=== PATIENT | male | born 1960 | race Caucasian/White ===

== ENCOUNTER 2024-10-15 12:48 | Emergency (ER) | payer MEDICARE, SELFPAY ==
--- NOTE | 2024-10-15 12:51 | ED_ITS ---
HPI - URI/Sore Throat General Chief Complaint: Upper Respiratory Infection Stated Complaint: Sore Throat/Congestion Time Seen by Provider: 10/15/24 13:18 Source: patient and RN notes reviewed Mode of arrival: ambulatory Limitations: no limitations History of Present Illness HPI Narrative: 64-year-old male presents with concern for stuffy nose, drainage, cough that started yesterday. He reports he has taken Tylenol. He denies known sick contacts. MD elicited complaint: cough and nasal congestion Related Data Home Medications ?Medication ?Instructions ?Recorded ?Confirmed ?Last Taken ?Type aspirin 81 mg chewable tablet 10/15/24 Unknown History carisoprodol 350 mg tablet mg 10/15/24 Unknown History carvedilol 12.5 mg tablet mg 10/15/24 Unknown History clonidine HCl 0.1 mg tablet mg 10/15/24 Unknown History fenofibrate micronized 200 mg mg 10/15/24 Unknown History capsule furosemide 40 mg tablet mg 10/15/24 Unknown History gabapentin 300 mg capsule mg 10/15/24 Unknown History hydralazine 100 mg tablet mg 10/15/24 Unknown History hydrocodone 5 mg-acetaminophen 325 tablet 10/15/24 Unknown History mg tablet lisinopril 40 mg tablet mg 10/15/24 Unknown History metformin 500 mg tablet mg 10/15/24 Unknown History omeprazole 20 mg capsule,delayed mg 10/15/24 Unknown History release oxycodone 10 mg tablet mg 10/15/24 Unknown History spironolactone 25 mg tablet mg 10/15/24 Unknown History Allergies Allergy/AdvReac Type Severity Reaction Status Date / Time No Known Allergies Allergy Verified 10/15/24 13:13 Review of Systems Review of Systems: CONSTITUTIONAL: Denies malaise, chills, sweats, or fever. EYES: Denies visual changes, redness, or discharge. ENT: Reports rhinorrhea, congestion. Denies sinus pain, otalgia and sore throa t. CARDIOVASCULAR: Denies chest pain, palpitations, or edema. RESPIRATORY: Reports cough. Denies dyspnea. GASTROINTESTINAL: Denies abdominal pain, nausea, vomiting, diarrhea SKIN: Denies rash or itching. MUSCULOSKELETAL: Denies myalgia. NEUROLOGIC: Denies headache. All systems reviewed & are unremarkable except as noted in HPI and below PMFSH Comments At time of signature, agree with nursing past medical, surgical, social and family history. There is no relevant family history pertinent to the presenting complaint Exam Narrative: GENERAL: Well-appearing, well-nourished, and in no acute distress. HEAD: Normocephalic EYES: PERRLA, conjunctivae clear ENT: Nares clear. Mucous membranes moist. TM pearly ramsay with sharp light reflex bilaterally; no tragal tenderness. Oropharynx not erythematous without lesions. Tonsils not enlarged and without exudate, no drooling, no hoarseness, no trismus, uvula midline. NECK: Supple. No lymphadenopathy CHEST: Clear to auscultation, breath sounds equal. No wheezing, rhonchi, rales, or stridor. No respiratory distress, speaks in full sentences. HEART: Regular rate and rhythm. No murmur heard. SKIN: Warm, dry, no rash. NEURO: Alert and oriented x3. PSYCH: Normal mood and affect Course Course Emergency Course: Patient is aware of diagnosis, understands and agrees to treatment plan. Anticipatory guidance given. Patient agrees to follow-up as directed and is aware of reasons to seek care at the emergency department. Portions of this record may have been created with voice recognition software Level of Care: Express Care Visit Vital Signs Vital signs: Vital Signs Temperature 97.4 F L 10/15/24 12:55 Pulse Rate 76 10/15/24 12:55 Respiratory Rate 16 10/15/24 12:55 Blood Pressure 190/80 H 10/15/24 12:55 Pulse Oximetry 100 10/15/24 12:55 Oxygen Delivery Room Air 10/15/24 12:55 Temperature 97.4 F L 10/15/24 12:55 Pulse Rate 76 10/15/24 12:55 Respiratory Rate 16 10/15/24 12:55 Blood Pressure 190/80 H 10/15/24 12:55 Pulse Oximetry 100 10/15/24 12:55 Oxygen Delivery Room Air 10/15/24 12:55 Reviewed. MDM - URI/Sore Throat MDM Narrative Medical decision making narrative: Differential diagnosis considered: Dumont virus, strep pharyngitis, allergic rhinitis, upper respiratory tract infection, sinusitis, rhinosinusitis, nasopharyngitis. viral pharyngitis, otitis media, otitis externa, pneumonia, bronchitis, viral cough syndrome, viral syndrome, and influenza. Exam findings show no acute concerns or changes; patient is non-toxic appearing and is in no distress. Patient is appropriate for outpatient treatment and follow-up. Lab Data Attestation: I reviewed the patient's lab results. Critical Care Time Critical Care Time Critical Care Time: No Discharge Plan Discharge Clinical Impression: Upper respiratory infection Patient Disposition: Home, Self-Care Condition: Stable Instructions: Upper Respiratory Infection (ED) Additional Instructions: Your rapid COVID and flu tests are negative Your rapid strep swab was negative today at [facility]. A throat culture will be sent to the laboratory for further testing. If the test is positive, you will receive a phone call within 48 hours and an appropriate antibiotic will be initiated at that time. Your symptoms are likely due to a viral illness, which is not treated with antibiotics. Viral symptoms can be present for up to a few weeks. -Alternate Tylenol and Motrin per package directions for fever or pain. -Antihistamine medication such as Benadryl at night and Zyrtec during the day can help improve symptoms. -Eat and drink things that are easy to swallow, like tea or soup, or popsicles to suck on. -Oral rinses such as: Salt water gargles and/or may use topical anesthetic (eg. Chloraseptic spray) or lozenges to relieve dryness or throat pain). -Frequent hand washing or hand tire technician is one of the best ways to prevent spread of infection. -Follow up with primary care provider in 2-3 days if condition is not improving; or seek ER visit if you have trouble breathing, cannot drink enough fluids, have muffled voice, difficulty opening your mouth, or severe swelling. Patient Language: Welsh Prescriptions: New dextromethorphan-guaifenesin [Mucinex DM] 60-1,200 mg tablet extended release 12 hr 1 tablet PO Q12H Qty: 12 0RF ipratropium bromide 21 mcg (0.03 %) spray,non-aerosol 2 spray NASAL TID PRN (Reason: nasal drainage) Qty: 30 0RF Rx Instructions: administer into each nostril No Action carisoprodol 350 mg tablet furosemide 40 mg tablet metformin 500 mg tablet clonidine HCl 0.1 mg tablet carvedilol 12.5 mg tablet hydrocodone-acetaminophen 5-325 mg tablet fenofibrate micronized 200 mg capsule spironolactone 25 mg tablet hydralazine 100 mg tablet gabapentin 300 mg capsule omeprazole 20 mg capsule,delayed release(DR/EC) aspirin 81 mg tablet,chewable lisinopril 40 mg tablet oxycodone 10 mg tablet Follow-up/Referrals: UNKNOWN,DOCTOR [Non-Staff] - Time of Disposition: 13:27
[2024-10-15 12:55] VITALS: BP 190/80; PULSE 76; RESP 16; TEMP 36.3; O2SAT 100
[2024-10-15 13:29] LABS: EDCOVIDSCREEN Negative (Negative); EDINFLUASCREEN Negative (Negative); EDINFLUBSCREEN Negative (Negative); EDSTREPNEGPOS1 Negative (Negative)
--- OUTSIDE RECORDS SUMMARY | 2024-10-15 13:34 | XMS_ITS | Clinical Summary ---
Author Organization [facility] [address] [facility] Address [address] [place] [address] Care Team Providers Care Supervisor [employer] Name Role Phone Unknown, Notinfile Primary Care Provider Unavail able Allergies No known active allergies Medications aspirin 81 mg chewable tablet Take 81 mg by mouth daily 07/08/2016 Active carisoprodoL (SOMA) 350 mg tablet TAKE 1 (ONE) TABLET BY MOUTH NIGHTLY NEEDED 09/30/2022 Active carvediloL (COREG) 12.5 mg tablet 08/12/2022 Active cloNIDine (CATAPRES) 0.1 mg tablet 08/12/2022 Active fenofibrate micronized (LOFIBRA) 200 mg capsule 08/12/2022 Active furosemide (LASIX) 40 mg tablet Take 1 tablet by mouth daily 11/05/2021 Active hydrALAZINE (APRESOLINE) 100 mg tablet 08/15/2022 Activ e lisinopriL (PRINIVIL,ZESTR IL) 40 mg tablet 08/12/2022 Active metFORMIN (GLUCOPHAGE) 500 mg tablet 08/12/2022 Activ e oxyCODONE-aceta minophen (PERCOCET) 10-325 mg per tablet Take 1 tablet by mouth every 4 (four) hours as needed for pain 09/29/2022 Active simvastatin (ZOCOR) 80 mg tablet 08/12/2022 Active spironolactone (ALDACTONE) 25 mg tablet 08/12/2022 Active Active Problems No known active problems Surgical History Surgery Date Site/Laterality Comments CARDIAC STENT PLACEMENT 2001 approx OTHER SURGICAL HISTORY 1984, multiple fractures from fall 2.5 stories at [employer] job, multiple surgeries due to accident Medical History Medical History Date Comments High blood pressure Borderline diabetic Social History Tobacco Use Types Packs/Day Years Used Date Smoking Tobacco: Former Cigarettes Q uit: 2001 Smokeless Tobacco: Never Tobacco Cessation:Counseling Given: Not Answered Personal Safety Answer Date Recorded Getting School Help Needed Not on file 09/10 Sex and Gender Information Value Date Recorded Sex Assigned at Not on file Legal Sex Male 7:27 AM [employer] Gender Identity Not on file Sexual Orientation Not on file Obstetrics History Last Filed Vital Signs Vital Sign Reading Time Taken Comments Blood Pressure 194/84 10/14/2022 4:10 PM [employer] patient states he has not taken his BP meds regularly since became ill 2 days ago Pulse 76 10/14/2022 4:10 PM [employer]INE [employer] Temperature 36.7 C (98 F) 10/14/2022 4:10 PM [employer]INE SUR[employer]OR Respiratory Rate 16 10/14/2022 4:10 PM [employer]INE SUR[employer] Oxygen Saturation 97% 10/14/2022 4:1 0 PM [employer]INE [employer]OR Inhaled Oxygen Concentration - - Weight 98.9 kg (218 lb) 10/14/2022 4:10 PM [employer]INE SUR[employer]YOR Height 182.9 cm (6') 10/14/2022 4:10 PM [employer]INE SUR[employer] Body Mass Index 29.57 10/14/2022 4:10 PM MARINE SUR[employer]YOR Plan of Treatment Health Maintenance Due Date Last Done Comments Colon Cancer Screening-Colonoscopy 1959 Depression Screening 1959 Fall Risk Assessment 1959 Hepatitis C Screening 1959 Prostate Cancer Screening-PSA 1959 Hepatitis B Screening 1977 Abdominal Aortic Aneurysm (A AA) Screen 2024 Well Visit 65+ 2024 Covid-19 Vaccine (6 2023-2 5 season) 2024 03/13/2022, 03/02/2022, 06/28/2021, Additional history exists Influenza Vaccine (#1) 2024 , 06/30/2022, 06/13/2021, Additional history exists DTaP/Tdap/Td Vaccine (2 - Td or Tdap) 05/27/2029 05/27/2019 Zoster Vaccine Completed 03/13/2019, 12/24/2018 Pneumococcal vaccine 65+ Completed 03/28/2022, 09/04 Insurance [employer] [address] [facility] CHOICE PLUS [facility] H[facility]/PPO Address: [address] [address] [place] [address] [address] [employer] [address] [facility] CHOICE PLUS Member Subscriber Plan / Payer (Ef fective 2022-Present) Name:Tyrell Islas Relation to Subscriber:Spouse Name:SIOMARA ISLAS Date of :1962 (Home) Address: [address] Payer ID:[id number] (NAIC) Type:[facility] HMO/PPO Address: [address] [address] [place] [address] Care Teams Supervisor Game [employer] Relationship Specialty Start Date End Date Unknown, Notinfile PCP - General 10/14/22
--- OUTSIDE RECORDS SUMMARY | 2024-10-15 13:34 | XMS_ITS | Clinical Summary ---
Author Organization [facility] Address [address] [place] [address] Care Team Providers Care Skidway Worker Name Role Phone Hazel Boyer MD Primary Care Provider [phone] Gordy Yancey MD Unavailable Source Comments [facility],non-owned Affiliates and Associated Physician Practices is amultiple site organization consisting of ambulatory clinics and hospital sitesin [place], [place] and [place]. This disclosure is being madepursuant to the Care Everywhere program and may not contain all information available regarding this patient. Last updated 18.[facility] Allergies No known active allergies Medications * Be aware that medications may not be up to date on this document. Alwaysverify current medications with the patient. Medication Sig Dispensed Refills Start Date End Date Status FREESTYLE LITE STRIPS test strip Use 1 strip as directed 100 strip 11 09/13/2019 Active Additional Information Patient taking differently:1 strip Does not applyDAILY, Reported on 08/23/2022 simvastatin (Zocor) 80 MG tablet TAKE 1 TABLET DAILY 90 tablet 3 08/09/2023 Active Additional Information Patient taking differently:80 mg OralAT BEDTIME, Reason: Other, Reported on 07/23/2024 furosemide (Lasix) 40 MG tablet TAKE 1 TABLET DAILY 90 tablet 3 01/23/2024 Active hydrALAZINE (Apresoline) 100 MG tablet TAKE 1 TABLET THREE TIMES A DAY 270 tablet 5 03/28/2024 Active gabapentin (Neurontin) 300 MG capsule Take 1 (one) capsule by mouth 3 times daily 270 capsule 07/15/2024 Active Multiple Vitamin (MULTIVITAMIN PO) Active spironolactone (Aldactone) 25 MG tablet TAKE 1 TABLET BY MOUTH DAILY 90 tablet 3 08/26/2024 Active cloNIDine (Catapres) 0.1 MG tablet TAKE 1 TABLET BY MOUTH AT BEDTIME 90 tablet 3 08/26/2024 Active fenofibrate micronized (Lofibra) 200 MG capsule TAKE 1 CAPSULE BY MOUTH DAILY 90 capsule 3 08/26/2024 Active lisinopril (Prinivil; Zestril) 40 MG tablet TAKE 1 TABLET BY MOUTH DAILY 90 tablet 3 08/26/2024 Active carvedilol (Coreg) 12.5 MG tablet TAKE 1 TABLET BY MOUTH TWICE DAILY WITH MORNING AND EVENING MEAL 180 tablet 3 08/26/2024 Active metFORMIN (Glucophage) 500 MG tablet TAKE 1 TABLET BY MOUTH 3 TIMES DAILY WITH MEALS FOR TYPE 2 DIABETES MELLITUS WITHOUT COMPLICATION, WITHOUT HALF-WAY CURRENT USE OF INSULIN 270 tablet 3 08/26/2024 Active acetaminophen (Tylenol) 500 MG tablet Take 2 (two) tablets by mouth 3 times daily Maximum allowable Acetaminophen amount = 4 Grams (4000 mg) / 24 hours. Take every three times a day for the first 10 days when home. After 10 days, take as needed. 09/13/2024 Active aspirin (Aspirin) 81 MG chew tablet Chew and swallow 1 (one) tablet by mouth 2 times daily for 42 days Take twice daily until 10/25 for blood clot prevention. After 10/25, okay to resume once daily. 84 tablet 09/14/2024 5 Active omeprazole (PriLOSEC) 20 MG capsule Take 1 (one) capsule by mouth once daily for 42 days 42 capsule 09/14/2024 5 Active oxyCODONE, immediate release, (Roxicodone) 10 MG tabletIndicatio ns:Postoperativ e pain Take 0.5 (one-half) tablet to 1 (one) tablet by mouth every 4 hours as needed for Pain (PAIN) 42 tablet 09/30/2024 Active oxyCODONE, immediate release, (Roxicodone) 10 MG tabletIndicatio ns:Postoperativ e pain Take 0.5 (one-half) tablet to 1 (one) tablet by mouth every 4 hours as needed for Pain (PAIN) 42 tablet 09/14/2024 5 Discontinue d(Reorder) Active Problems Problem Noted Date Diagnosed Date Hip arthritis 09/13/2024 Pain management contract agreement 04/28/2023 Overview (04/28/2023): Updated April, Opioid use 03/28/2022 Basal cell carcinoma (BCC) of skin of face 03/30 Overview (03/30/2021): Sees dermatology- Dr Mckay and Anahy. 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 He has had multiple surgeries on hands, shoulders. And had surgery on left hip. He has chronic hand, hip, back and shoulder pain. No hx of opioid abuse and uses pain meds rarely and sporadically with pain flare up. Update 03/28/2022. 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 Hospitalized 2 weeks. Had rehab. In traction. Reconstruction both hands. Bilateral elbow fractures. Broke all his teeth and had broken ribs. Had hand surgery by Dr Yu in - 1985. Had left shoulder damage. He has not been able to work since then. He's been on disability since then. He saw a Dr Reeder (ortho). He used to see Dr Donnelly as primary MD at that time. He has had shoulder surgery again around [address] Brittany Martinez (ortho)- He sees chiropractor for his hips. He had hip pain related to the fall as well. 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 Hospitalized 2 weeks. Had rehab. In traction. He had head injury. Reconstruction both hands. Bilateral elbow fractures. Broke all his teeth and had broken ribs. Had hand surgery by Dr Yu in - 1985. Had left shoulder damage. He has not been able to work since then. He's been on disability since then. He saw a Dr Reeder (ortho). He used to see Dr Donnelly as primary MD at that time. He has had shoulder surgery again around [address] Brittany Martinez (ortho)- He sees chiropractor for his hips. He had hip pain related to the fall as well. Sprain of medial collateral ligament of right knee 10/19/2018 03/14/2019 Effusion of right knee 10/19/201803/14 Primary osteoarthritis of right knee 10/19/2018 03/14/2019 Abnormal weight loss 08/06/2018 021 Loss of appetite 08/06/2018 03/17/2020 S/P arthroscopy of shoulder - W/SHAVING OF LABRUM, OPEN BICEPS TENODESIS & OPEN EXCISION OF DISTAL CLAVICLE & ACROMIOPLASTY 05/16/201705/31 Degenerative tear of glenoid labrum of right shoulder 04/11/2017 05/31/2018 Rupture long head biceps tendon 04/10/2017 05/31/2018 DJD of right AC (acromioclavicular) joint 03/14/2017 05/31/2018 Impingement syndrome, shoulder 03/14/2017 05/31/2018 History of shoulder surgery - right - approx in 69 03/14/2017 05/31/2018 Biliary dyskinesia 08/17/2016 8 Epigastric pain 07/07/2016 05/31/2018 Acute idiopathic gout 07/14/20152014 Proximal LAD BMS in 200104/22/201301/2014 100% mid RCA occlusion 04/22/201305/15 Proximal LAD stent in 2001, RCA occlusion 03/15/2012 05/15/2015 Ischemic cardiomyopathy, mild 03/15/2012 05/15/2014 HTN, severe 03/15/2012 07/14/2015 Diabetes mellitus, type 2 03/15/2012 Mixed hyperlipidemia 03/15/2012 015 Coronary atherosclerosis of ute coronary artery 03/13/2012 04/22/2013 HTN 03/13/2012 05/15/2015 Pure hypercholesterolemia 03/13/2012 Pure hyperglyceridemia 03/13/201204/22 Nephrolithiasis 03/13/2012 05/31/2018 Gout 03/13/2012 07/14/2015 Encounters Date Type Department Care Team Description 10/03/2024 9:35 AM GEOTHERMAL TECHNICIAN Ancillary Procedure [facility] - Radiology [address] [place] [phone] Anamaria Frausto PA S/P total left hip arthroplasty, dos 09/13/24; S/P total left hip arthroplasty 10/03/2024 9:30 AM GEOTHERMAL TECHNICIAN Office Visit [facility] [address] [place] [address], [facility] [address] [place] [address] Anamaria Frausto PA S/P total left hip arthroplasty, dos 09/13/24 (Primary Dx) 09/30/2024 Refill [facility] [address] [place] [address], [address] [phone] Abdiaziz Flores IV, MD MEDICATION REFILL 09/16/2024 Transitional Care [facility] - Care Coordination [address] [place] [address] Perlita Mims MSW Transitional Care 09/14/2024 Refill [facility] [address] [place] [phone] Abdiaziz Flores IV, MD MEDICATION REFILL 09/13/2024 10:47 AM GEOTHERMAL TECHNICIAN Anesthesia Event [facility] - Perioperative Surgery [address] [place] [address] Marycruz Valentin DO Shaw, Thomas J, DO 09/13/2024 8:45 AM GEOTHERMAL TECHNICIAN - 09/13/2024 11:19 AM GEOTHERMAL TECHNICIAN Surgery [facility] - Perioperative Surgery [address] [phone] Abdiaziz Flores IV, MD ARTHROPLASTY LEFT TOTAL HIP (ANTERIOR) 09/13/2024 6:41 AM GEOTHERMAL TECHNICIAN - 09/15/2024 12:49 PM GEOTHERMAL TECHNICIAN Hospital Encounter [address] [address] [place] [address] Abdiaziz Flores IV, MD Surgery Orthopedics Discharge Disposition: Home Health Care Sv 09/13/2024 Refill [facility] [address] [facility], [address] [place] [phone] Abdiaziz Flores IV, MD Refill Request 09/13/2024 Travel 09/10/2024 Telephone [facility] [address] [facility], [address] [place] [phone] Abdiaziz Flores IV, MD Surgery Scheduling 08/27/2024 Refill [facility] [address] [facility] [address] [place] [phone] Hazel Boyer MD Refill Request 08/25/2024 Refill [facility] [address] [facility] [address] [place] [address] Hazel Boyer MD Refill Request 08/25/2024 Refill [facility] [address] [facility] [address] [place] [address] Amalia Mckee Jr., MD Refill Request 08/20/2024 9:30 AM GEOTHERMAL TECHNICIAN Office Visit [facility] [address] [facility], [address] [place] [phone] Lazaro Gaona MD CAD in ute artery (Primary Dx); Preoperative cardiovascular examination; Stented coronary artery 08/20/2024 Travel 07/25/2024 Refill [facility] [address] [facility] [address] [place] [address] Hazel Boyer MD MEDICATION REFILL 07/23/2024 11:08 AM GEOTHERMAL TECHNICIAN - 07/23/2024 11:59 PM GEOTHERMAL TECHNICIAN [facility] [id number] [place] [address] [address] [place] [phone] Abdiaziz Flores IV, MD Discharge Disposition: Home or Self Care 07/23/2024 10:00 AM GEOTHERMAL TECHNICIAN Office Visit [address] [address] Hazel Boyer MD Type 2 diabetes mellitus without complication, without long-term current use of insulin (HCC) (Primary Dx); Essential hypertension; Coronary artery disease involving ute heart without angina pectoris, unspecified vessel or lesion type; Mixed hyperlipidemia; Anemia, unspecified type; Idiopathic gout, unspecified chronicity, unspecified site; Spinal stenosis, unspecified spinal region; Basal cell carcinoma (BCC) of skin of face, unspecified part of face 07/23/2024 Travel 07/16/[address] [address] Hazel Boyer MD MEDICATION REFILL from Last 3 Months Immunizations Name Administration Dates Next Due INFLUENZA VACCINE, TRIV. (AF LURIA, FLUZONE TRIVALENT; 6MO+) (IIV3) 07/07/2014 Covid Moderna primary monova lent 12+ yr 0.5mL 06/28/2021,11/03/2020,10/01/2020 INFLUENZA VACCINE 05/29/2018, 7,07/07/2014,2012 INFLUENZA VACCINE, ADJUVANTE D, TRIV. (FLUAD TRIVALENT; 65Y+) (AIIV3) 06/18/2024 INFLUENZA VACCINE, CELL CULT URE, QUADR. (FLUCELVAX QUADRIVALENT; 6MO+) (CCIIV4) 06/30/2022,06/15/2017 INFLUENZA VACCINE, QUADR. (F LUZONE; FLULAVAL; FLUARIX; AFLURIA QUADRIVALENT; 6MO+), 0.5 ML (IIV4) 06/13/2021,06/11/2020,05/27/2019,2017,07/08/2016,07/14/2015 Influenza Pf Intradermal (ADULT) 09/27/2012 MODERNA SARS-COV-2 COVID-19 VACCINE 0.25ML 03/13/2022 PNEUMOCOCCAL PCV20 CONJ VAC IM 03/28/2022 PNEUMOCOCCAL PPSV23 09/15/2020 TDAP (7yrs+) 05/27/2019 Zoster Hzv Vacc Recombinant Inj Im 03/13/2019, Family History Medical History Relation Name Comments Arthritis - Rheumatoid Father CAD (Coronary Artery Disease) Father Heart Failure Father Hypertension Father Alzheimer's Disease Mother Arthritis - Osteo Mother CAD (Coronary Artery Disease) Mother Diabetes Mother Hypertension Mother Diabetes Sister 2 Hypertension Sister 3 Relation Name Status Comments Father Mother Sister 1 Alive Sister 2 Sister 3 Social History Tobacco Use Types Packs/Day Years Used Date Smoking Tobacco: Former Cigarettes 1 25 0 04/17/1977 - 04/17/2002 Smokeless Tobacco: Never Tobacco Cessation:Counseling Given: Not Answered Alcohol Use Standard Drinks/Week Comments Yes 1 (1 standard drink = 0.6 oz pur e alcohol) beer occasional AUDIT-C Answer Date Recorded Q1: How often do you have a drink containing alcohol? Monthly or less 09/13/2024 Q2: How many drinks containi ng alcohol do you have on a typical day when you are drinking? Patient does not drink Q3: How often do you have si x or more drinks on one occasion? Never 09/13/2024 Overall Financial Resource Strain (CARDIA) Answe r Date Recorded How hard is it for you to pa y for the very basics like food, housing, medical care, and heating? Not hard at all 09/13/2024 PHQ-2 Answer Date Recorded Patient Health Questionnaire-2 Score 0 09/26/2024 [facility] - Occupational Stress Questionnaire Answer Date Recorded Do you feel stress - tense, restless, nervous, or anxious, or unable to sleep at night because your mind is troubled all the time - these days? Not at all 09/13/2024 Hunger Vital Sign Answer Date Recorded Within the past 12 months, y ou worried that your food would run out before you got the money to buy more. Never true 09/13/19 25 Within the past 12 months, t he food you bought just didn't last and you didn't have money to get more. Never true 09/13/2024 PRAPARE - Transportation Answer Date Re corded In the past 12 months, has l ack of transportation kept you from medical appointments or from getting medications? No 09/04 In the past 12 months, has l ack of transportation kept you from meetings, work, or from getting things needed for daily living? No 09/13/2024 Housing Stability Vital Sign Answer Massimo e Recorded In the last 12 months, was t here a time when you were not able to pay the mortgage or rent on time? No 09/13/2024 In the past 12 months, how m any times have you moved where you were living? 1 09/13/2024 At any time in the past 12 m [facility], were you homeless or living in a half-way (including now)? No 09/13/2024 Sex and Gender Information Value Date Recorded Sex Assigned at Male 10/06/2023 9:29 AM GEOTHERMAL TECHNICIAN Gender Identity Not on file Sexual Orientation Not on file Last Filed Vital Signs Vital Sign Reading Time Taken Comments Blood Pressure 177/62 09/15/2024 9:42 AM GEOTHERMAL TECHNICIAN sit ting EOB Pulse 81 09/15/2024 9:42 AM GEOTHERMAL TECHNICIAN Temperature 36.7 C (98 F) 09/15/2024 7:39 AM GEOTHERMAL TECHNICIAN Respiratory Rate 18 09/15/2024 7:39 AM GEOTHERMAL TECHNICIAN Oxygen Saturation 94% 09/15/2024 9:42 AM GEOTHERMAL TECHNICIAN Inhaled Oxygen Concentration - - Weight 98 kg (216 lb) 09/13/2024 7:14 AM GEOTHERMAL TECHNICIAN Height 177.8 cm (5' 10 ) 09/13/2024 7:14 AM GEOTHERMAL TECHNICIAN Body Mass Index 30.99 09/13/2024 7:14 AM GEOTHERMAL TECHNICIAN Plan of Treatment Upcoming Encounters Date Type Department Care Team (Late st Contact Info) Description 10/21/2024 11:50 AM GEOTHERMAL TECHNICIAN Office Visit [facility] [address] [place] [address], [address] [phone] [place] [address] [address] [address] 12/02/2024 11:40 AM CDT Office Visit [facility] [address] [place] [address], [address] [phone] [place] [address] [address] [address] 01/22/2025 10:00 AM CDT Office Visit [facility] Medicine [address] [facility] [address] [place], [place] [phone] [place] [address] [facility] [address] [place] [address] 02/20/2025 10:20 AM CDT Office Visit [facility] [address] [facility], [address] [place], [place] [phone] [place] [address] [facility] [address] [place], [place] [phone] Health Maintenance Due Date Last Done Comments COLOGUARD (AGES 45-75) - COLON CA SCREENING 1959 CT COLONOGRAPHY - COLON CA SCREENING 1959 FIT - COLON CA SCREENING 1959 FLEX SIG - COLON CA SCREENING 1959 AAA SCREENING 2024 PROSTATE CA SCREENING 05/02/2024 05/02/2023 , 04/07/2022, 04/01/2021, Additional history exists DIABETES - URINE PROTEIN SCREENING 09/04/2024 01/02/2024, 11/27/2017, 01/06/2014, Additional history exists MEDICARE AWV CALENDAR YEAR 2024 07/23/2024 DIABETES-HGB A1C 11/10/2024 05/13/2024, , 10/12/2023, Additional history exists DIABETES-FOOT EXAM WITH MONOFILAMENT 01/01/2025 01/02/2024, 01/02/2024, 03/28/2022, Additional history exists Respiratory Syncytial Virus (RSV) Vaccine Pt: or over 60 yrs (1 - Risk 60-74 years 1-dose series) 01/01/2025 Postponed fro m 2019 (Patient Directed) COVID-19 VACCINE ( season) 2025 03/13/2022, 06/28/2021, 11/03/2020, Additional history exists Postponed from 05/05/2024 (Patient Refused) DIABETES-SERUM CREATININE 09/15/20252024, 09/14/2024, 09/13/2024, Additional history exists DIABETES RETINOPATHY SCREENING 01/01/2026 01/02/2024, 10/08/2021, 03/30/2021, Additional history exists COLON MONITORING 08/14/2028 08/14/2018, 07/2018, 07/11/2016 COLONOSCOPY - COLON CA SCREENING 08/14/2028 08/14/2018, 08/14/2018, 07/11/2016 Colorectal Cancer Screening 08/14/2028 DTAP/TDAP/TD VACCINES (2 - Td or Tdap) 05/27/2029 05/27/2019 HEPATITIS C SCREENING Completed 05/31/2018 ZOSTER VACCINE Completed 03/13/2019, 12/24/2018 PNEUMOCOCCAL VACCINE 50+ Completed 03/28/2022, 09/04 INFLUENZA VACCINE Completed 06/18/2024, , 06/13/2021, Additional history exists DEPRESSION SCREENING Completed 10/03/2024, 01/02/2024, 09/29/2022, Additional history exists HEPATITIS B VACCINE Aged Out No longe r eligible based on patient's age to complete this topic HIB VACCINE Aged Out No longer eligi ble based on patient's age to complete this topic HIV SCREENING Discontinued HPV VACCINE Aged Out No longer eligi ble based on patient's age to complete this topic MENINGOCOCCAL (Group B) VACCINE Aged Out No longer eligible based on patient's age to complete this topic MENINGOCOCCAL VACCINE Aged Out No anup rickey eligible based on patient's age to complete this topic Medical Devices Implanted Type Area On Site Services Specialist Device Identifier Shelf Expiration Date Model / Serial / Lot Tsaile Sut Swivelock Tenodesis 7mm Bcmps Implanted:Qty: 1 on 05/03/2017 by Codey Ireland MD at [facility] Right: Shoulder [employer] 09/03/2018 [id number] / / [id number] Shell Actb 54mm Hip 4 Hl Clr Cd [place] Implanted:Qty: 1 on 09/13/2024 by Abdiaziz Flores IV, MD at [facility] Left: Hip [employer] 06/03/2034 [id number] / / [id number] Acetabular System Longevity Highly Crosslinked Polyethylene Liner +5mm Offset Implanted:Qty: 1 on 09/13/2024 by Abdiaziz Flores IV, MD at [facility] Left: Hip [employer] 10/18/2028 [id number] / / [id number] Head Fem +4mm 08/17 Tpr 36mm Hip Oxnm Implanted:Qty: 1 on 09/13/2024 by Abdiaziz Flores IV, MD at [facility] Left: Hip [employer] 05/25/2034 [id number] / / [id number] Stem Fem 143mm Hip 126d 4 08/17 Lat Ofst Implanted:Qty: 1 on 09/13/2024 by Abdiaziz Flores IV, MD at [facility] Left: Hip [employer] 02/18/2031 [id number] / / [id number] Explanted Type Area On Site Services Specialist Device Identifier Shelf Expiration Date Model / Serial / Lot Pin Hlf 255mm 5mm Jtx Lng Orth Ss 45mm Explanted:Qty: 1 on 09/13/2024 at [facility] Left: Hip [employer] [id number] / / Procedures Procedure Name Priority Date/Time Associated Diagnosis Comments XR HIP LEFT 2VW OR MORE Routine 10/03/2024 9:35 AM GEOTHERMAL TECHNICIAN S/P total left hip arthroplasty GLUCOSE - POINT OF CARE Routine 09/15/2024 11:20 AM GEOTHERMAL TECHNICIAN GLUCOSE - POINT OF CARE Routine 09/15/2024 7:36 AM GEOTHERMAL TECHNICIAN BASIC METABOLIC PANEL (CALCIUM TOTAL) AM Draw 09/15/2024 5:36 AM GEOTHERMAL TECHNICIAN GLUCOSE - POINT OF CARE Routine 09/14/2024 8:35 PM GEOTHERMAL TECHNICIAN GLUCOSE - POINT OF CARE Routine 09/14/2024 6:00 PM GEOTHERMAL TECHNICIAN GLUCOSE - POINT OF CARE Routine 09/14/2024 11:28 AM GEOTHERMAL TECHNICIAN GLUCOSE - POINT OF CARE Routine 09/14/2024 8:10 AM GEOTHERMAL TECHNICIAN BASIC METABOLIC PANEL (CALCIUM TOTAL) AM Draw 09/14/2024 6:08 AM GEOTHERMAL TECHNICIAN Stage 3 chronic kidney disease, unspecified whether stage 3a or 3b CKD (HCC) GLUCOSE - POINT OF CARE Routine 09/13/2024 3:22 PM GEOTHERMAL TECHNICIAN GLUCOSE - POINT OF CARE Routine 09/13/2024 1:23 PM GEOTHERMAL TECHNICIAN FL GINA SURGERY Routine 09/13/2024 12:30 PM GEOTHERMAL TECHNICIAN Hip arthritis NEURAXIAL BLOCK Routine 09/13/2024 11:16 AM GEOTHERMAL TECHNICIAN NV TOTAL HIP REPLACEMENT 09/13/2024 10:32 AM GEOTHERMAL TECHNICIAN Special Needs S&N (ALEJANDRA) NOTIFIED-NB BASIC METABOLIC PANEL (CALCIUM TOTAL) STAT 09/13/2024 7:39 AM GEOTHERMAL TECHNICIAN Preop testing FRUCTOSAMINE STAT 07/23/2024 12:10 PM GEOTHERMAL TECHNICIAN Preop testing COMPREHENSIVE METABOLIC PANEL STAT 07/23/2024 12:10 PM GEOTHERMAL TECHNICIAN Preop testing EKG 12-LEAD STAT 07/23/2024 12:06 PM GEOTHERMAL TECHNICIAN Preop testing HEMOGLOBIN A1C W EAG Routine 05/13/2024 2:38 PM CDT Type 2 diabetes mellitus without complication, without long-term current use of insulin (HCC) PROC OPH DIAB BILAT RET SCRN WCOMP INTERP Routine 01/02/2024 10:50 AM CDT Type 2 diabetes mellitus without complication, without long-term current use of insulin (HCC) MICROALBUMIN URINE - POINT OF CARE (AMB) Routine 01/02/2024 10:29 AM CDT Type 2 diabetes mellitus without complication, without long-term current use of insulin (HCC) PROSTATE SPECIFIC ANTIGEN SCREEN Routine 05/02/2023 9:56 AM CDT Screening PSA (prostate specific antigen) ENDOSCOPY, COLON, SCREENING Routine 08/14/2018 2:12 PM GEOTHERMAL TECHNICIAN Screening for colorectal cancer HEPATITIS C ANTIBODY Routine 05/31/2018 9:34 AM CDT Encounter for hepatitis C screening test for low risk patient from Last 3 Months or Most Recently Relevant to Health Maintenance Results * XR Hip Left 2Vw or More (10/03/2024 9:35 AM GEOTHERMAL TECHNICIAN) Narrative [facility] [address] - 10/03/2024 9:35 AM GEOTHERMAL TECHNICIAN Please see progress note in Epic for results. Anamaria [facility] O RDERABLES [facility] [address] * (ABNORMAL) GLUCOSE - POINT OF CARE (09/15/2024 11:20 AM GEOTHERMAL TECHNICIAN) Only the most recent of8 resultswithin the time period is included. Glucose WB/POC 160(H) 70 - 99 mg/dL 09/15/2024 11:22 AM GEOTHERMAL TECHNICIAN [facility] Specimen Type Cap Fingerstick 2024 11:22 AM GEOTHERMAL TECHNICIAN [facility] Blood BLOOD SPECIMEN / Unknown 09/15/2024 11:20 AM GEOTHERMAL TECHNICIAN 09/15/2024 11:22 AM GEOTHERMAL TECHNICIAN Abdiaziz Flores IV, MD LAB - POINT OF CARE ORDERABLES [facility] [address] [place] [address] * (ABNORMAL) BASIC METABOLIC PANEL (CALCIUM TOTAL) (09/15/2024 5:36 AM GEOTHERMAL TECHNICIAN) Only the most recent of3 resultswithin the time period is included. Glucose 129(H) 70 - 99 mg/dL 09/15/2024 6:18 AM GEOTHERMAL TECHNICIAN [facility] Sodium 133(L) 136 - 145 mmol/L 09/15/2024 6:18 AM [facility] Potassium 4.1 3.5 - 5.1 mmol/L 09/15/2024 6:18 AM [facility] Chloride 100 98 - 107 mmol/L 09/15/2024 6:18 AM [facility] CO2 24 22 - 29 mmol/L 09/15/2024 6:18 AM [facility] Calcium 8.6 8.4 - 10.4 mg/dL 09/15/2024 6:18 AM [facility] Anion Gap 9 6 - 16 mmol/L 09/15/2024 6:18 AM [facility] BUN 23 7 - 26 mg/dL 09/15/2024 6:18 AM [facility] Creatinine 1.40(H) 0.72 - 1.25 mg/dL 09/15/2024 6:18 AM [facility] eGFR by CKD-EPI 56(L) >=90 mL/min/1.7 3 m2 09/15/2024 6:18 AM [facility] Blood BLOOD SPECIMEN / Unknown Venipuncture / Unknown 09/15/2024 5:36 AM GEOTHERMAL TECHNICIAN 09/15/2024 5:46 AM GEOTHERMAL TECHNICIAN Eve Courtney MD LAB - CHEMISTRY ORDE GREGORY Performing Organization Address [facility] de Phone Number [facility] [address] [place] [address] * [place] Gina Surgery (09/13/2024 12:30 PM GEOTHERMAL TECHNICIAN) Narrative [facility] - 09/13/2024 5:22 PM GEOTHERMAL TECHNICIAN For details of this study, please see the providers note. Abdiaziz Flores IV, MD FLUOROSCOPY ORDERABL ES Performing Organization Address [facility] Co de Phone Number [facility] [address] [place] [address] * Neuraxial Block (09/13/2024 11:16 AM GEOTHERMAL TECHNICIAN) Narrative Porfirio Deutsch, VICKY-RESEARCH CLERK - 09/13/2024 11:16 AM GEOTHERMAL TECHNICIAN Porfirio Deutsch, VICKY-RESEARCH CLERK 09/13/2024 11:17 AM Neuraxial Block Note Pre-Procedure: Procedure Name: Neuraxial Block Patient Location: OR Indications: surgical anesthesia Pre-Anesthetic Checklist: Patient identified, IV Checked, Risks and benefits discussed, Surgical consent verified, Monitors and equipment, Site examined, Pre-op evaluation done, Informed consent obtained, Questions answered/anesthesia questions answered and Allergies reviewed Anticoagulation/ Anti-thrombosis status confirmed? Yes Supplemental O2: room air Monitors: continuous pluse ox and BP Patient Condition: sedated, meaningful contact maintained throughout procedure Patient Sedated? Nursing sedation administration Sedation Type: mild Sedation Agents (manual): versed fentanyl mL Procedure: Block Type: Spinal Prep: Betadine Sterile Field: mask, cap/hat, sterile established and sterile gloves Approach: right paramedian Skin was localized? Nursing documentation on MAR Skin localized with: Lidocaine 1% and 2 mL Spinal Block: Needle Type: spinal needle Needle Gauge: 22 Needle Length: 90 mm Placement Site: L3-4 Number of Attempts: 2 CSF: free flow, aspiration before injection Degree of difficulty: moderate Procedure Tolerance: tolerated well performed while the patient was sedated Sensory Level: lower level Motor Blockade: Yes Position post procedure: supine Vital Signs: Vital signs monitored and stable throughout. See anesthesia record for details. Start Time: 09/13/2024 10:46 AM End Time: 09/13/2024 10:57 AM Total Time: 11 Staff: Anesthesia Provider: Porfirio Deutsch APRN-RESEARCH CLERK - performed the procedure Marycruz Valentin DO GENERAL ANESTHESIA O RDERABLES * FRUCTOSAMINE (07/23/2024 12:10 PM GEOTHERMAL TECHNICIAN) Fructosamine 280 205 - 285 umol/L 07/24/2024 9:00 PM GEOTHERMAL TECHNICIAN [employer] ([facility]) Comment: INTERPRETIVE INFORMATION: Fructosamine Variations in levels of serum proteins (albumin and immunoglobulins) may affect fructosamine results. Performed By: [facility] [address] [place] [address] Passenger T[employer] Inspector: Mandeep Rose MD, PhD CLIA Number: [id number] Blood BLOOD SPECIMEN / Unknown Venipuncture / Unknown 07/23/2024 12:10 PM GEOTHERMAL TECHNICIAN 07/23/2024 12:18 PM GEOTHERMAL TECHNICIAN Karla Magana MOLDER MACHINE TENDER-TUBING TESTER LAB - CHEMISTRY O RDERABLES FORMERLY [facility] ([facility]) [address] [place] [address], [facility] * (ABNORMAL) COMPREHENSIVE METABOLIC PANEL (07/23/2024 12:10 PM GEOTHERMAL TECHNICIAN) Glucose 107(H) 70 - 99 mg/dL 07/23/2024 12:35 PM GEOTHERMAL TECHNICIAN [facility] Sodium 140 136 - 145 mmol/L 07/23/2024 12:35 PM [facility] Potassium 4.2 3.5 - 5.1 mmol/L 07/23/2024 12:35 PM [facility] Chloride 103 98 - 107 mmol/L 07/23/2024 12:35 PM [facility] CO2 29 22 - 29 mmol/L 07/23/2024 12:35 PM [facility] Calcium 9.5 8.4 - 10.4 mg/dL 07/23/2024 12:35 PM [facility] Anion Gap 8 6 - 16 mmol/L 07/23/2024 12:35 PM [facility] BUN 25 7 - 26 mg/dL 07/23/2024 12:35 PM [facility] Creatinine 1.35(H) 0.72 - 1.25 mg/dL 07/23/2024 12:35 PM [facility] Alkaline Phosphatase 41 40 - 150 U/L 07/23/2024 12:35 PM [facility] ALT 14 0 - 55 U/L 07/23/2024 12:35 PM [facility] AST 18 5 - 34 U/L 07/23/2024 12:35 PM [facility] Protein Total 7.0 6.4 - 8.3 gm/dL 07/23/2024 12:35 PM [facility] Albumin 3.8 3.4 - 5.0 gm/dL 07/23/2024 12:35 PM [facility] Bilirubin Total 0.5 0.2 - 1.2 mg/dL 07/23/2024 12:35 PM [facility] eGFR by CKD-EPI 58(L) >=90 mL/min/1.7 3 m2 07/23/2024 12:35 PM [facility] Blood BLOOD SPECIMEN / Unknown Venipuncture / Unknown 07/23/2024 12:10 PM GEOTHERMAL TECHNICIAN 07/23/2024 12:18 PM GEOTHERMAL TECHNICIAN Karla PRESSLEYTUBING TESTER LAB - CHEMISTRY O RDERABLES [facility] [address] [place] [address] * EKG 12-LEAD (07/23/2024 12:06 PM GEOTHERMAL TECHNICIAN) Ventricular Rate 59 BPM [facility] Atrial Rate 59 BPM [facility] P-R Interval 154 ms [facility] QRS Duration ms 88 ms [facility] Q-T Interval ms 432 ms [facility] QTC Calculation (Bezet) 427 ms [facility] Calculated P [place] 38 degrees [facility] Calculated R [place] 27 degrees [facility] Calculated T [place] -179 degrees [facility] Interpretation EKG Sinus bradycardia ST & T wave abnormality, consider inferolateral ischemia Abnormal ECG When compared with ECG of 12-OCT-2023 09:26, No significant change was found Confirmed by BELLA PÉREZ MD ([id number]) on 07/23/2024 7:18:04 PM [facility] 07/23/2024 12:0 6 PM GEOTHERMAL TECHNICIAN 07/23/2024 7:18 PM GEOTHERMAL TECHNICIAN Marycruz Valentin DO ECG ORDERABLES Performing Organization Address City/[facility]/ZIP Co de Phone Number [facility] * (ABNORMAL) HEMOGLOBIN A1C W EAG (05/13/2024 2:38 PM CDT) Hemoglobin A1c 6.7(H) 4.8 - 5.6 % [facility] ACCOUNT BILL Comment: . Prediabetes: 5.7 - 6.4 Diabetes: >6.4 Glycemic control for adults with diabetes: <7.0 Estimated Average Glucose 146 mg/dL [facility] ACCOUNT BILL Blood BLOOD SPECIMEN / Unknown 05/13/2024 2:38 PM CDT 05/13/2024 Narrative Resulting Agency Comment Lab Testing performed at: [facility] [address] [facility] [id number] Natalie ROSALES LAB - CHEMISTRY O RDERABLES Performing Organization Address City/[facility]/ZIP Co de Phone Number [facility] ACCOUNT BILL [address] [place] [address] * PROC OPH DIAB BILAT RET SCRN WCOMP INTERP (01/02/2024 10:50 AM CDT) IDX DR SCREEN No Diabetic Retinopathy Detected: ETDRS level 20 or lower and no Diabetic Macular Edema [facility] Comment: Next Steps: Retest in 12 months IDx Submission ID: [id number] Results were produced by a system that provides an artificial intelligence (AI) interpretation A positive result indicates a high risk of diabetic retinopathy with a severity of ETDRS level 35 or higher and/or macular edema. IDx-DR diabetic retinopathy exam does not replace a comprehensive eye exam. 01/02/2024 10:5 0 AM CDT Natalie ROSALES PROCEDURE/MINOR S URGICAL ORDERABLES Performing Organization Address [facility] Co de Phone Number [facility] DR [facility] * MICROALBUMIN URINE - POINT OF CARE (AMB) (01/02/2024 10:29 AM CDT) Pathologist [facility] QC Verified Yes Yes [facility] Microalbumin 150 [facility] Creatinine POCT 100 [facility] Microalbumin/Crea tinine Ratio >300 [facility] Urine URINE / Unknown 01/02/2024 1 0:29 AM CDT Natalie Valiente APRN-TUBING TESTER LAB - POINT OF CA RE ORDERABLES Performing Organization Address City/[facility] Co de Phone Number [facility] [place] [address] [phone] * PROSTATE SPECIFIC ANTIGEN SCREEN (05/02/2023 9:56 AM CDT) Pathologist [facility] PSA 1.7 0.0 - 4.0 ng/mL [facility] ACCOUNT BILL Comment: Sarah ECLIA methodology. . According to the [employer], Serum PSA should decrease and remain at undetectable levels after radical prostatectomy. The AUA defines biochemical recurrence as an initial PSA value 0.2 ng/mL or greater followed by a subsequent confirmatory PSA value 0.2 ng/mL or greater. Values obtained with different assay methods or kits cannot be used interchangeably. Results cannot be interpreted as absolute evidence of the presence or absence of malignant disease. FASTING Blood BLOOD SPECIMEN / Unknown 05/02/2023 9:56 AM CDT 05/02/2023 Narrative Resulting Agency Comment [facility] performed at: [facility] [address] [facility] [id number] Hazel Boyer MD LAB - CHEMISTRY JIM JENKINS [facility] Organization Address City/State/ZIP Co de Phone Number [facility] ACCOUNT BILL [address] [place] [address] * ENDOSCOPY, COLON, SCREENING (08/14/2018 2:12 PM GEOTHERMAL TECHNICIAN) Report Endoscopy POC _ Patient Name: Tyrell Ritter Procedure Date: 08/14/2018 2:12 PM Date of : 1960 Admit Type: Outpatient Age: 58 Gender: Male Attending MD: Negrito Holguin MD _ Procedure: Colonoscopy Indications: Screening for colorectal malignant neoplasm, This is the patient's first colonoscopy Providers: Negrito Holguin MD (Doctor) Referring MD: Hazel Boyer MD (Referring MD) Medicines: Monitored Anesthesia Care Complications: No immediate complications. Estimated blood loss: None. _ Procedure: Pre-Anesthesia Assessment: - Prior to the procedure, a History and Physical was performed, and patient medications and allergies were reviewed. The patient is competent. The risks and benefits of the procedure and the sedation options and risks were discussed with the patient. All questions were answered and informed consent was obtained. Patient identification and proposed procedure were verified by the physician, the nurse and the lime sludge kiln operator in the procedure room. Mental Status Examination: alert and oriented. Airway Examination: normal oropharyngeal airway and neck mobility. Respiratory Examination: clear to auscultation. CV Examination: normal. Prophylactic Antibiotics: The patient does not require prophylactic antibiotics. Prior Anticoagulants: The patient has taken aspirin, last dose was 5 days prior to procedure. ASA Grade Assessment: III - A patient with severe systemic disease. After reviewing the risks and benefits, the patient was deemed in satisfactory condition to undergo the procedure. The anesthesia plan was to use monitored anesthesia care (MAC). Immediately prior to administration of medications, the patient was re-assessed for adequacy to receive sedatives. The heart rate, respiratory rate, oxygen saturations, blood pressure, adequacy of pulmonary ventilation, and response to care were monitored throughout the procedure. The physical status of the patient was re-assessed after the procedure. After I obtained informed consent, the scope was passed under direct vision. Throughout the procedure, the patient's blood pressure, pulse, and oxygen saturations were monitored continuously. The Colonoscope was introduced through the anus and advanced to the cecum, identified by appendiceal orifice and ileocecal valve. The colonoscopy was performed without difficulty. The patient tolerated the procedure well. The quality of the bowel preparation was good. Findings: The digital rectal exam was normal. Pertinent negatives include no palpable rectal lesions. Eight sessile polyps were found in the rectum and sigmoid colon. The polyps were 3 to 5 mm in size. These polyps were removed with a cold biopsy forceps. Resection and retrieval were complete. The descending colon, transverse colon, ascending colon, cecum, appendiceal orifice and ileocecal valve appeared normal. _ Impression: - Eight 3 to 5 mm polyps in the rectum and in the sigmoid colon, removed with a cold biopsy forceps. Resected and retrieved. - The descending colon, transverse colon, ascending colon, cecum, appendiceal orifice and ileocecal valve are normal. Recommendation: - Await pathology results. - Repeat colonoscopy in 3 years for surveillance if polyps are adenomas. - Return to primary care physician as previously scheduled. - Return to my office in 4 weeks. Procedure Code(s): --- Professional --- 24118, Colonoscopy, flexible; with biopsy, single or multiple --- Technical --- 81418, Colonoscopy, flexible; with biopsy, single or multiple Diagnosis Code(s): --- Professional --- Z12.11, Encounter for screening for malignant neoplasm of colon K62.1, Rectal polyp D12.5, Benign neoplasm of sigmoid colon --- Technical --- Z12.11, Encounter for screening for malignant neoplasm of colon K62.1, Rectal polyp D12.5, Benign neoplasm of sigmoid colon CPT copyright 2017 [employer]. All rights reserved. The codes documented in this report are preliminary and upon sheet catcher review may be revised to meet current compliance requirements. Dr. Negrito Holguin MD Negrito Holguin MD 08/14/2018 3:33:28 PM This report has been signed electronically. Number of Addenda: 0 Note Initiated On: 08/14/2018 2:12 PM [facility] 08/14/2018 2:12 PM GEOTHERMAL TECHNICIAN Negrito Holguin MD GI PROCEDURE ORDERA [facility] [place] [address] * HEPATITIS C ANTIBODY (05/31/2018 9:34 AM CDT) Hepatitis C Antibody Non Reactive Non Reactive [facility] ACCOUNT BILL Comment: Non Reactive - Antibodies to Hepatitis C virus (HCV) were no t detected, result does not exclude early acute HCV infection. FASTING Blood BLOOD SPECIMEN / Unknown 05/31/2018 9:34 AM CDT 05/31/2018 Narrative Resulting Agency Comment [facility] [address] [facility] [phone] Hazel Boyer MD LAB - CHEMISTRY JIM JENKINS [facility] ACCOUNT BILL [address] [place] [address] from Last 3 Months or Most Recently Relevant to Health Maintenance Advance Directives * Full Code (Latest Code Status on File) Date Activated Date Inactivated Comments 09/13/2024 1:34 PM 09/15/2024 1:49 PM * Full Code Date Activated Date Inactivated Comments 11/02/2023 4:56 PM 11/03/2023 2:33 PM * Full Code Date Activated Date Inactivated Comments 05/03/2017 9:01 PM 05/05/2017 5:28 PM * Full Code Date Activated Date Inactivated Comments 07/07/2016 4:30 PM 07/09/2016 1:40 PM Care Teams Skidway Worker Relationship Specialty [place] [address] [facility] [address] [place] [address] PCP - General 03/30/12 [place] [address] [facility] [address] [place] [address] Anesthesiology-Pain Management 06/09/14
--- OUTSIDE RECORDS SUMMARY | 2024-10-15 13:34 | XMS_ITS | Patient Health Summary ---
Author Organization [facility] Address [address] [place] [address] Care Team Providers Care Child Protection Specialist Name Role Phone Hazel Boyer MD Primary Care Provider [phone] Gordy Yancey MD Unavailable [phone] Note from [facility],non-owned Affiliates and Associated Physician Practices is amultiple site organization consisting of ambulatory clinics and hospital sitesin [place], [place], [place] and [place]. This disclosure is being madepursuant to the Care Everywhere program and may not contain all information available regarding this patient. Last updated 18.[facility] Allergies No known active allergies* Ezetimibe(Unknown) -Low Criticality,Inactive Medications * Be aware that medications may not be up to date on this document. Alwaysverify current medications with the patient. * FREESTYLE LITE STRIPS test strip(Started 09/13/2019) Use 1 strip as directed 11 refills by 09/12/2020 * simvastatin (Zocor) 80 MG tablet(Started 08/09/2023) TAKE 1 TABLET DAILY 3 refills by 08/08/2024 * furosemide (Lasix) 40 MG tablet(Started 01/23/2024) TAKE 1 TABLET DAILY 3 refills by 01/22/2025 * hydrALAZINE (Apresoline) 100 MG tablet(Started 03/28/2024) TAKE 1 TABLET THREE TIMES A DAY 5 refills by 03/28/2025 * gabapentin (Neurontin) 300 MG capsule(Started 07/15/2024) Take 1 (one) capsule by mouth 3 times daily * Multiple Vitamin (MULTIVITAMIN PO) * spironolactone (Aldactone) 25 MG tablet(Started 08/26/2024) TAKE 1 TABLET BY MOUTH DAILY 3 refills by 08/26/2025 * cloNIDine (Catapres) 0.1 MG tablet(Started 08/26/2024) TAKE 1 TABLET BY MOUTH AT BEDTIME 3 refills by 08/26/2025 * fenofibrate micronized (Lofibra) 200 MG capsule(Started 08/26/2024) TAKE 1 CAPSULE BY MOUTH DAILY 3 refills by 08/26/2025 * lisinopril (Prinivil; Zestril) 40 MG tablet(Started 08/26/2024) TAKE 1 TABLET BY MOUTH DAILY 3 refills by 08/26/2025 * carvedilol (Coreg) 12.5 MG tablet(Started 08/26/2024) TAKE 1 TABLET BY MOUTH TWICE DAILY WITH MORNING AND EVENING MEAL 3 refills by 08/26/2025 * metFORMIN (Glucophage) 500 MG tablet(Started 08/26/2024) TAKE 1 TABLET BY MOUTH 3 TIMES DAILY WITH MEALS FOR TYPE 2 DIABETES MELLITUS WITHOUT COMPLICATION, WITHOUT CHIEF UNIT FORESTER CURRENT USE OF INSULIN 3 refills by 08/26/2025 * acetaminophen (Tylenol) 500 MG tablet(Started 09/13/2024) Take 2 (two) tablets by mouth 3 times daily Maximum allowable Acetaminophen amount = 4 Grams (4000 mg) / 24 hours. Take every three times a day for the first 10 days when home. After 10 days, take as needed. * aspirin (Aspirin) 81 MG chew tablet(Started 09/14/2024) Chew and swallow 1 (one) tablet by mouth 2 times daily for 42 days Take twice daily until 10/25 for blood clot prevention. After 10/25, okay to resume once daily. * omeprazole (PriLOSEC) 20 MG capsule(Started 09/14/2024) Take 1 (one) capsule by mouth once daily for 42 days * oxyCODONE, immediate release, (Roxicodone) 10 MG tablet(Started 09/30/2024) Take 0.5 (one-half) tablet to 1 (one) tablet by mouth every 4 hours as needed for Pain (PAIN) Ended Medications* oxyCODONE, immediate release, (Roxicodone) 10 MG tablet (Started 09/14/2024)(Discontinued) Take 0.5 (one-half) tablet to 1 (one) tablet by mouth every 4 hours as needed for Pain (PAIN) Active Problems Problem Noted Date Diagnosed Date Hip arthritis 09/13/2024 Pain management contract agreement 04/28/2023 Opioid use 03/28/2022 Basal cell carcinoma (BCC) of skin of face 03/30 BMS to proximal LAD in 2001, occluded RCA 2019 Screening PSA (prostate specific antigen) 2017 Essential hypertension 07/14/2015 Idiopathic gout 07/14/2015 Coronary artery disease 05/15/2015 Diabetes mellitus type 2, uncomplicated 05/15/20 15 Spinal stenosis 05/20/2014 Ischemic cardiomyopathy, mild 04/22/2013 Mixed hyperlipidemia 04/22/2013 Erectile dysfunction 07/31/2012 History of fall 07/31/2012 Back pain 06/09/2011 Resolved Problems Problem Noted Date Diagnosed Date Resolved Date Spinal stenosis of lumbar re gion with neurogenic claudication 11/02/2023 07/23/2024 Accident May 1984 03/28/202209/05 Sprain of medial collateral ligament of right [...] RCA occlusion 04/22/201305/15 Proximal LAD stent in 2002, RCA occlusion 03/15/2012 05/15/2015 Ischemic cardiomyopathy, mild 03/15/2012 05/15/2014 HTN, severe 03/15/2012 07/14/2015 Diabetes mellitus, type 2 03/15/2012 Mixed hyperlipidemia 03/15/2012 015 Coronary atherosclerosis of [place] coronary artery 03/13/2012 04/22/2013 HTN 03/13/2012 05/15/2015 Pure hypercholesterolemia 03/13/2012 Pure hyperglyceridemia 03/13/201204/22 Nephrolithiasis 03/13/2012 05/31/2018 Gout 03/13/2012 07/14/2015 Immunizations * INFLUENZA VACCINE, TRIV. (AFLURIA, FLUZONE TRIVALENT; 6MO+) (IIV3)(Given 07/07/2014) * Covid Moderna primary monovalent 12+ yr 0.5mL(Given 06/28/2021, 11/03/2020, 10/01/2020) * INFLUENZA VACCINE(Given 05/29/2018, 06/16/2017, 07/07/2014, 07/02/2013) * INFLUENZA VACCINE, ADJUVANTED, TRIV. (FLUAD TRIVALENT; 65Y+) (AIIV3)(Given 06/18/2024) * INFLUENZA VACCINE, CELL CULTURE, QUADR. (FLUCELVAX QUADRIVALENT; 6MO+) (CCIIV4)(Given 06/30/2022, 06/15/2017) * INFLUENZA VACCINE, QUADR. (FLUZONE; FLULAVAL; FLUARIX; AFLURIA QUADRIVALENT; 6MO+), 0.5 ML (IIV4)(Given 06/13/2021, 06/11/2020, 05/27/2019, 04/17/2018, 07/08/2016, 07/14/2015) * Influenza Pf Intradermal (ADULT)(Given 09/27/2012) * MODERNA SARS-COV-2 COVID-19 VACCINE 0.25ML(Given 03/13/2022) * PNEUMOCOCCAL PCV20 CONJ VAC IM(Given 03/28/2022) * PNEUMOCOCCAL PPSV23(Given 09/15/2020) * TDAP (7yrs+)(Given 05/27/2019) * Zoster Hzv Vacc Recombinant Inj Im(Given 03/13/2019, 12/24/2018) Social History Tobacco Use Types Packs/Day Years [...] Recorded Patient Health Questionnaire-2 Score 0 09/26/2024 [facility] [place] [facility] - Occupational Stress [...] any time in the past 12 m [facility], were you homeless or living in a care home (including now)? 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 Gender Identity Not on file Sexual Orientation Not on file Last Filed Vital Signs Vital Sign Reading Time Taken Comments Blood Pressure 177/62 09/15/2024 9:42 AM FINISHING ROOM OPERATOR sit ting EOB Pulse 81 09/15/2024 9:42 AM FINISHING ROOM OPERATOR Temperature 36.7 C (98 F) 09/15/2024 7:39 AM FINISHING ROOM OPERATOR Respiratory Rate 18 09/15/2024 7:39 AM FINISHING ROOM OPERATOR Oxygen Saturation 94% 09/15/2024 9:42 AM FINISHING ROOM OPERATOR Inhaled Oxygen Concentration - - Weight 98 kg (216 lb) 09/13/2024 7:14 AM FINISHING ROOM OPERATOR Height 177.8 cm (5' 10 ) 09/13/2024 7:14 AM FINISHING ROOM OPERATOR Body Mass Index 30.99 09/13/2024 7:14 AM FINISHING ROOM OPERATOR Medical Devices Implanted Type Area [employer] Device Identifier Shelf Expiration Date Model / Serial / Lot Ogden Sut Swivelock Tenodesis 7mm Bcmps Implanted:Qty: 1 on 05/03/2017 by Codey Ireland MD at [facility] Right: Shoulder [employer] 09/03/2018 [id number] / / [id number] Shell Actb 54mm Hip 4 Hl Clr Cd [place] Implanted:Qty: 1 on 09/13/2024 by Abdiaziz Flores IV, MD at [facility] Left: Hip [employer] 06/03/2034 [id number] / / [id number] Acetabular System Longevity Highly Crosslinked Polyethylene Liner +5mm Offset Implanted:Qty: 1 on 09/13/2024 by Abdiaziz Flores IV, MD at [facility] Left: Hip [employer] 10/18/2028 [id number] / / [id number] Head Fem +4mm / Tpr 36mm Hip Oxnm Implanted:Qty: 1 on 09/13/2024 by Abdiaziz Flores IV, MD at [facility] Left: Hip [employer] 05/25/2034 [id number] / / [id number] Stem Fem 143mm Hip 126d 4 08/17 Lat Ofst Implanted:Qty: 1 on 09/13/2024 by Abdiaziz Flores IV, MD at [facility] Left: Hip [employer] 02/18/2031 [id number] / / [id number] Explanted Type Area Multi Mission Helicopter Aircrewman Device Identifier Shelf Expiration Date Model / Serial / Lot Pin Hlf 255mm 5mm Jtx Lng Orth Ss 45mm Explanted:Qty: 1 on 09/13/2024 at [facility] Left: Hip [employer] [id number] / / Procedures * XR HIP LEFT 2VW OR MORE(Performed 10/03/2024) Performed for S/P total left hip arthroplasty * GLUCOSE - POINT OF CARE(Performed 09/15/2024) * GLUCOSE - POINT OF CARE(Performed 09/15/2024) * BASIC METABOLIC PANEL (CALCIUM TOTAL)(Performed 09/15/2024) * GLUCOSE - POINT OF CARE(Performed 09/14/2024) * GLUCOSE - POINT OF CARE(Performed 09/14/2024) * GLUCOSE - POINT OF CARE(Performed 09/14/2024) * GLUCOSE - POINT OF CARE(Performed 09/14/2024) * BASIC METABOLIC PANEL (CALCIUM TOTAL)(Performed 09/14/2024) Performed for Stage 3 chronic kidney disease, unspecified whether stage 3a or 3b CKD (HCC) * GLUCOSE - POINT OF CARE(Performed 09/13/2024) * GLUCOSE - POINT OF CARE(Performed 09/13/2024) * FL LOREN SURGERY(Performed 09/13/2024) Performed for Hip arthritis * NEURAXIAL BLOCK(Performed 09/13/2024) * VT TOTAL HIP REPLACEMENT(Performed 09/13/2024) * BASIC METABOLIC PANEL (CALCIUM TOTAL)(Performed 09/13/2024) Performed for Preop testing * FRUCTOSAMINE(Performed 07/23/2024) Performed for Preop testing * COMPREHENSIVE METABOLIC PANEL(Performed 07/23/2024) Performed for Preop testing * EKG 12-LEAD(Performed 07/23/2024) Performed for Preop testing * US RETROPERITONEAL COMPLETE(Performed 05/22/2024) Performed for Abnormal kidney function * COMPREHENSIVE METABOLIC PANEL(Performed 05/21/2024) Performed for Abnormal kidney function * CBC W AUTO DIFFERENTIAL(Performed 05/21/2024) Performed for Abnormal CBC * PT PTT PANEL(Performed 05/13/2024) Performed for Bruising * IRON + TIBC PANEL(Performed 05/13/2024) Performed for Bruising * HEMOGLOBIN A1C W EAG(Performed 05/13/2024) Performed for Type 2 diabetes mellitus without complication, without long-term current use of insulin (HCC) * COMPREHENSIVE METABOLIC PANEL(Performed 05/13/2024) Performed for Bruising * CBC W AUTO DIFFERENTIAL(Performed 05/13/2024) Performed for Bruising, Abnormal CBC * MRI LUMBAR SPINE WWO CONTRAST(Performed 02/16/2024) Performed for Lumbar radiculitis, Lumbar foraminal stenosis, HNP (herniated nucleus pulposus), lumbar * PAIN MANAGEMENT PROCEDURE TIME(Performed 02/05/2024) Performed for Left hip pain * XR HIP LEFT 2VW OR MORE(Performed 01/25/2024) Performed for Primary osteoarthritis of left hip * CBC W AUTO DIFFERENTIAL(Performed 01/09/2024) Performed for Anemia, unspecified type * IRON + TIBC PANEL(Performed 01/09/2024) Performed for Anemia, unspecified type * LIPID PROFILE W TCHOL/HDL(Performed 01/09/2024) Performed for Mixed hyperlipidemia * URIC ACID BLOOD(Performed 01/09/2024) Performed for Idiopathic gout, unspecified chronicity, unspecified site * COMPREHENSIVE METABOLIC PANEL(Performed 01/09/2024) Performed for Essential hypertension, Mixed hyperlipidemia * PROC OPH DIAB BILAT RET SCRN WCOMP INTERP(Performed 01/02/2024) Performed for Type 2 diabetes mellitus without complication, without long-term current use of insulin (HCC) * HEMOGLOBIN A1C - POINT OF CARE (AMB)(Performed 01/02/2024) Performed for Type 2 diabetes mellitus without complication, without long-term current use of insulin (HCC) * MICROALBUMIN URINE - POINT OF CARE (AMB)(Performed 01/02/2024) Performed for Type 2 diabetes mellitus without complication, without long-term current use of insulin (HCC) * CARDIAC RHYTHM STRIP ORDER(Performed 11/07/2023) * APHERESIS/TRANSFUSION ORDER(Performed 11/07/2023) * GLUCOSE - POINT OF CARE(Performed 11/03/2023) * OT EVAL AND TREAT(Performed 11/03/2023) * GLUCOSE - POINT OF CARE(Performed 11/03/2023) * GLUCOSE - POINT OF CARE(Performed 11/03/2023) * GLUCOSE - POINT OF CARE(Performed 11/02/2023) * GLUCOSE - POINT OF CARE(Performed 11/02/2023) * GLUCOSE - POINT OF CARE(Performed 11/02/2023) * PT EVAL AND TREAT(Performed 11/02/2023) * GLUCOSE - POINT OF CARE(Performed 11/02/2023) * XR LUMBAR SPINE IN OR 1VW(Performed 11/02/2023) Performed for Low back pain, unspecified back pain laterality, unspecified chronicity, unspecified whether sciatica present * ENDOTRACHEAL TUBE NOTE(Performed 11/02/2023) * VT LAMINEC/FACETECT/FORAMIN,LUMBAR(Performed 11/02/2023) * BLOOD TYPE VERIFICATION(Performed 11/02/2023) * TYPE + SCREEN PANEL(Performed 11/02/2023) Performed for Pre-op evaluation * BASIC METABOLIC PANEL (CALCIUM TOTAL)(Performed 11/02/2023) Performed for Pre-op evaluation * ECHO COMPLETE(Performed 10/20/2023) Performed for Ischemic cardiomyopathy, mild, BMS to proximal LAD in 2001, occluded RCA * EKG 12-LEAD(Performed 10/12/2023) Performed for Pre-op evaluation * HEMOGLOBIN A1C(Performed 10/12/2023) Performed for Pre-op evaluation * CBC W AUTO DIFFERENTIAL(Performed 10/12/2023) Performed for Pre-op evaluation * COMPREHENSIVE METABOLIC PANEL(Performed 10/12/2023) Performed for Pre-op evaluation * PAIN MANAGEMENT PROCEDURE TIME(Performed 08/03/2023) Performed for Lumbar radiculopathy * MRI LUMBAR SPINE WO CONTRAST(Performed 07/21/2023) Performed for Spinal stenosis of lumbar region, unspecified whether neurogenic claudication present, HNP (herniated nucleus pulposus), lumbar, Lumbar foraminal stenosis, Lumbosacral radiculitis * PAIN MANAGEMENT PROCEDURE TIME(Performed 05/11/2023) Performed for Lumbar radiculopathy * PROSTATE SPECIFIC ANTIGEN SCREEN(Performed 05/02/2023) Performed for Screening PSA (prostate specific antigen) * CBC W AUTO DIFFERENTIAL(Performed 05/02/2023) Performed for Type 2 diabetes mellitus without complication, without long-term current use of insulin ([facility]), Ischemic cardiomyopathy, mild * LIPID PROFILE W TCHOL/HDL(Performed 05/02/2023) Performed for Mixed hyperlipidemia * COMPREHENSIVE METABOLIC PANEL(Performed 05/02/2023) Performed for Type 2 diabetes mellitus without complication, without long-term current use of insulin (HCC), Mixed hyperlipidemia, Coronary artery disease involving [place] heart without angina pectoris, unspecified vessel or lesion type, Ischemic cardiomyopathy, mild, Essential hypertension, Chronic low back pain with sciatica, sciatica laterality unspecified, unspecified back pain laterality * HEMOGLOBIN A1C - POINT OF CARE (AMB)(Performed 04/28/2023) Performed for Type 2 diabetes mellitus without complication, without long-term current use of insulin ([facility]) * SCAN ONLY HIS OPIOID MED AGREEMENT(Performed 04/28/2023) * PAIN MANAGEMENT PROCEDURE TIME(Performed 12/27/2022) Performed for Lumbar radiculopathy * IRON + TRANSFERRIN PANEL(Performed 10/27/2022) Performed for Anemia, unspecified type * CBC W AUTO DIFFERENTIAL(Performed 10/27/2022) Performed for Anemia, unspecified type * LIPID PROFILE W TCHOL/HDL(Performed 10/27/2022) Performed for Type 2 diabetes mellitus without complication, without long-term current use of insulin ([facility]), Mixed hyperlipidemia * HEMOGLOBIN A1C(Performed 10/27/2022) Performed for Type 2 diabetes mellitus without complication, without long-term current use of insulin ([facility]), Mixed hyperlipidemia * COMPREHENSIVE METABOLIC PANEL(Performed 10/27/2022) Performed for Type 2 diabetes mellitus without complication, without long-term current use of insulin (HCC), Mixed hyperlipidemia * LIPID PROFILE W TCHOL/HDL(Performed 04/07/2022) Performed for Mixed hyperlipidemia * CBC W AUTO DIFFERENTIAL(Performed 04/07/2022) Performed for Type 2 diabetes mellitus without complication, without long-term current use of insulin ([facility]) * COMPREHENSIVE METABOLIC PANEL(Performed 04/07/2022) Performed for Mixed hyperlipidemia, Ischemic cardiomyopathy, mild, Type 2 diabetes mellitus withoutcomplication, without long-term current use of insulin ([facility]) * PROSTATE SPECIFIC ANTIGEN SCREEN(Performed 04/07/2022) Performed for Prostate cancer screening * HEMOGLOBIN A1C(Performed 04/07/2022) Performed for Type 2 diabetes mellitus without complication, without long-term current use of insulin ([facility]), Chronic low back pain with sciatica, sciatica laterality unspecified, unspecified back pain laterality * SCAN ONLY HIS OPIOID MED AGREEMENT(Performed 03/28/2022) * PAIN MANAGEMENT PROCEDURE TIME(Performed 01/27/2022) Performed for Lumbar radiculopathy * XR LUMBAR SPINE 4VW OR MORE(Performed 01/25/2022) Performed for Lumbar foraminal stenosis, Spinal stenosis of lumbar region, unspecified whether neurogenic claudication present, Lumbar radiculitis * EYE EXAM(Performed 10/08/2021) * MRI BRAIN WO CONTRAST(Performed 07/16/2021) Performed for Type 2 diabetes mellitus without complication, without long-term current use of insulin ([facility]), Dizziness, Slurred speech, Facial droop * US CAROTID COMPLETE DOPPLER(Performed 07/16/2021) Performed for Type 2 diabetes mellitus without complication, without long-term current use of insulin ([facility]), Dizziness, Slurred speech, Facial droop * HEMOGLOBIN A1C - POINT OF CARE (AMB)(Performed 07/15/2021) Performed for Type 2 diabetes mellitus without complication, without long-term current use of insulin ([facility]) * EKG 12-LEAD(Performed 07/15/2021) Performed for Type 2 diabetes mellitus without complication, without long-term current use of insulin ([facility]), Dizziness, Slurred speech, Facial droop * VITAMIN D 25-HYDROXY(Performed 04/01/2021) Performed for Vitamin D deficiency * LIPID PROFILE W TCHOL/HDL(Performed 04/01/2021) Performed for Mixed hyperlipidemia, Type 2 diabetes mellitus without complication, without long-term current use of insulin ([facility]), Coronary artery disease involving [place] heart without angina pectoris, unspecified vessel or lesion type * URIC ACID BLOOD(Performed 04/01/2021) Performed for Idiopathic gout, unspecified chronicity, unspecified site * CBC W AUTO DIFFERENTIAL(Performed 04/01/2021) Performed for Type 2 diabetes mellitus without complication, without long-term current use of insulin ([facility]), Coronary artery disease involving [place] heart without angina pectoris, unspecified vesselor lesion type * COMPREHENSIVE METABOLIC PANEL(Performed 04/01/2021) Performed for Mixed hyperlipidemia, Type 2 diabetes mellitus without complication, without long-term current use of insulin ([facility]), Coronary artery disease involving [place] heart without angina pectoris, unspecified vessel or lesion type, Essential hypertension * PROSTATE SPECIFIC ANTIGEN SCREEN(Performed 04/01/2021) Performed for Prostate cancer screening * HEMOGLOBIN A1C(Performed 04/01/2021) Performed for Type 2 diabetes mellitus without complication, without long-term current use of insulin ([facility]) * PATHOLOGY/CYTOLOGY REPORT ORDER(Performed 02/09/2021) * VITAMIN D 25-HYDROXY(Performed 09/30/2020) Performed for Myalgia * URIC ACID BLOOD(Performed 09/30/2020) Performed for Idiopathic gout, unspecified chronicity, unspecified site * LIPID PROFILE W TCHOL/HDL(Performed 09/30/2020) Performed for Mixed hyperlipidemia * HEMOGLOBIN A1C(Performed 09/30/2020) Performed for Type 2 diabetes mellitus without complication, without long-term current use of insulin ([facility]) * CBC W AUTO DIFFERENTIAL(Performed 09/30/2020) Performed for Type 2 diabetes mellitus without complication, without long-term current use of insulin ([facility]), Coronary artery disease involving [place] heart without angina pectoris, unspecified vesselor lesion type * COMPREHENSIVE METABOLIC PANEL(Performed 09/30/2020) Performed for Essential hypertension, Type 2 diabetes mellitus without complication, without long-term current use of insulin ([facility]), Idiopathic gout, unspecified chronicity, unspecified site, Coronary artery disease involving [place] heart without angina pectoris, unspecified vessel or lesion type, I schemic cardiomyopathy, mild * LIPID PROFILE W TCHOL/HDL(Performed 03/26/2020) Performed for Coronary artery disease involving [place] heart without angina pectoris, unspecified vessel or lesion type * HEMOGLOBIN A1C(Performed 03/26/2020) Performed for Type 2 diabetes mellitus without complication, without long-term current use of insulin ([facility]) * CBC W AUTO DIFFERENTIAL(Performed 03/26/2020) Performed for Ischemic cardiomyopathy, mild * COMPREHENSIVE METABOLIC PANEL(Performed 03/26/2020) Performed for Type 2 diabetes mellitus without complication, without long-term current use of insulin ([facility]), Mixed hyperlipidemia, Essential hypertension * PROSTATE SPECIFIC ANTIGEN SCREEN(Performed 03/26/2020) Performed for Screening PSA (prostate specific antigen) * URIC ACID BLOOD(Performed 09/24/2019) Performed for Idiopathic gout, unspecified chronicity, unspecified site * HEMOGLOBIN A1C(Performed 09/24/2019) Performed for Type 2 diabetes mellitus without complication, without long-term current use of insulin ([facility]) * LIPID PROFILE W TCHOL/HDL(Performed 09/24/2019) Performed for Type 2 diabetes mellitus without complication, without long-term current use of insulin ([facility]) * CBC W AUTO DIFFERENTIAL(Performed 09/24/2019) Performed for Type 2 diabetes mellitus without complication, without long-term current use of insulin ([facility]) * COMPREHENSIVE METABOLIC PANEL(Performed 09/24/2019) Performed for Type 2 diabetes mellitus without complication, without long-term current use of insulin ([facility]), Essential hypertension, Spinal stenosis, unspecified spinal region * URIC ACID BLOOD(Performed 03/21/2019) Performed for Idiopathic gout, unspecified chronicity, unspecified site * HEMOGLOBIN A1C(Performed 03/21/2019) Performed for Type 2 diabetes mellitus without complication, without long-term current use of insulin ([facility]) * TSH(Performed 03/21/2019) Performed for Abnormal weight loss * LIPID PROFILE W TCHOL/HDL(Performed 03/21/2019) Performed for Abnormal weight loss, Mixed hyperlipidemia, Type 2 diabetes mellitus without complication, without long-term current use of insulin ([facility]) * CBC W AUTO DIFFERENTIAL(Performed 03/21/2019) Performed for Abnormal weight loss * COMPREHENSIVE METABOLIC PANEL(Performed 03/21/2019) Performed for Abnormal weight loss, Idiopathic gout, unspecified chronicity, unspecified site, Type2 diabetes mellitus without complication, without long- term current use of insulin ([facility]) * PAIN MANAGEMENT PROCEDURE TIME(Performed 01/16/2019) Performed for Facet arthritis of lumbar region * MRI LUMBAR SPINE WO CONTRAST(Performed 01/14/2019) Performed for HNP (herniated nucleus pulposus), lumbar, Spinal stenosis of lumbar region, unspecified whether neurogenic claudication present, Lumbosacral radiculitis * XR LUMBAR SPINE 4VW OR MORE(Performed 01/07/2019) Performed for HNP (herniated nucleus pulposus), lumbar, Spinal stenosis of lumbar region, unspecified whether neurogenic claudication present, Lumbosacral radiculitis * T4 FREE(Performed 11/29/2018) Performed for Abnormal weight loss * TSH(Performed 11/29/2018) Performed for Abnormal weight loss * CT CHEST ABDOMEN WO CONTRAST(Performed 11/01/2018) Performed for Abnormal weight loss, Loss of appetite * XR KNEE RIGHT 3VW(Performed 10/19/2018) Performed for Acute pain of right knee * PROSTATE SPECIFIC ANTIGEN SCREEN(Performed 10/18/2018) Performed for Screening PSA (prostate specific antigen) * NM GASTRIC EMPTYING(Performed 09/20/2018) Performed for Abnormal weight loss, Anorexia * HEMOGLOBIN A1C - POINT OF CARE (AMB)(Performed 08/16/2018) Performed for Type 2 diabetes mellitus without complication, without long-term current use of insulin (HCC) * HELICOBACTER PYLORI UREASE (STL)(Performed 08/14/2018) Performed for Diagnosis unknown * PATHOLOGY TISSUE EXAM (STL)(Performed 08/14/2018) Performed for Diagnosis unknown * EGD(Performed 08/14/2018) * COLONOSCOPY SCREEN(Performed 08/14/2018) * ESOPHAGOGASTRODUODENOSCOPY (EGD) DIAGNOSTIC(Performed 08/14/2018) * ENDOSCOPY, COLON, SCREENING(Performed 08/14/2018) Performed for Screening for colorectal cancer * HEPATITIS C ANTIBODY(Performed 05/31/2018) Performed for Encounter for hepatitis C screening test for low risk patient * LIPID PROFILE W TCHOL/HDL(Performed 05/31/2018) Performed for Mixed hyperlipidemia * HEMOGLOBIN A1C(Performed 05/31/2018) Performed for Type 2 diabetes mellitus without complication, without long-term current use of insulin (HCC) * COMPREHENSIVE METABOLIC PANEL(Performed 05/31/2018) Performed for Type 2 diabetes mellitus without complication, without long-term current use of insulin (HCC), Mixed hyperlipidemia * MICROALB/CREAT RATIO URINE RANDOM PANEL(Performed 11/27/2017) Performed for Type 2 diabetes mellitus without complication, without long-term current use of insulin (HCC) * HEMOGLOBIN A1C(Performed 11/27/2017) Performed for Type 2 diabetes mellitus without complication, without long-term current use of insulin (HCC) * URIC ACID BLOOD(Performed 11/27/2017) Performed for Idiopathic gout, unspecified chronicity, unspecified site * COMPREHENSIVE METABOLIC PANEL(Performed 11/27/2017) Performed for Type 2 diabetes mellitus without complication, without long-term current use of insulin (HCC), Essential hypertension * URIC ACID BLOOD(Performed 07/19/2017) Performed for Idiopathic gout, unspecified chronicity, unspecified site * IRON + TIBC PANEL(Performed 07/19/2017) Performed for Pale skin * PROSTATE SPECIFIC ANTIGEN SCREEN(Performed 07/19/2017) Performed for Screening PSA (prostate specific antigen) * CBC W AUTO DIFFERENTIAL(Performed 07/19/2017) Performed for Pale skin * HEMOGLOBIN A1C - POINT OF CARE (AMB)(Performed 07/18/2017) Performed for Type 2 diabetes mellitus without complication, without long-term current use of insulin (HCC) * XR SHOULDER RIGHT 2VW OR MORE(Performed 06/13/2017) Performed for History of arthroscopy of right shoulder * XR CLAVICLE RIGHT 2VW(Performed 05/16/2017) Performed for S/P arthroscopy of shoulder - W/SHAVING OF LABRUM, OPEN BICEPS TENODESIS & OPEN EXCISION OF DISTAL CLAVICLE & ACROMIOPLASTY * IMAGING/RADIOLOGY/XRAY RESULTS ORDER(Performed 05/10/2017) * CARDIAC RHYTHM STRIP ORDER(Performed 05/09/2017) * GLUCOSE - POINT OF CARE(Performed 05/05/2017) * GLUCOSE - POINT OF CARE(Performed 05/05/2017) * GLUCOSE - POINT OF CARE(Performed 05/04/2017) * GLUCOSE - POINT OF CARE(Performed 05/04/2017) * ECHOCARDIOGRAM 2D WITH DOPPLER(Performed 05/04/2017) Performed for Hypoxia * GLUCOSE - POINT OF CARE(Performed 05/04/2017) * CT ANGIO CHEST PULM EMBOLISM(Performed 05/03/2017) Performed for Hypoxia * GLUCOSE - POINT OF CARE(Performed 05/03/2017) * XR CHEST 1VW PORTABLE(Performed 05/03/2017) Performed for Hypoxia * D-DIMER(Performed 05/03/2017) * COMPREHENSIVE METABOLIC PANEL(Performed 05/03/2017) * CBC W AUTO DIFFERENTIAL(Performed 05/03/2017) * GLUCOSE - POINT OF CARE(Performed 05/03/2017) * ENDOTRACHEAL TUBE NOTE(Performed 05/03/2017) * PERIPHERAL BLOCK(Performed 05/03/2017) * ARTHROSCOPY SHOULDER(Performed 05/03/2017) * GLUCOSE - POINT OF CARE(Performed 05/03/2017) * URIC ACID BLOOD(Performed 04/24/2017) Performed for Essential hypertension, Idiopathic gout, unspecified chronicity, unspecified site * VITAMIN D 25-HYDROXY(Performed 04/24/2017) Performed for Mixed hyperlipidemia, Myalgia * LIPID PROFILE W TCHOL/HDL(Performed 04/24/2017) Performed for Mixed hyperlipidemia * CBC W AUTO DIFFERENTIAL(Performed 04/24/2017) Performed for Essential hypertension, Mixed hyperlipidemia * COMPREHENSIVE METABOLIC PANEL(Performed 04/24/2017) Performed for Essential hypertension, Mixed hyperlipidemia * NM MYOCARD PERF REST STRESS(Performed 04/20/2017) Performed for Ischemic cardiomyopathy * STRESS TEST LEXISCAN (NUCLEAR)(Performed 04/20/2017) Performed for Ischemic cardiomyopathy, mild * HEMOGLOBIN A1C - POINT OF CARE (AMB)(Performed 04/17/2017) Performed for Controlled type 2 diabetes mellitus without complication, unspecified senior care insulin use status * MRI SHOULDER RIGHT WO CONTRAST(Performed 04/06/2017) Performed for Pain of right shoulder joint on movement, Right shoulder pain, unspecified chronicity, Injury of right shoulder, initial encounter, History of shoulder surgery, Limited joint range of motion (ROM) * XR SHOULDER RIGHT 2VW OR MORE(Performed 03/14/2017) Performed for Right shoulder pain, unspecified chronicity * CARDIAC RHYTHM STRIP ORDER(Performed 08/18/2016) * IP CONSULT TO CARDIOLOGY(Performed 08/17/2016) * GLUCOSE - POINT OF CARE(Performed 08/17/2016) * GLUCOSE - POINT OF CARE(Performed 08/17/2016) * GLUCOSE - POINT OF CARE(Performed 08/17/2016) * TROPONIN I(Performed 08/16/2016) * TSH(Performed 08/16/2016) * PHOSPHORUS BLOOD(Performed 08/16/2016) * MAGNESIUM BLOOD(Performed 08/16/2016) * CBC W AUTO DIFFERENTIAL(Performed 08/16/2016) * BASIC METABOLIC PANEL (CALCIUM TOTAL)(Performed 08/16/2016) * GLUCOSE - POINT OF CARE(Performed 08/16/2016) * XR CHEST 1VW PORTABLE(Performed 08/16/2016) Performed for Cough * PATHOLOGY TISSUE EXAM (STL)(Performed 08/16/2016) Performed for Diagnosis unknown * LAPAROSCOPIC CHOLECYSTECTOMY(Performed 08/16/2016) * GLUCOSE - POINT OF CARE(Performed 08/16/2016) * NM HEPATOBILIARY W EF(Performed 07/19/2016) Performed for Abdominal pain, generalized * CARDIAC RHYTHM STRIP ORDER(Performed 07/13/2016) * PATHOLOGY TISSUE EXAM (STL)(Performed 07/11/2016) Performed for Diagnosis unknown * HELICOBACTER PYLORI UREASE (STL)(Performed 07/11/2016) Performed for Diagnosis unknown * ESOPHAGOGASTRODUODENOSCOPY (EGD) DIAGNOSTIC(Performed 07/11/2016) * EGD(Performed 07/11/2016) * ENDOSCOPY, COLON, SCREENING(Performed 07/11/2016) * GLUCOSE - POINT OF CARE(Performed 07/09/2016) * CBC W AUTO DIFFERENTIAL(Performed 07/09/2016) * CARDIAC EKG ORDER(Performed 07/08/2016) * GLUCOSE - POINT OF CARE(Performed 07/08/2016) * CBC W AUTO DIFFERENTIAL(Performed 07/08/2016) * GLUCOSE - POINT OF CARE(Performed 07/08/2016) * US ABDOMEN LIMITED(Performed 07/08/2016) Performed for Abdominal pain, epigastric, Troponin I above reference range, Atypical chest pain, Hypertensive urgency, Epigastric pain, Nephrolithiasis, Ischemic cardiomyopathy, mild, Mixed hyperlipidemia, BMS to proximal LAD in 2001, occluded RCA * URINE MICROSCOPIC ONLY REFLEX TO CULTURE(Performed 07/08/2016) * URINALYSIS REFLEX MICROSCOPIC REFLEX CULTURE(Performed 07/08/2016) * GLUCOSE - POINT OF CARE(Performed 07/08/2016) * ECHOCARDIOGRAM 2D WITH DOPPLER(Performed 07/08/2016) Performed for Troponin I above reference range * GLUCOSE - POINT OF CARE(Performed 07/08/2016) * HEMOGLOBIN A1C(Performed 07/08/2016) * GLUCOSE - POINT OF CARE(Performed 07/07/2016) * ED CRITICAL CARE(Performed 07/07/2016) Performed for Troponin I above reference range, Hypertensive urgency * TROPONIN I(Performed 07/07/2016) * GLUCOSE - POINT OF CARE(Performed 07/07/2016) * TROPONIN I(Performed 07/07/2016) * CT ANGIO AORTA FOR DISSECTION(Performed 07/07/2016) Performed for Troponin I above reference range * XR CHEST 1VW PORTABLE(Performed 07/07/2016) Performed for Abdominal pain, epigastric * CT RENAL STONE(Performed 07/07/2016) * TROPONIN I(Performed 07/07/2016) * LIPASE BLOOD(Performed 07/07/2016) * COMPREHENSIVE METABOLIC PANEL(Performed 07/07/2016) * CBC W AUTO DIFFERENTIAL(Performed 07/07/2016) * EKG 12-LEAD(Performed 07/07/2016) Performed for Abdominal pain, epigastric * PAIN MANAGEMENT PROCEDURE TIME(Performed 01/29/2015) Performed for Spinal stenosis, lumbar region, without neurogenic claudication * PAIN MANAGEMENT PROCEDURE TIME(Performed 01/14/2015) Performed for Spinal stenosis, lumbar region, without neurogenic claudication * HEMOGLOBIN A1C - POINT OF CARE (AMB)(Performed 07/07/2014) Performed for Diabetes mellitus, type 2 (HCC) * PAIN MANAGEMENT PROCEDURE TIME(Performed 07/07/2014) Performed for Thoracic or lumbosacral neuritis or radiculitis, unspecified * URINALYSIS REFLEX TO MICROSCOPIC NO CULTURE(Performed 06/17/2014) Performed for HTN, severe * LIPID PROFILE W LDL/HDL RATIO(Performed 06/17/2014) * COMPREHENSIVE METABOLIC PANEL(Performed 06/17/2014) Performed for HTN, severe * CBC W AUTO DIFFERENTIAL(Performed 06/17/2014) Performed for HTN, severe * PAIN MANAGEMENT PROCEDURE TIME(Performed 06/16/2014) Performed for Thoracic or lumbosacral neuritis or radiculitis, unspecified * AMB REFERRAL TO NEUROSURGERY(Performed 06/07/2014) * MRI LUMBAR SPINE WO CONTRAST(Performed 05/13/2014) Performed for Low back pain * HEMOGLOBIN A1C(Performed 05/12/2014) Performed for Diabetes mellitus, type 2 (HCC) * URINALYSIS REFLEX TO MICROSCOPIC NO CULTURE(Performed 05/02/2014) Performed for Acute low back pain, HTN, severe * COMPREHENSIVE METABOLIC PANEL(Performed 05/02/2014) Performed for Diabetes mellitus, type 2 (HCC) * XR LUMBAR SPINE 2 OR 3VW(Performed 05/02/2014) Performed for Acute low back pain * CARDIAC STRESS TEST ORDER(Performed 01/17/2014) * NM MYOCARD PERF REST STRESS(Performed 01/08/2014) Performed for Ischemic cardiomyopathy, mild, Proximal LAD stent in 2001, RCA occlusion * LIPID PROFILE(Performed 01/06/2014) Performed for Mixed hyperlipidemia * VITAMIN D 25-HYDROXY(Performed 01/06/2014) Performed for Heart palpitations, Insomnia * URINALYSIS REFLEX TO MICROSCOPIC NO CULTURE(Performed 01/06/2014) Performed for Back pain * MICROALB/CREAT RATIO URINE RANDOM PANEL(Performed 01/06/2014) Performed for Diabetes mellitus, type 2 (HCC) * TSH(Performed 01/06/2014) Performed for Heart palpitations * COMPREHENSIVE METABOLIC PANEL(Performed 01/06/2014) Performed for Heart palpitations, HTN, Edema * CBC W AUTO DIFFERENTIAL(Performed 01/06/2014) Performed for Heart palpitations, Diabetes mellitus, type 2 (HCC) * HEMOGLOBIN A1C - POINT OF CARE (AMB)(Performed 01/06/2014) Performed for Diabetes mellitus, type 2 (HCC) * EKG 12-LEAD(Performed 01/06/2014) Performed for Heart palpitations * HEMOGLOBIN A1C - POINT OF CARE (AMB)(Performed 06/06/2013) Performed for Diabetes mellitus type II * HEMOGLOBIN A1C - POINT OF CARE (AMB)(Performed 01/01/2013) Performed for Diabetes mellitus type II * HEMOGLOBIN A1C(Performed 11/01/2012) * CBC W AUTO DIFFERENTIAL(Performed 11/01/2012) * COMPREHENSIVE METABOLIC PANEL(Performed 11/01/2012) * MICROALB/CREAT RATIO URINE RANDOM PANEL(Performed 11/01/2012) * LIPID PROFILE(Performed 11/01/2012) * XR PELVIS W BILAT HIP 2VW(Performed 07/31/2012) Performed for Left hip pain * XR LUMBAR SPINE 2 OR 3VW(Performed 07/31/2012) Performed for Back pain * MICROALBUMIN URINE RANDOM(Performed 07/31/2012) Performed for NIDDM * HEMOGLOBIN A1C(Performed 07/31/2012) Performed for NIDDM * LIPID PROFILE(Performed 07/31/2012) Performed for Mixed hyperlipidemia * CBC W AUTO DIFFERENTIAL(Performed 07/31/2012) Performed for NIDDM * COMPREHENSIVE METABOLIC PANEL(Performed 07/31/2012) Performed for NIDDM , HTN, severe, Ischemic cardiomyopathy, mild, Proximal LAD stent in 2001, RCA occlusion * CARDIAC EKG ORDER(Performed 04/19/2012) * NM MYOCARD PERF REST STRESS(Performed 04/17/2012) Performed for Coronary atherosclerosis of unspecified type of vessel, [place] or graft * EKG 12-LEAD(Performed 04/17/2012) Performed for Unspecified essential hypertension * COMPREHENSIVE METABOLIC PANEL(Performed 04/17/2012) * CBC W AUTO DIFFERENTIAL(Performed 04/17/2012) * STRESS TEST LEXISCAN (NUCLEAR)(Performed 04/17/2012) Performed for Proximal LAD stent in 2001, RCA occlusion, NIDDM , Mixed hyperlipidemia, Ischemic cardiomyopathy, mild * URINALYSIS REFLEX TO MICROSCOPIC NO CULTURE(Performed 03/30/2012) * HEMOGLOBIN A1C(Performed 03/30/2012) * CBC W AUTO DIFFERENTIAL(Performed 03/30/2012) * COMPREHENSIVE METABOLIC PANEL(Performed 03/30/2012) * LIPID PROFILE(Performed 03/30/2012) * EKG 12-LEAD(Performed 03/30/2012) Performed for HTN, severe * PAIN MANAGEMENT PROCEDURE TIME(Performed 06/09/2011) Performed for Connective tissue and disc stenosis of intervertebral foramina of lumbar region, Impingement of vertebral body syndrome * XR HAND LEFT 3VW OR MORE(Performed 01/13/2010) Performed for Pain in Soft Tissues of Limb * LAB RESULTS ORDER(Performed 02/03/2009) * CARDIAC STRESS TEST ORDER(Performed 05/29/2002) * GROSS + MICRO EXAM(Performed 05/24/2000) Results * XR Hip Left 2Vw or More (10/03/2024 9:35 AM FINISHING ROOM OPERATOR) Only the most recent of2 resultswithin the time period is included. Narrative [facility] [address] - 10/03/2024 9:35 AM FINISHING ROOM OPERATOR Please see progress note in Epic for results. Anamaria MARQUEZ DIAGNOSTIC IMAGING O RDERABLES [facility] [address] * (ABNORMAL) GLUCOSE - POINT OF CARE (09/15/2024 11:20 AM FINISHING ROOM OPERATOR) Only the most recent of35 resultswithin the time period is included. Glucose WB/POC 160(H) 70 - 99 mg/dL 09/15/2024 11:22 AM FINISHING ROOM OPERATOR [facility] Specimen Type Cap Fingerstick 2024 11:22 AM FINISHING ROOM OPERATOR [facility] Blood BLOOD SPECIMEN / Unknown 09/15/2024 11:20 AM FINISHING ROOM OPERATOR 09/15/2024 11:22 AM FINISHING ROOM OPERATOR Abdiaziz Flores IV, MD LAB - POINT OF CARE ORDERABLES [facility] [address] [place] [address] * (ABNORMAL) BASIC METABOLIC PANEL (CALCIUM TOTAL) (09/15/2024 5:36 AM FINISHING ROOM OPERATOR) Only the most recent of5 resultswithin the time period is included. Glucose 129(H) 70 - 99 mg/dL 09/15/2024 6:18 AM FINISHING ROOM OPERATOR [facility] Sodium 133(L) 136 - 145 mmol/L 09/15/2024 6:18 AM FINISHING ROOM OPERATOR [facility] Potassium 4.1 3.5 - 5.1 mmol/L 09/15/2024 6:18 AM FINISHING ROOM OPERATOR [facility] Chloride 100 98 - 107 mmol/L 09/15/2024 6:18 AM [facility] CO2 24 22 - 29 mmol/L 09/15/2024 6:18 AM [facility] Calcium 8.6 8.4 - 10.4 mg/dL 09/15/2024 6:18 AM [facility] Anion Gap 9 6 - 16 mmol/L 09/15/2024 6:18 AM [facility] BUN 23 7 - 26 mg/dL 09/15/2024 6:18 AM [facility] Creatinine 1.40(H) 0.72 - 1.25 mg/dL 09/15/2024 6:18 AM [facility] eGFR by CKD-EPI 56(L) >=90 mL/min/1.7 3 m2 09/15/2024 6:18 AM [facility] Blood BLOOD SPECIMEN / Unknown Venipuncture / Unknown 09/15/2024 5:36 AM FINISHING ROOM OPERATOR 09/15/2024 5:46 AM FINISHING ROOM OPERATOR Eve Courtney MD LAB - CHEMISTRY JIM JENKINS Performing Organization Address [facility] de Phone Number [facility] [address] [place] [address] * FL Loren Surgery (09/13/2024 12:30 PM FINISHING ROOM OPERATOR) Narrative [facility] - 09/13/2024 5:22 PM FINISHING ROOM OPERATOR For details of this study, please see the providers note. Abdiaziz Flores IV, MD FLUOROSCOPY ORDERABL ES Performing Organization Address [facility] de Phone Number [facility] [address] [place] [address] * Neuraxial Block (09/13/2024 11:16 AM FINISHING ROOM OPERATOR) Narrative Porfirio Deutsch, VICKY-PLAN REP - 09/13/2024 11:16 AM FINISHING ROOM OPERATOR Porfirio Deutsch APRN-PLAN REP 09/13/2024 11:17 AM Neuraxial Block Note Pre-Procedure: [...] Time: 11 Staff: Anesthesia Provider: Porfirio Deutsch APRN-CRNA - performed the procedure Marycruz Valentin DO GENERAL ANESTHESIA O RDERABLES * FRUCTOSAMINE (07/23/2024 12:10 PM FINISHING ROOM OPERATOR) Fructosamine 280 205 - 285 umol/L 07/24/2024 9:00 PM FINISHING ROOM OPERATOR [employer] ([facility]) Comment: INTERPRETIVE INFORMATION: Fructosamine Variations in levels of serum proteins (albumin and immunoglobulins) may affect fructosamine results. Performed By: [employer] [address] [place] [address] [employer] Lab Manager: Mandeep Rose MD, PhD CLIA Number: [id number] Blood BLOOD SPECIMEN / Unknown Venipuncture / Unknown 07/23/2024 12:10 PM FINISHING ROOM OPERATOR 07/23/2024 12:18 PM FINISHING ROOM OPERATOR Karla ROSALES LAB - CHEMISTRY O RDERABLES [employer] ([facility]) [address] [place] [address], [facility] * (ABNORMAL) COMPREHENSIVE METABOLIC PANEL (07/23/2024 12:10 PM [facility]) Only the most recent of25 resultswithin the time period is included. Glucose 107(H) 70 - 99 mg/dL 07/23/2024 12:35 PM [facility] Sodium 140 136 - 145 mmol/L 07/23/2024 12:35 PM [facility] Potassium 4.2 3.5 - 5.1 mmol/L 07/23/2024 12:35 PM [facility] Chloride 103 98 - 107 mmol/L 07/23/2024 12:35 PM [facility] CO2 29 22 - 29 mmol/L 07/23/2024 12:35 PM [facility] Calcium 9.5 8.4 - 10.4 mg/dL 07/23/2024 12:35 PM [facility] Anion Gap 8 6 - 16 mmol/L 07/23/2024 12:35 PM [facility] BUN 25 7 - 26 mg/dL 07/23/2024 12:35 PM [facility] Creatinine 1.35(H) 0.72 - 1.25 mg/dL 07/23/2024 12:35 PM [facility] Alkaline Phosphatase 41 40 - 150 U/L 07/23/2024 12:35 PM [facility] ALT 14 0 - 55 U/L 07/23/2024 12:35 PM [facility] AST 18 5 - 34 U/L 07/23/2024 12:35 PM [facility] Protein Total 7.0 6.4 - 8.3 gm/dL 07/23/2024 12:35 PM [facility] Albumin 3.8 3.4 - 5.0 gm/dL 07/23/2024 12:35 PM [facility] Bilirubin Total 0.5 0.2 - 1.2 mg/dL 07/23/2024 12:35 PM [facility] eGFR by CKD-EPI 58(L) >=90 mL/min/1.7 3 m2 07/23/2024 12:35 PM [facility] Blood BLOOD SPECIMEN / Unknown Venipuncture / Unknown 07/23/2024 12:10 PM FINISHING ROOM OPERATOR 07/23/2024 12:18 PM FINISHING ROOM OPERATOR Karla Magana LADDER OPERATOR-MANAGER ER LAB - CHEMISTRY O RDERABLES [facility] [address] [place] [address] * EKG 12-LEAD (07/23/2024 12:06 PM FINISHING ROOM OPERATOR) Only the most recent of7 resultswithin the time period is included. Ventricular Rate 59 BPM [facility] Atrial Rate 59 BPM [facility] P-R Interval 154 ms [facility] QRS Duration ms 88 ms [facility] Q-T Interval ms 432 ms [facility] QTC Calculation (Bezet) 427 ms [facility] Calculated P [place] 38 degrees [facility] Calculated R [place] 27 degrees [facility] Calculated T [place] -179 degrees [facility] Interpretation EKG Sinus bradycardia ST & T wave abnormality, consider inferolateral ischemia Abnormal ECG When compared with ECG of 12-OCT-2023 09:26, No significant change was found Confirmed by BETO GIL, BELLA ([id number]) on 07/23/2024 7:18:04 PM [facility] 07/23/2024 12:0 6 PM FINISHING ROOM OPERATOR 07/23/2024 7:18 PM FINISHING ROOM OPERATOR Marycruz Valentin DO ECG ORDERABLES Performing Organization Address City/[facility]/ZIP Co de Phone Number [facility] * US Retroperitoneal Complete (05/22/2024 11:20 AM CDT) Anatomical Region Laterality Modality Abdomen Ultrasound 05/22/2024 11:5 1 AM CDT Impressions 05/22/2024 11:55 AM CDT Impression: Normal examination. > Interpreting Provider: Sandy Uriostegui MD on 05/22/2024 11:55 AM Narrative 05/22/2024 11:55 AM CDT PROCEDURE: US RETROPERITONEAL COMPLETE, DATE/TIME OF EXAM: 05/22/2024 11:20 AM, LOCATION [facility] INDICATION: N28.9: Disorder of kidney and ureter, unspecified ADDITIONAL CLINICAL INFORMATION: Ordering Provider Reason For Exam: Technologist Note: Additional: COMPARISON: None. Indication: Elevated renal function studies. Findings: Ultrasound examination of both kidneys is negative. There is no evidence of a mass, hydronephrosis, or abnormal fluid collections. The right kidney measures 11.76 x 5.48 x 5.77 cm and the left kidney measures 12.4 x 5.88 x 4.68 cm. The urinary bladder is normal in contour. Ureteral jets are seen bilaterally. Bladder volume was measured at approximately 285 mL. Procedure Note Sandy Uriostegui MD - 05/22/2024 PROCEDURE: US RETROPERITONEAL COMPLETE, DATE/TIME OF EXAM: 05/22/2024 11:20 AM, LOCATION [facility] INDICATION: N28.9: Disorder of kidney and ureter, unspecified ADDITIONAL CLINICAL INFORMATION: Ordering Provider Reason For Exam: Technologist Note: Additional: COMPARISON: None. Indication: Elevated renal function studies. Findings: Ultrasound examination of both kidneys is negative. There isno evidence of a mass, hydronephrosis, or abnormal fluid collections. The right kidney measures 11.76 x 5.48 x 5.77 cm and the left kidneymeasures 12.4 x 5.88 x 4.68 cm. The urinary bladder is normal in contour. Ureteral jets are seen bilaterally. Bladder volume was measured at approximately 285 mL. Impression: Normal examination. > Interpreting Provider: Sandy Uriostegui MD on 05/22/2024 11:55 AM Natalie Lunauster LADDER OPERATOR-MANAGER ER US ORDERABLES * (ABNORMAL) CBC WITH DIFFERENTIAL (05/21/2024 10:41 AM CDT) Only the most recent of25 resultswithin the time period is included. WBC 7.4 3.4 - 10.8 x10E3/uL [facility] ACCOUNT BILL RBC 4.19 4.14 - 5.80 x10E6/uL [facility] ACCOUNT BILL Hemoglobin 12.5(L) 13.0 - 17.7 g/dL [facility] ACCOUNT BILL Hematocrit 38.5 37.5 - 51.0 % [facility] ACCOUNT BILL MCV 92 79 - 97 fL [facility] ACCOUNT BILL MCH 29.8 26.6 - 33.0 pg [facility] ACCOUNT BILL MCHC 32.5 31.5 - 35.7 g/dL [facility] ACCOUNT BILL RDW 12.2 11.6 - 15.4 % [facility] ACCOUNT BILL Platelet Count 173 150 - 450 x10E3/uL [facility] ACCOUNT BILL Granulocytes % 63 Not Estab. % [facility] ACCOUNT BILL Lymphocytes % 25 Not Estab. % [facility] ACCOUNT BILL Monocytes % 9 Not Estab. % [facility] ACCOUNT BILL Eosinophils % 2 Not Estab. % [facility] ACCOUNT BILL Basophils % 1 Not Estab. % [facility] ACCOUNT BILL Granulocytes Absolute 4.7 1.4 - 7.0 x10E3/uL [facility] ACCOUNT BILL Lymphocytes Absolute 1.9 0.7 - 3.1 x10E3/uL [facility] ACCOUNT BILL Monocytes Absolute 0.7 0.1 - 0.9 x10E3/uL [facility] ACCOUNT BILL Eosinophils Absolute 0.1 0.0 - 0.4 x10E3/uL [facility] ACCOUNT BILL Basophils Absolute 0.0 0.0 - 0.2 x10E3/uL [facility] ACCOUNT BILL Immature Granulocytes 0 Not Estab. % [facility] ACCOUNT BILL Immature Granulocytes Absolute 0.0 0.0 - 0.1 x10E3/uL [facility] ACCOUNT BILL Blood BLOOD SPECIMEN / Unknown 05/21/2024 10:41 AM CDT 05/21/2024 Narrative [facility] ACCOUNT BILL - 05/21/2024 11:07 PM CDT Performed at: [address] [id number] Car Dryer: Leroy Puri PhD, Phone: [phone] Natalie Valietne LADDER OPERATOR-MANAGER ER LAB - HEMATOLOGY ORDERABLES Performing Organization Address City/State/[facility] Co de Phone Number [facility] ACCOUNT BILL [address] [place] [address] * (ABNORMAL) HEMOGLOBIN A1C W EAG (05/13/2024 2:38 PM CDT) Pathologist [facility] Hemoglobin A1c 6.7(H) 4.8 - 5.6 % [facility] ACCOUNT BILL Comment: . Prediabetes: 5.7 - 6.4 Diabetes: >6.4 Glycemic control for adults with diabetes: <7.0 Estimated Average Glucose 146 mg/dL [facility] ACCOUNT BILL Blood BLOOD SPECIMEN / Unknown 05/13/2024 2:38 PM CDT 05/13/2024 Narrative Resulting Agency Comment [facility] [address] [facility] [phone] [facility] - CHEMISTRY O RDERABLES Performing Organization Address [facility] Co de Phone Number [facility] ACCOUNT BILL [address] [place] [address] * PT PTT PANEL (05/13/2024 2:38 PM CDT) INR 1.1 0.9 - 1.2 [facility] ACCOUNT BILL Comment: Reference interval is for non-anticoagulated patients. . Suggested INR therapeutic range for Vitamin K antagonist therapy: Standard Dose (moderate intensity therapeutic range): 2.0 - 3.0 Higher intensity therapeutic range 2.5 - 3.5 PT 11.9 9.1 - 12.0 sec [facility] ACCOUNT BILL PTT 31 24 - 33 sec [facility] ACCOUNT BILL Comment: This test has not been validated for monitoring unfractionated heparin therapy. aPTT-based therapeutic ranges for unfractionated heparin therapy have not been established. For general guidelines on Heparin monitoring, refer to the [facility] Directory of Services. Blood BLOOD SPECIMEN / Unknown 05/13/2024 2:38 PM CDT 05/13/2024 Narrative Resulting Agency Comment Lab Testing performed at: [facility] [address] [place] [address] [phone] Natalie ROSALES LAB - COAGULATION ORDERABLES Performing Organization Address [facility] Co de Phone Number [facility] ACCOUNT BILL [address] [place] [address] * IRON + TIBC PANEL (05/13/2024 2:38 PM CDT) Only the most recent of3 resultswithin the time period is included. TIBC 365 250 - 450 ug/dL [facility] ACCOUNT BILL UIBC 310 111 - 343 ug/dL [facility] ACCOUNT BILL Iron 55 38 - 169 ug/dL [facility] ACCOUNT BILL Iron Saturation 15 15 - 55 % [facility] ACCOUNT BILL Blood BLOOD SPECIMEN / Unknown 05/13/2024 2:38 PM CDT 05/13/2024 Narrative Resulting Agency Comment Lab Testing performed at: [facility] [address] [facility] [phone] Natalie Valiente LADDER OPERATOR-MANAGER ER LAB - CHEMISTRY O RDERABLES [facility] ACCOUNT BILL [address] [place] [address] * MRI LUMBAR SPINE WWO CONTRAST (02/16/2024 11:02 AM CDT) Anatomical Region Laterality Modality Spine Magnetic Resonan ce 02/16/2024 11:3 1 AM CDT Impressions 02/16/2024 11:47 AM CDT IMPRESSION: Postop changes at L3-4. There is noted to be a fluid collection posterior to the canal with surrounding enhancement. This may represent a seroma with perineural fibrosis. One cannot completely exclude abscess. Correlation with clinical findings such as fevers and sedimentation rate it would be amenable to aspiration. No epidural mass or enhancement is identified. Spondylitic and discogenic changes with the various degrees of stenosis as described above. > Interpreting Provider: Herson Washington MD on 02/16/2024 11:47 AM Narrative 02/16/2024 11:47 AM CDT Procedure: MRI LUMBAR SPINE WWO CONTRAST Exam Date: 02/16/2024 11:04 AM Location: [facility] Indication: M54.16: Radiculopathy, lumbar region M48.061: Spinal stenosis, lumbar region without neurogenic claudication M51.26: Other intervertebral disc displacement, lumbar region Additional History: Status post surgery in October 2023. COMPARISON: MRI from July 2023 TECHNIQUE: Lumbar spine MRI was performed without and with IV contrast. CONTRAST: GADOTERATE MEGLUMINE 0.5 MMOL/ML IV SSM SO:20 mL Findings: The vertebral bodies are normally aligned. There is no evidence of fracture or subluxation. The vertebral bodies are of normal height. There is disc space narrowing at L2-3, L3-4 and L5/S1. There is a rudimentary disc at S1/S2. There is desiccation of the L2-3, L3-4 and L5/S1 discs. Stable hemangiomas are noted at T12 and L1. L1-2: There are mild degenerative changes of facet joints. There is no evidence for disc bulge or protrusion. There is no significant central or neural foraminal stenosis. L2-3: There are degenerative changes of the facet joints. There is ligamentum flavum hypertrophy. There is a tiny central disc protrusion. There is no significant central stenosis. There is mild right neural foraminal stenosis. L3-4: Since the prior exam, patient is undergone decompressive laminectomy. There are degenerative changes of the facet joints. There is a small central disc protrusion with slight caudal extrusion. Posterior to the spinal canal, there is noted to be a fluid collection measuring 18 mm in AP diameter. It does produce some mass effect along the posterior aspect of the thecal sac. There is surrounding enhancement. 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 One cannot completely exclude abscess. Correlation with clinical symptoms such as fevers and sedimentation rate. This would be amenable to percutaneous aspiration. There is overall moderate central stenosis at this level. L4-5: There are degenerative changes the facet joints. There is ligamentum flavum hypertrophy. There is diffuse disc bulging. There is moderate to severe central stenosis. There is bilateral lateral recess stenosis. There is moderate bilateral neural foraminal stenosis. L5/S1: There are degenerative changes of the facet joints. Is ligamentum flavum hypertrophy. There is diffuse disc bulging. There is [id number] central stenosis with bilateral lateral recess stenosis. There is moderate bilateral neural foraminal stenosis. No epidural mass is identified. No epidural enhancement is appreciated. Procedure Note Herson Washington MD - 02/16/2024 Procedure: MRI LUMBAR SPINE WWO CONTRAST Exam Date: 02/16/2024 11:04 AM Location: [facility] Indication: M54.16: Radiculopathy, lumbar region M48.061: Spinal stenosis, lumbar region without neurogenic claudication M51.26: Other intervertebral disc displacement, lumbar region Additional History: Status post surgery in October 2023. COMPARISON: MRI from July 2023 TECHNIQUE: Lumbar spine MRI was performed without and with IV contrast. CONTRAST: GADOTERATE MEGLUMINE 0.5 MMOL/ML IV SSM SO:20 mL Findings: The vertebral bodies are normally aligned. There is noevidence of fracture or subluxation. The vertebral bodies are of normal height. There is disc space narrowing at L2-3, L3-4 and L5/S1. There is a rudimentary disc at S1/S2. There is desiccation of the L2-3, L3-4 andL5/S1 discs. Stable hemangiomas are noted at T12 and L1. L1-2: There are mild degenerative changes of facet joints. There is no evidence for disc bulge or protrusion. There is no significant centralor neural foraminal stenosis. L2-3: There are degenerative changes of the facet joints. There is ligamentum flavum hypertrophy. There is a tiny central disc protrusion. There is no significant central stenosis. There is mild right neural foraminal stenosis. L3-4: Since the prior exam, patient is undergone decompressivelaminectomy. There are degenerative changes of the facet joints. There is a small central disc protrusion with slight caudal extrusion. Posterior to the spinal canal, there is noted to be a fluid collection measuring 18 mm inAP diameter. It does produce some mass effect along the posterior aspect of the thecal sac. There is surrounding enhancement. 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 One cannot completelyexclude abscess. Correlation with clinical symptoms such as fevers and sedimentation rate. This would be amenable to percutaneous aspiration. There is overall moderate central stenosis at this level. L4-5: There are degenerative changes the facet joints. There isligamentum flavum hypertrophy. There is diffuse disc bulging. There is moderate to severe central stenosis. There is bilateral lateral recess stenosis.There is moderate bilateral neural foraminal stenosis. L5/S1: There are degenerative changes of the facet joints. Is ligamentum flavum hypertrophy. There is diffuse disc bulging. There is [id number] central stenosis with bilateral lateral recessstenosis. There is moderate bilateral neural foraminal stenosis. No epidural mass is identified. No epidural enhancement is appreciated. IMPRESSION: Postop changes at L3-4. There is noted to be a fluid collectionposterior to the canal with surrounding enhancement. This may represent a seromawith perineural fibrosis. One cannot completely exclude abscess. Correlation with clinical findings such as fevers and sedimentation rate it would be amenable to aspiration. No epidural mass or enhancement is identified. Spondylitic and discogenic changes with the various degrees of stenosisas described above. > Interpreting Provider: Herson Washington MD on 02/16/2024 11:47 AM Gordy Yancey MD MR ORDERABLES * PAIN MANAGEMENT PROCEDURE TIME (02/05/2024 7:39 AM CDT) Only the most recent of11 resultswithin the time period is included. Anatomical Region Laterality Modality X-Ray Angiograph y Narrative 02/05/2024 7:46 AM CDT Gordy Yancey MD 02/05/2024 7:47 AM Left Hip Joint Injection Under Fluoroscopy Dina Ritter [id number] 02/05/2024 No Known Allergies Procedure: Left Intra Articular Hip Joint Injection Under Fluoroscopy Indication for Procedure:Hip pain/OA Hip M16.12 . Informed Consent: After the patient, Dina Ritter, was informed of the risks and benefits of the procedure and all questions were answered, the consent was signed. Prep:Patient identified, proper procedure and site verified, marked by Dr. Redman. In the supine position, left hip joint was identified under fluoroscopy and marked on the patient's skin. The skin was prepped in a routine sterile fashion using chloroprep. Responsible driver operator not needed as the patient is not having sedation. The left hip joint was approached using a 22 gauge, 6 inch spinal needle after the skin and muscle overlying the hip joint was anesthetized using 1% lidocaine MPF muscle overlying the area. Once the needle was in proper position, 0.5ml of Isovue-M 200 was slowly injected to outline the left hip joint. The syringe was then changed and 2.0 ml of Kenalog 40 mg per ml and 3.0 ml of 1 % lidocaine was injected in a slow, incremental fashion The needle was removed, the skin was cleaned, and ensured no bleeding was noted. Total Lidocaine : 5ml Total Kenalog : 80mg Total Isovue-M 200 : 0.5ml, 9.5 ml wasted The patient tolerated the procedure well without complications. Vital signs stable. Injection site clean, dry, and intact. Post procedure instructions were given to the patient and follow up appointment was confirmed. The patient was discharged with information on how to reach the clinic at any time for questions or concerns. Patient ambulatory, denies complaints, DC to home. Procedure codes:17201 Pre VAS 1010 Post VAS 0-10 Gordy Yancey MD Gordy Yancey MD DIAGNOSTIC IMAGING O RDERABLES * (ABNORMAL) LIPID PROFILE W TCHOL/HDL (01/09/2024 9:20 AM CDT) Only the most recent of11 resultswithin the time period is included. Cholesterol 149 100 - 199 mg/dL [facility] ACCOUNT BILL Triglycerides 145 0 - 149 mg/dL [facility] ACCOUNT BILL HDL Cholesterol 34(L) >39 mg/dL [facility] ACCOUNT BILL VLDL Calculated 26 5 - 40 mg/dL [facility] ACCOUNT BILL LDL Calculated 89 0 - 99 mg/dL [facility] ACCOUNT BILL Comment NOT AVAILABLE [facility] ACCOUNT BILL Comment:Result cannot be obt ained for this observation. Cholesterol/HDL Ratio 4.4 0.0 - 5.0 ratio [facility] ACCOUNT BILL Comment: T. Chol/HDL Ratio Men Women 1/2 Avg.Risk 3.4 3.3 Avg.Risk 5.0 4.4 2X Avg.Risk 9.6 7.1 3X Avg.Risk 23.4 11.0 FASTING Blood BLOOD SPECIMEN / Unknown 01/09/2024 9:20 AM CDT 01/09/2024 Narrative Resulting Agency Comment [facility]: [facility] [address] [facility] [phone] Natalie Valiente APRN-PARRISH LAB - CHEMISTRY O RDERABLES [facility] ACCOUNT BILL [address] [place] [address] * URIC ACID BLOOD (01/09/2024 9:20 AM CDT) Only the most recent of8 resultswithin the time period is included. Uric Acid 7.3 3.8 - 8.4 mg/dL [facility] ACCOUNT BILL Comment: Therapeutic target for gout patients: <6.0 FASTING Blood BLOOD SPECIMEN / Unknown 01/09/2024 9:20 AM CDT 01/09/2024 Narrative Resulting Agency Comment Lab Testing performed at: [facility] [address] [facility] [phone] Natalie ROSALES LAB - CHEMISTRY O RDERABLES [facility] [place] [address] * PROC OPH DIAB BILAT RET SCRN [...] PROCEDURE/MINOR S URGICAL ORDERABLES Performing Organization Address [facility] Co de Phone Number [facility] * HEMOGLOBIN A1C - POINT OF CARE (AMB) (01/02/2024 10:31 AM CDT) Only the most recent of10 resultswithin the time period is included. Hemoglobin A1c POCT 6.2 % [facility] Expiration Date 09/13/25 [facility] Lot # [id number] [facility] QC Verified Yes Yes [facility] Blood BLOOD SPECIMEN / Unknown 01/02/2024 10:31 AM CDT Natalie Valiente APRN-MANAGER ER LAB - POINT OF CA RE ORDERABLES Performing Organization Address City/[facility]/ZIP Co de Phone Number [facility] [address] [phone] * MICROALBUMIN URINE - POINT OF CARE (AMB) (01/02/2024 10:29 AM CDT) QC Verified Yes Yes [facility] Microalbumin 150 [facility] Creatinine POCT 100 [facility] Microalbumin/Crea tinine Ratio >300 [facility] Urine URINE / Unknown 01/02/2024 1 0:29 AM CDT Natalie Valiente LADDER OPERATOR-MANAGER ER LAB - POINT OF CA RE ORDERABLES [facility] [address] [phone] * CARDIAC RHYTHM STRIP ORDER (11/07/2023 9:32 AM FINISHING ROOM OPERATOR) Only the most recent of4 resultswithin the time period is included. Narrative 11/07/2023 9:32 AM FINISHING ROOM OPERATOR Ordered by an unspecified provider. Scanned Document CARDIAC SERVICES ORD ERABLES * APHERESIS/TRANSFUSION ORDER (11/07/2023 9:32 AM FINISHING ROOM OPERATOR) Narrative 11/07/2023 9:32 AM FINISHING ROOM OPERATOR Ordered by an unspecified provider. Scanned Document NURSING - VITAL SIGN S AND ASSESSMENT * XR LUMBAR SPINE IN OR 1VW (11/02/2023 2:58 PM FINISHING ROOM OPERATOR) Anatomical Region Laterality Modality Spine Radiographic Monica ging 11/02/2023 4:01 PM FINISHING ROOM OPERATOR Narrative 11/02/2023 4:02 PM FINISHING ROOM OPERATOR PROCEDURE: XR LUMBAR SPINE IN OR 1VW DATE/TIME OF EXAM: 11/02/2023 2:58 PM CLINICAL INFORMATION: None relevant/not provided if blank. Indication: M54.50: Low back pain, unspecified Additional History: COMPARISON: None. Findings: Comparison January 25, 2022. 5 nonrib-bearing lumbar type vertebral segments. Surgical clamp assess at the L4 level/L4 spinous process. Atherosclerotic aorta. > Interpreting Provider: Eldon Cortez MD on 11/02/2023 4:02 PM Procedure Note Eldon Cortez MD - 11/02/2023 PROCEDURE: XR LUMBAR SPINE IN OR 1VW DATE/TIME OF EXAM: 11/02/2023 2:58 PM CLINICAL INFORMATION: None relevant/not provided if blank. Indication: M54.50: Low back pain, unspecified Additional History: COMPARISON: None. Findings: Comparison January 25, 2022. 5 nonrib-bearing lumbar type vertebralsegments. Surgical clamp assess at the L4 level/L4 spinous process.Atherosclerotic aorta. > Interpreting Provider: Eldon Cortez MD on 11/02/2023 4:02 PM Porfirio Robb MD DIAGNOSTIC IMAGING O RDERABLES * ETT LINE PERFORMABLE (11/02/2023 2:26 PM FINISHING ROOM OPERATOR) Narrative Mackenzie Salcedo APRN-CRNA - 11/02/2023 2:26 PM FINISHING ROOM OPERATOR Mackenzie Salcedo APRN-CRNA 11/02/2023 2:27 PM Endotracheal Tube Placement: Patient Location: OR. Intubation Event Date/Time: 11/02/2023 1:56 PM Procedure: intubation (22501). Procedure Section: Sedation: under general anesthesia. Indications for Airway Management: anesthesia Induction: standard IV Patient Position: sniffing and supine Mask Ventilation: easy with oral airway. Blade Type: Preciado Blade Size: 3 Laryngoscopy View: grade 1 (full cords) Intubation Adjuncts: stylet Tube: endotracheal tube Placement: oral Tube type: cuff - inflated Tube Size (MM): 8 Depth of Insertion (CM): 24 Measured From: teeth Cuff volume (mL): 10 Cuff Inflated With: air Number of Attempts: 1. Placement Verified By: bilateral breath sounds, chest auscultation, CO2 monitor and direct visualization Tube secured with: adhesive tape. Dentition unchanged? Yes Difficult Airway? No. Procedure Start Time: 11/02/2023 1:56 PM. Staff Section Anesthesia Provider: Faisal Goncalves, Performed the procedure Provider #1: Mackenzie Salcedo APRN-CRNA. Diandra Smith MD GENERAL ANESTHESI A ORDERABLES * BLOOD TYPE VERIFICATION (11/02/2023 11:52 AM FINISHING ROOM OPERATOR) ABO Rh A NEG 11/02/2023 12:28 PM FINISHING ROOM OPERATOR [facility]OD [facility] Blood Bank BLOOD SPECIMEN / Unknown Venipuncture / Unknown 11/02/2023 11:52 AM FINISHING ROOM OPERATOR 11/02/2023 11:55 AM FINISHING ROOM OPERATOR Porfirio Robb MD LAB - BLOOD BANK ORD ERABLES Performing Organization Address City/[facility]/ZIP Co de Phone Number [facility] [address] [phone] * TYPE + SCREEN PANEL (11/02/2023 11:40 AM FINISHING ROOM OPERATOR) ABO Rh A NEG 11/02/2023 12:28 PM FINISHING ROOM OPERATOR [facility] Comment:No history; collect retype. Antibody Screen NEG 12:28 PM FINISHING ROOM OPERATOR [facility] Blood Bank BLOOD SPECIMEN / Unknown Venipuncture / Unknown 11/02/2023 11:40 AM FINISHING ROOM OPERATOR 11/02/2023 11:45 AM FINISHING ROOM OPERATOR Marycruz Valentin DO LAB - BLOOD BANK ORD ERABLES Performing Organization Address City/[facility]/ZIP Co de Phone Number [facility] [address] [phone] * ECHO COMPLETE (10/20/2023 1:39 PM FINISHING ROOM OPERATOR) BSA [id number] m2 SSM CV FUJ I PACS LVOT stroke vol 74.48 mL [facility] CV FUJI PACS LVOT stroke vol index 34.58 mL/m2 [facility] PACS LV stroke vol 2D teich 48.931 ml SSM CV FUJI PACS LV Stroke Index 2D Teich 22.72 mL/m2 [facility] FUJI PACS AV envelope time 293 ms SSM CV FUJI PACS LVOT envelope time 343 ms SSM CV FUJI PACS LVIDd 4.59 4.2 - 5.8 cm SSM CV FUJI PACS LVIDs 3.41 2.5 - 4.0 cm SSM CV FUJI PACS IVSd 2D 1.725 0.6 - 1 cm SSM CV FUJI PACS LVPWd 1.55 0.6 - 1 cm SSM CV FUJI PACS Fractional Shortening 2D 26 28 - 44 % SSM CV FUJI PACS LV ESV 2D 47.7 21 - 61 mL SSM CV FUJI PACS LV ESV index 2D 22.15 11 - 31 mL/m2 SSM CV FUJI PACS LV EDV 2D 96.631 62 - 150 mL SSM CV FUJI PACS LV EDV index 2D 44.87 34 - 74 mL/m2 SSM [facility] FUJI PACS LVOT diam 2.0 cm SSM CV FUJ I PACS LVOT area 3.23 cm2 SSM CV FUJ I PACS LV RWT 0.674 SSM CV FUJ I PACS IVS/LVPW 1.117 SSM CV FUJ I PACS LV mass 2D 323.743 96 - 200 g SSM CV FUJI PACS LV mass index 2D 150.32 50 - 102 g/m2 SSM CV FUJI PACS MV E pk lizz 62.646 cm/s SSM CV F UJI PACS MV avg E/e' ratio 18.01 SS M CV FUJI PACS MV A pk lizz 79.368 cm/s SSM CV F UJI PACS MV E A ratio 0.79 SSM CV FUJI PACS MV E' lateral lizz 3.082 cm/s SS M CV FUJI PACS MV DT 270 ms SSM CV FUJ I PACS MV E' septal lizz 3.993 cm/s SSM CV FUJI PACS MV E/e' septal 15.689 SSM C V FUJI PACS MV E/e' lateral 20.326 SSM CV FUJI PACS LA vol BP 71.631 mL SSM CV FUJ I PACS LVOT pk lizz 1.03 m/s SSM CV F UJI PACS LVOT mn lizz 0.67 m/s SSM CV F UJI PACS LVOT mn grad 2.2 mmHg SSM CV FUJI PACS LVOT Cardiac Output 4.455 l/min SSM CV FUJI PACS LVOT Cardiac Index 2.07 l/min/m2 SSM CV FUJI PACS LA vol index 33.3 16 - 34 mL/m2 SSM CV FUJI PACS LA vol BP A-L 75.858 mL SSM CV FUJI PACS TV S' lizz 16.217 cm/s SSM CV FUJ I PACS TAPSE 2.306 1.7 cm SSM CV FUJ I PACS AV mn grad 5 mmHg SSM CV FU JI PACS AV pk grad 8 mmHg SSM CV FU JI PACS AV mn lizz 1.12 m/s SSM CV FUJ I PACS AV pk lizz 1.39 m/s SSM CV FUJ I PACS AV VTI 32.715 cm SSM CV FUJ I PACS LVOT pk grad 4.258 mmHg SSM CV FUJI PACS LVOT VTI 23.08 cm SSM CV FUJ I PACS AV area cont VTI 2.3 cm2 SSM CV FUJI PACS AV area pk lizz 2.4 cm2 SSM C V FUJI PACS AV Doppler lizz index pk lizz 0.744 SSM CV FUJI PACS Dimensionless Index 0.705 SSM CV FUJI PACS MV decel slope 231.704 cm/s2 SSM C V FUJI PACS PV pk lizz 102.279 cm/s SSM CV FUJ I PACS PV pk grad 4 mmHg SSM CV FU JI PACS Ascending aorta 3.55 cm SSM CV FUJI PACS LA ESV A4C MOD Index 33 ml/m2 SSM CV FUJI PACS LA ESV A2C MOD Index 28 ml/m2 SSM CV FUJI PACS Prox Asc Ao Diameter Index 1.65 cm SSM CV FUJI PACS LA Size 4.455 cm SSM CV FUJ I PACS LVIDs index 1.58 1.3 - 2.1 cm/m2 SSM CV FUJI PACS LV LVIDd index 2.13 2.2 - 3.0 cm/m2 SSM CV FUJI PACS Anatomical Region Laterality Modality Ultrasound Narrative 10/20/2023 2:04 PM FINISHING ROOM OPERATOR Left Ventricle: Left ventricle size is normal. Moderately increased wall thickness. Normal systolic function with a visually estimated EF of 55 - 60%. Normal wall motion. Grade I diastolic dysfunction with normal left atrial pressure. Aortic Valve: Mildly thickened leaflets. Mildly calcified leaflets. Aortic sclerosis. Left Atrium: Left atrium is mildly dilated. Left atrium volume index is 33.3 mL/m2. Pericardium: Trivial pericardial effusion present. Left Ventricle Left ventricle size is normal. Moderately increased wall thickness. Normal systolic function with a visually estimated EF of 55 - 60%. Normal wall motion. Grade I diastolic dysfunction with normal left atrial pressure. Right Ventricle Right ventricle size is normal. Normal systolic function. Left Atrium Left atrium is mildly dilated. Left atrium volume index is 33.3 mL/m2. Right Atrium Right atrium size is normal. IVC/SVC IVC diameter is less than or equal to 21 mm and decreases greater than 50% during inspiration; therefore the estimated right atrial pressure is normal (~3 mmHg). Mitral Valve Valve structure is normal. No restricted motion. Trace regurgitation. No stenosis. Tricuspid Valve Valve structure is normal. No restricted motion. Trace regurgitation. No stenosis. Aortic Valve Mildly thickened leaflets. Mildly calcified leaflets. No restricted motion. No regurgitation. Aortic sclerosis. Pulmonic Valve Valve structure is normal. No restricted motion. No regurgitation. No stenosis. Ascending Aorta Normal sized sinus of Valsalva (aortic root) and ascending aorta. Pericardium Trivial pericardial effusion present. Study Details Study quality was fair. A complete 2D, color Doppler, spectral Doppler and M- mode echocardiogram was performed. The apical, parasternal, subcostal and suprasternal views were obtained. Procedure Note Gonzalo Park MD - 10/20/2023 Left Ventricle: Left ventricle size is normal. Moderately increasedwall thickness. Normal systolic function with a visually estimated EF of55 - 60%. Normal wall motion. Grade I diastolic dysfunction with normalleft atrial pressure. Aortic Valve: Mildly thickened leaflets. Mildly calcified leaflets.Aortic sclerosis. Left Atrium: Left atrium is mildly dilated. Left atrium volume index is33.3 mL/m2. Pericardium: Trivial pericardial effusion present. Eliane Fatima MD ECHO CUPID * (ABNORMAL) HEMOGLOBIN A1C (10/12/2023 9:21 AM FINISHING ROOM OPERATOR) Only the most recent of15 resultswithin the time period is included. Hemoglobin A1c 6.4(H) <5.7 % 10/12/2023 9:48 AM FINISHING ROOM OPERATOR [facility] Estimated Average Glucose 137 mg/dL 10/12/2023 9:48 AM FINISHING ROOM OPERATOR [facility] Blood BLOOD SPECIMEN / Unknown Venipuncture / Unknown 10/12/2023 9:21 AM FINISHING ROOM OPERATOR 10/12/2023 9:34 AM FINISHING ROOM OPERATOR Narrative [facility] - 10/12/2023 9:48 AM FINISHING ROOM OPERATOR HbA1c Interpretation: Normal: < 5.7% Pre-diabetes: 5.7-6.4% Diabetes: Equal to or greater than 6.5% Test results diagnostic of diabetes should be repeated for confirmation. Treatment target values recommended by ADA and other clinical organizations should be used to evaluate metabolic control in patients. This test should not replace glucose testing for patients with Type 1 diabetes, pediatric patients, or women. Falsely low HbA1c results may be observed in patients with clinical conditions that shorten erythrocyte life span or decrease mean erythrocyte age such as the presence of unstable hemoglobin variants, elevated hemoglobin F level or other causes of hemolytic anemia. HbA1c may not accurately reflect glycemic control when clinical conditions that affect erythrocyte survival are present. Severe Iron deficiency anemia may yield falsely high results. Hemoglobin A1c assay should not be used to diagnose or monitor diabetes in patients with malignancy, recent blood transfusion, chronic kidney or liver disease. This method may yield falsely low results when hemoglobin (HbF) exceeds 5% in the specimen. [facility] [place] [employer] assay for the measurement of HbA1c is a National Glycohemoglobin Standardization Program (NGSP) certified method. Karla Magana APRN-[facility] - CHEMISTRY O RDERABLES [facility] [address] [place] [address] * MRI LUMBAR SPINE WO CONTRAST (07/21/2023 3:46 PM FINISHING ROOM OPERATOR) Only the most recent of3 resultswithin the time period is included. Anatomical Region Laterality Modality Spine Magnetic Resonan ce 07/21/2023 3:53 PM FINISHING ROOM OPERATOR Impressions 07/21/2023 11:08 PM FINISHING ROOM OPERATOR IMPRESSION: 1. Stable lower lumbar facet osteoarthritis and multilevel spinal stenosis and neural foraminal stenosis. There is however, no visible neural impingement. See text. 2. Circumferential annular fissure of the entire L2-L3 annulus is new from the prior study, but is not associated with disc bulging or herniation of nucleus pulposus. 3. 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 > Interpreting Provider: Fab Alcantar MD on 07/21/2023 11:08 PM Narrative 07/21/2023 11:08 PM FINISHING ROOM OPERATOR PROCEDURE: MRI LUMBAR SPINE WO CONTRAST DATE/TIME OF EXAM: 07/21/2023 3:46 PM CLINICAL INFORMATION: None relevant/not provided if blank. Indication: M48.061: Spinal stenosis, lumbar region without neurogenic claudication M51.26: Other intervertebral disc displacement, lumbar region M48.061: Spinal stenosis, lumbar region without neurogenic claudication M54.17: Radiculopathy, lumbosacral region EXAMINATION: MRI OF THE LUMBAR SPINE WITHOUT CONTRAST HISTORY: Low back pain and discomfort. Suspected lumbar spinal stenosis. TECHNIQUE: MRI of the lumbar spine was performed without contrast according to standard protocol on a 1.0 Jessica open MRI scanner. COMPARISON: MRI lumbar spine without contrast, 01/14/2019 and lumbar spine radiographs dated 01/25/2022.. FINDINGS: The alignment is normal and stable. Vertebral bodies are normal in height. No fracture, marrow edema, spondylolisthesis or a malignant marrow replacing process is identified. T1 hyperintense and T2 hyperintense intraosseous hemangiomas of T12 and L1 vertebral bodies are similar to the previous examination and are not fully suppress on fat suppressed T2 SPAIR sequence suggestive of atypical hemangiomas. Marrow signal intensity is otherwise normal. The conus medullaris terminates at the level of L2 and is normal. The imaged lower thoracic spine cord is normal and is not compressed. The anterior and posterior longitudinal ligaments as well as the posterior ligamentous complex appear intact. The intervertebral disc spaces are normal in heights and there is no significant endplate osteophytosis except minimally anteriorly. The discs are desiccated. No significant posterior paravertebral muscular atrophy or retroperitoneal soft tissue abnormality is identified. T12-L1 and L1-L2: The discs, central canal, lower cord, conus, neural foramina and exiting nerves are normal. There is no significant facet osteoarthritis. L2-L3: There is circumferential annular fissure along the entire annulus without significant bulging or herniation of nucleus pulposus. There is mild bilateral facet osteoarthritis. No spinal stenosis in midline, lateral recess stenosis or neural foraminal stenosis is identified. There is no visible impingement on the traversing or exiting nerves. L3-L4: The combination of circumferential disc bulging and advanced facet osteoarthritis as well as symmetric hypertrophy of ligamentum flavum and fat in dorsal epidural space results in moderate to severe spinal stenosis in midline to 4.5 mm AP diameter of thecal sac, severe compression of bilateral lateral recesses and crowding of traversing nerves with paucity of cerebrospinal fluid in the thecal sac. The traversing nerves are compressed at this level. There is a [id number] bilateral neural foraminal stenosis without neural impingement. L4-L5: There is symmetric moderate hypertrophy of ligamentum flavum, moderate bilateral facet osteoarthritis and borderline circumferential disc bulging. The AP diameter of thecal sac in midline is 8.9 mm suggestive of borderline stenosis. There is mild bilateral lateral recess stenosis. No impingement on traversing nerves is identified. There is a moderate to severe left neural foraminal stenosis without causing visible impingement on exiting nerves. L5-S1: Tiny central posterior disc protrusion is superimposed on moderate circumferential disc bulging. There is moderate to severe bilateral facet osteoarthritis. There is moderate bilateral lateral recesses stenosis. No visible impingement on traversing S1 nerves in the lateral recesses is identified in supine position. There is moderate bilateral neural foraminal stenosis. Impingement on exiting right L5 nerve in the foramen is possible. Procedure Note Fab Alcantar MD - 07/21/2023 PROCEDURE: MRI LUMBAR SPINE WO CONTRAST DATE/TIME OF EXAM: 07/21/2023 3:46 PM CLINICAL INFORMATION: None relevant/not provided if blank. Indication: M48.061: Spinal stenosis, lumbar region without neurogenic claudication M51.26: Other intervertebral disc displacement, lumbar region M48.061: Spinal stenosis, lumbar region without neurogenic claudication M54.17: Radiculopathy, lumbosacral region EXAMINATION: MRI OF THE LUMBAR SPINE WITHOUT CONTRAST HISTORY: Low back pain and discomfort. Suspected lumbar spinal stenosis. TECHNIQUE: MRI of the lumbar spine was performed without contrastaccording to standard protocol on a 1.0 Jessica open MRI scanner. COMPARISON: MRI lumbar spine without contrast, 01/14/2019 and lumbarspine radiographs dated 01/25/2022.. FINDINGS: The alignment is normal and stable. Vertebral bodies are normal inheight. No fracture, marrow edema, spondylolisthesis or a malignant marrow replacing process is identified. T1 hyperintense and T2 hyperintense intraosseous hemangiomas of T12 and L1 vertebral bodies are similar tothe previous examination and are not fully suppress on fat suppressed [id number] sequence suggestive of atypical hemangiomas. Marrow signal intensity is otherwise normal. The conus medullaris terminates at the level of L2 and is normal. The imaged lower thoracic spine cord is normal and is not compressed. The anterior and posterior longitudinal ligaments as well as the posterior ligamentous complex appear intact. The intervertebral disc spaces are normal in heights and there is no significant endplate osteophytosis except minimally anteriorly. Thediscs are desiccated. No significant posterior paravertebral muscular atrophyor retroperitoneal soft tissue abnormality is identified. T12-L1 and L1-L2: The discs, central canal, lower cord, conus, neural foramina and exiting nerves are normal. There is no significant facet osteoarthritis. L2-L3: There is circumferential annular fissure along the entire annulus without significant bulging or herniation of nucleus pulposus. There is mild bilateral facet osteoarthritis. No spinal stenosis in midline,lateral recess stenosis or neural foraminal stenosis is identified. There is no visible impingement on the traversing or exiting nerves. L3-L4: The combination of circumferential disc bulging and advancedfacet osteoarthritis as well as symmetric hypertrophy of ligamentum flavum and fat in dorsal epidural space results in moderate to severe spinalstenosis in midline to 4.5 mm AP diameter of thecal sac, severe compression of bilateral lateral recesses and crowding of traversing nerves withpaucity of cerebrospinal fluid in the thecal sac. The traversing nerves are compressed at this level. There is a [id number] bilateral neural foraminal stenosis without neural impingement. L4-L5: There is symmetric moderate hypertrophy of ligamentum flavum, moderate bilateral facet osteoarthritis and borderline circumferentialdisc bulging. The AP diameter of thecal sac in midline is 8.9 mm suggestiveof borderline stenosis. There is mild bilateral lateral recess stenosis. No impingement on traversing nerves is identified. There is a moderate to severe left neural foraminal stenosis without causing visibleimpingement on exiting nerves. L5-S1: Tiny central posterior disc protrusion is superimposed onmoderate circumferential disc bulging. There is moderate to severe bilateralfacet osteoarthritis. There is moderate bilateral lateral recesses stenosis.No visible impingement on traversing S1 nerves in the lateral recesses is identified in supine position. There is moderate bilateral neuralforaminal stenosis. Impingement on exiting right L5 nerve in the foramen ispossible. IMPRESSION: 1. Stable lower lumbar facet osteoarthritis and multilevel spinalstenosis and neural foraminal stenosis. There is however, no visible neural impingement. See text. 2. Circumferential annular fissure of the entire L2-L3 annulus is newfrom the prior study, but is not associated with disc bulging or herniationof nucleus pulposus. 3. 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 > Interpreting Provider: Fab Alcantar MD on 07/21/2023 11:08 PM Gordy Yancey MD MR ORDERABLES * PROSTATE SPECIFIC ANTIGEN SCREEN (05/02/2023 9:56 AM CDT) Only the most recent of6 resultswithin the time period is included. PSA 1.7 0.0 - 4.0 ng/mL [facility] ACCOUNT BILL Comment: Sarah ECLIA methodology. . According to the [place] [employer], Serum PSA should decrease and [...] Resulting Agency Comment Lab Testing performed at: [facility] [address] [facility] [id number] Hazel Boyer MD LAB - CHEMISTRY JIM JENKINS [facility] ACCOUNT BILL [address] [place] [address] * SCAN ONLY HIS OPIOID MED AGREEMENT (04/28/2023) Only the most recent of2 resultswithin the time period is included. 04/28/2023 Narrative 04/28/2023 Ordered by an unspecified provider. Scanned Document SCANNING ONLY * IRON + TRANSFERRIN PANEL (10/27/2022 10:13 AM FINISHING ROOM OPERATOR) Iron 76 38 - 169 ug/dL [facility] ACCOUNT BILL Transferrin 286 177 - 329 mg/dL [facility] ACCOUNT BILL Comment:FASTING Blood BLOOD SPECIMEN / Unknown 10/27/2022 10:13 AM FINISHING ROOM OPERATOR 10/27/2022 Narrative Resulting Agency Comment Lab Testing performed at: [facility] [address] [facility] [id number] Hazel Boyer MD LAB - CHEMISTRY JIM JENKINS [facility] ACCOUNT BILL [address] [place] [address] * XR LUMBAR SPINE 4VW OR MORE (01/25/2022 2:29 PM CDT) Only the most recent of2 resultswithin the time period is included. Anatomical Region Laterality Modality Spine Radiographic Monica ging 01/25/2022 3:10 PM CDT Impressions 01/25/2022 3:12 PM CDT Lumbar spondylosis with sacroiliac joint ankylosis. Facet hypertrophy L5 C3-4 and L4-5 concerning for stenoses at those segments. Degenerative anterolisthesis of L3 upon L4 likely accentuates the canal narrowing. Widened L3-4 facet joints can be seen with facet joint laxity. Consider obtaining upright flexion and extension views *Reading Radiologist: Eldon Cortez on 01/25/2022 at 3:12 PM Narrative 01/25/2022 3:12 PM CDT Lumbar spine 5 views HISTORY: Spinal stenosis, low back pain Comparison January 07, 2019 Multiple bridging spurs L1-2 and L2-3. Dense atherosclerotic changes to the aorta. Degenerative retrolisthesis of L3 upon L4 with a posterior endplate spur extends back about 2.9 mm. That as well as the degree of facet hypertrophy raise the possibility of underlying spinal canal stenosis. Similar concern for spinal canal stenosis given the degree of facet hypertrophy L4-5 more so than L5-S1. The sacroiliac joints are fused. Suspect ankylosis the 5 1 facet joints. No presacral soft tissue swelling. Procedure Note Eldon Cortez MD - 01/25/2022 Lumbar spine 5 views HISTORY: Spinal stenosis, low back pain Comparison January 07, 2019 Multiple bridging spurs L1-2 and L2-3. Dense atherosclerotic changes to the aorta. Degenerative retrolisthesis of L3 upon L4 with a posterior endplate spur extends back about 2.9 mm. That as well as the degree of facet hypertrophy raise the possibility of underlying spinal canal stenosis. Similar concern for spinal canal stenosis given the degree of facet hypertrophy L4-5 more so than L5-S1. The sacroiliac joints are fused. Suspect ankylosis the 5 1 facet joints. No presacral soft tissue swelling. IMPRESSION Lumbar spondylosis with sacroiliac joint ankylosis. Facet hypertrophy L5 C3-4 and L4-5 concerning for stenoses at those segments. Degenerative anterolisthesis of L3 upon L4 likely accentuates the canal narrowing. Widened L3-4 facet joints can be seen with facet joint laxity. Consider obtaining upright flexion and extension views *Reading Radiologist: Eldon Cortez on 01/25/2022 at 3:12 PM Gordy Yancey MD DIAGNOSTIC IMAGING O RDERABLES * EYE EXAM (10/08/2021) Anatomical Region Laterality Modality Other 10/08/2021 Narrative 10/08/2021 Ordered by an unspecified provider. Scanned Document SCANNING ONLY * MRI BRAIN WO CONTRAST (07/16/2021 2:31 PM FINISHING ROOM OPERATOR) Anatomical Region Laterality Modality Head Magnetic Resonan ce 07/16/2021 3:23 PM FINISHING ROOM OPERATOR Narrative 07/16/2021 3:26 PM FINISHING ROOM OPERATOR MRI Brain Noncontrast Indication for examination: Cerebral infarction, dizziness and slurred speech.. Technique: Noncontrast T1 and T2-weighted axial, T1-weighted sagittal and T2-weighted coronal images of the brain are obtained. Comparison is made with a previous CT examination of 2006. Findings: No acute infarct or restricted diffusion is identified. There is relatively mild chronic small vessel ischemic change periventricular white matter bilaterally, most marked posteriorly. There is minimal involvement of the subcortical white matter. These findings are of questionable clinical significance. There is no regional or cortical infarct. There is relative sparing of the brainstem, basal ganglia and posterior fossa. There is no mass lesion or fluid collection. No parenchymal blood product deposition is observed. Ventricles and subarachnoid pathways are normal in size and configuration. CONCLUSION: Mild, chronic small vessel ischemic change as described. No acute infarct. No other focal findings. *Reading Radiologist: Deshawn Hoover on 07/16/2021 at 3:26 PM Procedure Note Deshawn Hoover MD - 07/16/2021 MRI Brain Noncontrast Indication for examination: Cerebral infarction, dizziness and slurred speech.. Technique: Noncontrast T1 and T2-weighted axial, T1-weighted sagittal and T2-weighted coronal images of the brain are obtained. Comparison is made with a previous CT examination of 2006. Findings: No acute infarct or restricted diffusion is identified. There is relatively mild chronic small vessel ischemic change periventricular white matter bilaterally, most marked posteriorly. There is minimal involvement of the subcortical white matter. These findings are of questionable clinical significance. There is no regional or cortical infarct. There is relative sparing of the brainstem, basal ganglia and posterior fossa. There is no mass lesion or fluid collection. No parenchymal blood product deposition is observed. Ventricles and subarachnoid pathways are normal in size and configuration. CONCLUSION: Mild, chronic small vessel ischemic change as described. No acute infarct. No other focal findings. *Reading Radiologist: Deshawn Hoover on 07/16/2021 at 3:26 PM Hazel Boyer MD MR ORDERABLES * US CAROTID COMPLETE DOPPLER (07/16/2021 1:48 PM FINISHING ROOM OPERATOR) Anatomical Region Laterality Modality Head Ultrasound 07/16/2021 2:18 PM FINISHING ROOM OPERATOR Narrative 07/16/2021 2:23 PM FINISHING ROOM OPERATOR Ultrasound carotid Doppler complete HISTORY: Type 2 diabetes, spinal stenosis, slurred speech, facial droop, TIA TECHNIQUE: Grayscale, pulse Doppler color, and color Doppler sonography of the carotid and vertebral artery systems. FINDINGS: Right proximal ICA, 152/36, left proximal ICA 145/40. Vertebral arteries-right, antegrade. Left, antegrade. Right ECA-319/15-70% or greater stenosis. There is right intimal thickening as well as both calcified and irregular plaque. Right proximal ICA stenosis approximated at 50-69%. There is left irregular calcified and heterogeneous plaque.. Left proximal ICA stenosis also approximated at 50-69%. *Reading Radiologist: Eldon Cortez on 07/16/2021 at 2:23 PM Procedure Note Eldon Cortez MD - 07/16/2021 Ultrasound carotid Doppler complete HISTORY: Type 2 diabetes, spinal stenosis, slurred speech, facial droop, TIA TECHNIQUE: Grayscale, pulse Doppler color, and color Doppler sonography of the carotid and vertebral artery systems. FINDINGS: Right proximal ICA, 152/36, left proximal ICA 145/40. Vertebral arteries-right, antegrade. Left, antegrade. Right ECA-319/15-70% or greater stenosis. There is right intimal thickening as well as both calcified and irregular plaque. Right proximal ICA stenosis approximated at 50-69%. There is left irregular calcified and heterogeneous plaque.. Left proximal ICA stenosis also approximated at 50-69%. *Reading Radiologist: Eldon Cortez on 07/16/2021 at 2:23 PM Hazel Boyer MD US ORDERABLES * VITAMIN D 25-HYDROXY (04/01/2021 10:12 AM CDT) Only the most recent of4 resultswithin the time period is included. Vitamin D, 25 Hydroxy 32.7 30.0 - 100.0 ng/mL [facility] ACCOUNT BILL Comment: Vitamin D deficiency has been defined by the [place] [employer] and an Endocrine Society practice guideline as a level of serum 25-OH vitamin D less than 20 ng/mL (1,2). The Endocrine Society went on to further define vitamin D insufficiency as a level between 21 and 29 ng/mL (2). 1. IOM ([place] [employer]). 2010. Dietary reference intakes for calcium and D. [place]: The National Academies Press. 2. Awais BELTRAN, Eagle GUERRERO, Giorgi ELENA, et al. Evaluation, treatment, and prevention of vitamin D deficiency: an Endocrine Society clinical practice guideline. JCEM. 2010; 96(7):1911-30. FASTING Blood BLOOD SPECIMEN / Unknown 04/01/2021 10:12 AM CDT 04/01/2021 Narrative Resulting Agency Comment Lab Testing performed at: [facility] [address] [facility] [id number] Hazel Boyer MD LAB - CHEMISTRY JIM JENKINS [facility] ACCOUNT BILL [address] [place] [address] * PATHOLOGY/CYTOLOGY REPORT ORDER (02/09/2021) Scanned Document LAB - PATHOLOGY/CYTO LOGY ORDERABLES * TSH (03/21/2019 10:09 AM CDT) Only the most recent of4 resultswithin the time period is included. TSH 1.590 0.450 - 4.500 uIU/mL [facility] INSURANCE BILL Comment:FASTING Blood BLOOD SPECIMEN / Unknown 03/21/2019 10:09 AM CDT 03/21/2019 Narrative Resulting Agency Comment Lab Testing performed at: [facility] [address] [facility] [phone] Hazel Boyer MD LAB - CHEMISTRY JIM JENKINS Performing Organization Address City/[facility]/ZIP Co de Phone Number [facility] INSURANCE BILL [address] [place] [address] * T4 FREE (11/29/2018 10:52 AM CDT) T4 Free 1.20 0.82 - 1.77 ng/dL [facility] ACCOUNT BILL Blood BLOOD SPECIMEN / Unknown 11/29/2018 10:52 AM CDT 11/29/2018 Narrative Resulting Agency Comment [facility] [address] [facility] [phone] Hazel Boyer MD LAB - CHEMISTRY JIM JENKINS [facility] ACCOUNT BILL [address] [place] [address] * CT CHEST ABDOMEN WO CONTRAST (11/01/2018 11:09 AM FINISHING ROOM OPERATOR) Anatomical Region Laterality Modality Chest, Abdomen Computed Tomogra phy 11/01/2018 12:4 5 PM FINISHING ROOM OPERATOR Impressions 11/01/2018 12:49 PM FINISHING ROOM OPERATOR No mass or malignant process identified within the chest, abdomen, or pelvis. Moderate pericardial effusion. Prostamegaly. Atherosclerosis. No aneurysm. Reading Radiologist: Deshawn Elkins MD on 11/01/2018 at 12:49 PM Narrative 11/01/2018 12:49 [address] FINISHING ROOM OPER[address] CT chest, abdomen, and pelvis without contrast History: Abnormal weight loss. COMPARISON: May 03, 2017. Technique: Axial images of the chest, abdomen and pelvis were obtained without contrast and reconstructions performed Findings: Chest: The lungs are clear. No suspicious pulmonary nodule or mass. The central airways are patent. No osteolytic or osteoblastic lesions seen in the bony thorax. No supraclavicular or axillary lymphadenopathy. No mediastinal or hilar lymphadenopathy. There is a moderate pericardial effusion. Plaque is noted in the coronary arteries and thoracic aorta. No pleural effusion seen. Abdomen and pelvis: No liver mass identified. The spleen is within normal limits and not enlarged. The stomach and duodenum are unremarkable. Pancreas is within normal limits. Gallbladder is absent. There is no biliary ductal dilatation. The adrenal glands and kidneys are unremarkable. No evidence of bowel obstruction, wall thickening, or inflammation. The appendix is within normal limits. No lymphadenopathy identified in the abdomen or pelvis. There is plaque in the aorta without aneurysm. Prostamegaly is noted. No acute osseous abnormality seen. Procedure Note Deshawn Elkins MD - 11/01/2018 CT chest, abdomen, and pelvis without contrast History: Abnormal weight loss. COMPARISON: May 03, 2017. Technique: Axial images of the chest, abdomen and pelvis were obtained without contrast and reconstructions performed Findings: Chest: The lungs are clear. No suspicious pulmonary nodule or mass. The central airways are patent. No osteolytic or osteoblastic lesions seen in the bony thorax. No supraclavicular or axillary lymphadenopathy. No mediastinal or hilar lymphadenopathy. There is a moderate pericardial effusion. Plaque is noted in the coronary arteries and thoracic aorta. No pleural effusion seen. Abdomen and pelvis: No liver mass identified. The spleen is within normal limits and not enlarged. The stomach and duodenum are unremarkable. Pancreas is within normal limits. Gallbladder is absent. There is no biliary ductal dilatation. The adrenal glands and kidneys are unremarkable. No evidence of bowel obstruction, wall thickening, or inflammation. The appendix is within normal limits. No lymphadenopathy identified in the abdomen or pelvis. There is plaque in the aorta without aneurysm. Prostamegaly is noted. No acute osseous abnormality seen. IMPRESSION No mass or malignant process identified within the chest, abdomen, or pelvis. Moderate pericardial effusion. Prostamegaly. Atherosclerosis. No aneurysm. Reading Radiologist: Deshawn Elkins MD on 11/01/2018 at 12:49 PM Hazel Boyer MD CT ORDERABLES * XR KNEE RIGHT 3VW (10/19/2018 9:32 AM FINISHING ROOM OPERATOR) Anatomical Region Laterality Modality Lower Extremity Computed Radiogr aphy Narrative 10/19/2018 10:48 AM FINISHING ROOM OPERATOR Aubrie Dupree 10/19/2018 10:48 AM Please see progress notes for result. Codey Ireland MD DIAGNOSTIC IMAGING O RDERABLES * NM GASTRIC EMPTYING (09/20/2018 2:03 PM FINISHING ROOM OPERATOR) Anatomical Region Laterality Modality Abdomen Nuclear Medicine 09/20/2018 2:30 PM FINISHING ROOM OPERATOR Impressions 09/20/2018 2:31 PM FINISHING ROOM OPERATOR Normal gastric emptying Reading Radiologist: Karol Santamaria MD on 09/20/2018 at 2:31 PM Narrative 09/20/2018 2:31 PM FINISHING ROOM OPERATOR Nuclear medicine gastric emptying study HISTORY: Diarrhea, weight loss TECHNIQUE: A standard meal labeled with 1 mCi technetium 99m sulfur colloid was ingested and planar images of the abdomen and pelvis were acquired every 15 minutes for 2 hours. FINDINGS: Initial images demonstrate a normal contour stomach. Activity is seen within the small bowel at 15 minutes. At one hour, a moderate amount of activity remains. At 2 hours, a small amount of activity remains. Quantitative analysis demonstrates a one hour gastric retention of 57% (normal less than 90%) and a 2 hour gastric retention of 21% (normal less than 60%). Procedure Note Karol Santamaria MD - 09/20/2018 Nuclear medicine gastric emptying study HISTORY: Diarrhea, weight loss TECHNIQUE: A standard meal labeled with 1 mCi technetium 99m sulfur colloid was ingested and planar images of the abdomen and pelvis were acquired every 15 minutes for 2 hours. FINDINGS: Initial images demonstrate a normal contour stomach. Activity is seen within the small bowel at 15 minutes. At one hour, a moderate amount of activity remains. At 2 hours, a small amount of activity remains. Quantitative analysis demonstrates a one hour gastric retention of 57% (normal less than 90%) and a 2 hour gastric retention of 21% (normal less than 60%). IMPRESSION Normal gastric emptying Reading Radiologist: Karol Santamaria MD on 09/20/2018 at 2:31 PM Negrito Reyes MD NM ORDERABLES * HELICOBACTER PYLORI UREASE (STL) (08/14/2018 3:10 PM FINISHING ROOM OPERATOR) Only the most recent of2 resultswithin the time period is included. Helicobacter pylori Urease Initial Negative Negative 08/15/2018 5:33 PM FINISHING ROOM OPERATOR [facility] Helicobacter pylori Urease Final Negative Negative 08/15/2018 5:33 PM FINISHING ROOM OPERATOR [facility] Comment:This is an appended report. These results have been appended to a previously preliminary verified report. Microbiology GASTRIC ANTRAL BIOPSY SPECIMEN / Unknown 08/14/2018 3:10 PM FINISHING ROOM OPERATOR 08/14/2018 4:47 PM FINISHING ROOM OPERATOR Negrito Reyes MD LAB - MICROBIOLOGY ORDERABLES [facility] [address] [place] [address] * GROSS + MICRO EXAM (STL) (08/14/2018 3:08 PM FINISHING ROOM OPERATOR) Only the most recent of3 resultswithin the time period is included. Case Report Surgical Pathology Report Case: [id number] Authorizing Provider: Negrito Reyes MD Collected: 08/14/2018 03:08 PM Ordering Location: [facility] Received: 08/15/2018 07:00 AM Pathologist: Sigrid Glaser MD Specimens: A) - Duodenal Biopsy B) - Polyp Colon 08/16/2018 8:38 AM FINISHING ROOM OPERATOR [facility] Final Diagnosis A. Duodenum, biopsy: -- Small intestinal mucosa with no significant pathologic abnormality B. Colon polyps, biopsy: -- Hyperplastic polyps 08/16/2018 8:38 AM [facility] Gross Description Two formalin-filled containers are received, each labeled with the patient's name. In the first container labeled, duodenal biopsy, are four pieces of llamas tissue range in size from 0.1 x 0.1 up to 0.2 x 0.2 cm. All stained and submitted in A1. In the second container labeled, colon polyp, are multiple pieces of llamas tissue range in size from less than 0.1 x 0.1 up to 0. 3 x 0.2 cm. All stained and submitted in B1. AB/na 08/16/2018 8:38 AM [facility] Disclaimer All histochemical and/or immunohistochemical results are interpreted with controls that demonstrate appropriate staining reactions before reporting results. Note on use of immunocytochemistry reagents: This test was developed and its performance characteristic determined by [facility], Department of Laboratory Medicine. It has not been cleared or approved by the U.S. Food and Drug Administration (FDA). The FDA has determined that such clearance or approval is not necessary. The test is used for clinical purpose. It should not be regarded as investigational or for research. This laboratory is certified to perform high complexity testing. 08/16/2018 8:38 AM [facility] Embedded Images 08/16/2018 8:38 AM [facility] Pathology/Cytology DUODENAL BIOPSY SPECIMEN / Unknown 08/14/2018 3:08 PM FINISHING ROOM OPERATOR 08/15/2018 7:00 AM FINISHING ROOM OPERATOR Miscellaneous samples (specimen) POLYP OF COLON / Unknown 08/14/2018 3:28 PM FINISHING ROOM OPERATOR 08/15/2018 7:00 AM FINISHING ROOM OPERATOR Negrito Reyes MD LAB - PATHOLOGY/CYT OLOGY ORDERABLES [facility] [address] [place] [address] * EGD (08/14/2018 2:37 PM FINISHING ROOM OPERATOR) Report Endoscopy POC __ _ Patient Name: Dina Ritter Procedure Date: 08/14/2018 2:37 PM Date of : 1960 Admit Type: Outpatient Age: 58 Gender: Male Attending MD: Negrito Reyes MD __ _ Procedure: Upper GI endoscopy Indications: Diarrhea, Early satiety, Weight loss Providers: Negrito Reyes MD (Doctor) Referring MD: Hazel Boyer MD (Referring MD) Medicines: Monitored Anesthesia Care Complications: No immediate complications. Estimated blood loss: None. __ _ Procedure: Pre-Anesthesia Assessment: - Prior to [...] by the physician, the nurse and the health therapist in the procedure room. Mental Status Examination: [...] patient was re-assessed after the procedure. After obtaining informed consent, the endoscope was passed under direct vision. Throughout the procedure, the patient's blood pressure, pulse, and oxygen saturations were monitored continuously. The Endoscope was introduced through the mouth, and advanced to the second part of duodenum. The upper GI endoscopy was accomplished without difficulty. The patient tolerated the procedure well. Findings: The gastroesophageal junction and examined esophagus were normal. Localized moderate inflammation characterized by erythema, friability and granularity was found in the gastric antrum. Biopsies were taken with a cold forceps for Helicobacter pylori testing using CLOtest. The cardia, gastric fundus and gastric body were normal. The duodenal bulb and second portion of the duodenum were normal. Biopsies were taken with a cold forceps for histology. __ _ Impression: - Normal gastroesophageal junction and esophagus. - Gastritis. Biopsied. - Normal cardia, gastric fundus and gastric body. - Normal duodenal bulb and second portion of the duodenum. Biopsied. Recommendation: - Await pathology results. - Perform a colonoscopy today. - If biopsies are negative, check gastric emptying study Procedure Code(s): --- Professional --- 34461, Esophagogastroduode noscopy, flexible, transoral; with biopsy, single or multiple --- Technical --- 62008, Esophagogastroduode noscopy, flexible, transoral; with biopsy, single or multiple Diagnosis Code(s): --- Professional --- K29.70, Gastritis, unspecified, without bleeding R19.7, Diarrhea, unspecified R68.81, Early satiety R63.4, Abnormal weight loss --- Technical --- K29.70, Gastritis, unspecified, without bleeding R19.7, Diarrhea, unspecified R68.81, Early satiety R63.4, Abnormal weight loss CPT copyright 2017 [employer]. All rights reserved. The codes documented in this report are preliminary and upon puller out review may be revised to meet current compliance requirements. Dr. Negrito Reyes MD ____ Negrito Reyes MD 08/14/2018 3:10:49 PM This report has been signed electronically. Number of Addenda: 0 Note Initiated On: 08/14/2018 2:37 PM [facility] 08/14/2018 2:37 PM FINISHING ROOM OPERATOR Negrito Reyes MD GI PROCEDURE ORDERA [facility] [place] [address] * ENDOSCOPY, COLON, SCREENING (08/14/2018 2:12 PM FINISHING ROOM OPERATOR) Report Endoscopy POC _ Patient Name: Dina Ritter Procedure Date: 08/14/2018 2:12 PM Date of : 1960 Admit Type: Outpatient Age: 58 Gender: Male Attending MD: Negrito Reyes MD _ Procedure: Colonoscopy Indications: Screening for colorectal malignant neoplasm, This is the patient's first colonoscopy Providers: Negrito Reyes MD (Doctor) Referring MD: Hazel Boyer MD [...] by the physician, the nurse and the health therapist in the procedure room. Mental Status Examination: [...] 4 weeks. Procedure Code(s): --- Professional --- 36247, Colonoscopy, flexible; with biopsy, single or multiple --- Technical --- 49447, Colonoscopy, flexible; with biopsy, single or multiple Diagnosis Code(s): --- Professional --- Z12.11, Encounter for screening for malignant neoplasm of colon K62.1, Rectal polyp D12.5, Benign neoplasm of sigmoid colon --- Technical --- Z12.11, Encounter for screening for malignant neoplasm of colon K62.1, Rectal polyp D12.5, Benign neoplasm of sigmoid colon CPT copyright 2017 [employer]. All rights reserved. The codes documented in this report are preliminary and upon puller out review may be revised to meet current compliance requirements. Dr. Negrito Reyes MD Negrito Reyes MD 08/14/2018 3:33:28 PM This report has been signed electronically. Number of Addenda: 0 Note Initiated On: 08/14/2018 2:12 PM [facility] 08/14/2018 2:12 PM FINISHING ROOM OPERATOR Negrito Reyes MD GI PROCEDURE ORDERA BLES Performing Organization Address City/[facility]/ZIP Co de Phone [place] [address] * HEPATITIS C ANTIBODY (05/31/2018 9:34 AM CDT) Hepatitis C Antibody Non Reactive Non Reactive [facility] ACCOUNT BILL Comment: Non Reactive - Antibodies to Hepatitis C virus (HCV) were no t detected, result does not exclude early acute HCV infection. FASTING Blood BLOOD SPECIMEN / Unknown 05/31/2018 9:34 AM CDT 05/31/2018 Narrative Resulting Agency Comment [facility] [address] [facility] [phone] Hazel Boyer MD LAB - CHEMISTRY ORDE GREGORY Performing Organization Address City/[facility] Co de Phone Number [facility] ACCOUNT BILL [address] [place] [address] * (ABNORMAL) MICROALB/CREAT RATIO URINE RANDOM PANEL (11/27/2017 10:31 AM CDT) Only the most recent of3 resultswithin the time period is included. Creatinine Urine 17 mg/dL [facility] ACCOUNT BILL Microalbumin Urine 1.0 mg/dL [facility] ACCOUNT BILL Microalbumin/Crea tinine Ratio 59(H) <30 mg/g [facility] ACCOUNT BILL Urine URINE SPECIMEN OBTAINED BY CLEAN CATCH PROCEDURE / Unknown 11/27/2017 10:31 AM CDT 11/27/2017 Narrative Resulting Agency Comment [facility] [place] [id number] Hazel Boyer MD LAB - URINE CHEMISTR Y ORDERABLES Performing Organization Address City/[facility]/ZIP Co de Phone Number [facility] ACCOUNT BILL [address] [place] [address] * XR SHOULDER 2+ VW RIGHT (06/13/2017 10:24 AM CDT) Only the most recent of2 resultswithin the time period is included. Anatomical Region Laterality Modality Upper Extremity Computed Radiogr aphy Narrative 06/13/2017 11:28 AM CDT Aubrie Dupree 06/13/2017 11:28 AM Please see progress notes for result. Codey Ireland MD DIAGNOSTIC IMAGING O RDERABLES * XR CLAVICLE RIGHT (05/16/2017 10:47 AM CDT) Anatomical Region Laterality Modality Upper Extremity, Chest Computed Radiography Narrative 05/16/2017 11:25 AM CDT Aubrie Dupree 05/16/2017 11:25 AM Please see progress notes for result. Codey Ireland MD DIAGNOSTIC IMAGING O RDERABLES * IMAGING/RADIOLOGY/XRAY RESULTS ORDER (05/10/2017 12:32 AM CDT) Anatomical Region Laterality Modality Other Narrative 05/10/2017 12:32 AM CDT Ordered by an unspecified provider. Scanned Document IMAGING * ECHOCARDIOGRAM 2D WITH DOPPLER (05/04/2017 10:53 AM CDT) Only the most recent of2 resultswithin the time period is included. 05/04/2017 10:5 3 AM CDT Narrative [facility] - 05/04/2017 4:[address] PM [address]T [address] [address] Transthoracic Echocardiogram 2D, M-mode, Doppler, and Color Doppler Patient: DINA RITTER MR number: [id number] Height: 72 in Weight: 250 lb BSA: 2.34 m Study date: 04-May-2017 : 1960 Age: 57 years Gender: Male Race: Allergies: NKA Diagnoses: R09.02 - Hypoxemia Reading Physician: Vanessa Dowling MD Referring Physician: Delmar Ovalle MD HYDROGRAPHIC SURVEYOR: Sheldon Paige [facility] Cardiology Group: [facility] Summary: - History: - [facility] room 213 @ 10:53 - Procedure information: - htn, high chol., dm, mi, cad - Left ventricle: - Systolic function was normal. Ejection fraction was estimated in the range of 55 % to 65 %. - There were no regional wall motion abnormalities. - Wall thickness was moderately increased. - Doppler parameters were consistent with abnormal left ventricular relaxation (grade 1 diastolic dysfunction). - Left atrium: - The atrium was mildly dilated. - Pericardium: - A small pericardial effusion was identified anterior and posterior to the heart. History: Prior history: [facility] room 213 @ 10:53 Procedure: The study was performed in the [facility]. This was a routine study. htn, high chol., dm, mi, cad The transthoracic approach was used. The study included complete 2D imaging, M-mode, complete spectral Doppler, and color Doppler. Systolic blood pressure was 193 mmHg. Diastolic blood pressure was 59 mmHg. This was a technically difficult study. Left ventricle: Size was normal. Systolic function was normal. Ejection fraction was estimated in the range of 55 % to 65 %. There were no regional wall motion abnormalities. Wall thickness was moderately increased. Doppler: Doppler parameters were consistent with abnormal left ventricular relaxation (grade 1 diastolic dysfunction). Aortic valve: The valve was trileaflet. Leaflets exhibited mild calcification and normal cuspal separation. Doppler: There was no stenosis. There was no regurgitation. Aorta: The root exhibited normal size. Mitral valve: Valve structure was normal. There was normal leaflet separation. Doppler: The transmitral velocity was within the normal range. There was no evidence for stenosis. There was no regurgitation. Left atrium: The atrium was mildly dilated. Right ventricle: The size was normal. Systolic function was normal. Wall thickness was normal. Pulmonic valve: Leaflets exhibited normal thickness, no calcification, and normal cuspal separation. Doppler: There was no regurgitation. Pulmonary artery: The size was normal. Doppler: Systolic pressure was within the normal range. Tricuspid valve: The valve structure was normal. There was normal leaflet separation. Doppler: The transtricuspid velocity was within the normal range. There was no evidence for tricuspid stenosis. There was no regurgitation. Right atrium: Size was normal. Pericardium: A small pericardial effusion was identified anterior and posterior to the heart. The pericardium was normal in appearance. System measurement tables CW PV Vmax: 1.1 m/s AV Vmax: 2 m/s AV maxP.6 mmHg PV maxP.9 mmHg TR Vmax: 2.7 m/s TR maxP.7 mmHg MM LA Diam: 4.6 cm Ao Diam: 3.5 cm IVSd: 1.9 cm LVIDd: 5.6 cm LVIDs: 4.1 cm LVPWd: 1.7 cm PW LVOT Vmax: 1.4 m/s Lateral E/e': 15.5 Septal E/e': 19.2 MV A Lizz: 0.8 m/s MV Dec Ida: 5.5 m/s2 MV E Lizz: 1.1 m/s MV E/A Ratio: 1.4 Prepared and signed by Vanessa Dowling MD Signed 04-May-2017 16:16:04 Procedure Note Unknown, Provider - 05/04/[address] [address] Transthoracic Echocardiogram 2D, M-mode, Doppler, and Color Doppler Patient: DINA RITTER MR number: [id number] Height: 72 in Weight: 250 lb BSA: 2.34 m Study date: 04-May-2017 : 1960 Age: 57 years Gender: Male Race: Allergies: NKA Diagnoses: R09.02 - Hypoxemia Reading Physician: Vanessa Dowling MD Referring Physician: Delmar Ovalle MD HYDROGRAPHIC SURVEYOR: Sheldon Paige [facility]iology Group: [facility] Summary: - History: - [facility] room 213 @ 10:53 - Procedure information: - htn, high chol., dm, mi, cad - Left ventricle: - Systolic function was normal. Ejection fraction was estimated in the range of 55 % to 65 %. - There were no regional wall motion abnormalities. - Wall thickness was moderately increased. - Doppler parameters were consistent with abnormal left ventricular relaxation (grade 1 diastolic dysfunction). - Left atrium: - The atrium was mildly dilated. - Pericardium: - A small pericardial effusion was identified anterior and posterior to the heart. History: Prior history: [facility] room 213 @ 10:53 Procedure: The study was performed in the [facility]. This was a routine study. htn, high chol., dm, mi, cad The transthoracic approach was used. The study included complete 2D imaging, M-mode, complete spectral Doppler, and color Doppler. Systolic blood pressure was 193 mmHg. Diastolic blood pressure was 59 mmHg. This was a technically difficult study. Left ventricle: Size was normal. Systolic function was normal. Ejection fraction was estimated in the range of 55 % to 65 %. There were no regional wall motion abnormalities. Wall thickness was moderately increased. Doppler: Doppler parameters were consistent with abnormal left ventricular relaxation (grade 1 diastolic dysfunction). Aortic valve: The valve was trileaflet. Leaflets exhibited mild calcification and normal cuspal separation. Doppler: There was no stenosis. There was no regurgitation. Aorta: The root exhibited normal size. Mitral valve: Valve structure was normal. There was normal leaflet separation. Doppler: The transmitral velocity was within the normal range. There was no evidence for stenosis. There was no regurgitation. Left atrium: The atrium was mildly dilated. Right ventricle: The size was normal. Systolic function was normal. Wall thickness was normal. Pulmonic valve: Leaflets exhibited normal thickness, no calcification, and normal cuspal separation. Doppler: There was no regurgitation. Pulmonary artery: The size was normal. Doppler: Systolic pressure was within the normal range. Tricuspid valve: The valve structure was normal. There was normal leaflet separation. Doppler: The transtricuspid velocity was within the normal range. There was no evidence for tricuspid stenosis. There was no regurgitation. Right atrium: Size was normal. Pericardium: A small pericardial effusion was identified anterior and posterior to the heart. The pericardium was normal in appearance. System measurement tables CW PV Vmax: 1.1 m/s AV Vmax: 2 m/s AV maxP.6 mmHg PV maxP.9 mmHg TR Vmax: 2.7 m/s TR maxP.7 mmHg MM LA Diam: 4.6 cm Ao Diam: 3.5 cm IVSd: 1.9 cm LVIDd: 5.6 cm LVIDs: 4.1 cm LVPWd: 1.7 cm PW LVOT Vmax: 1.4 m/s Lateral E/e': 15.5 Septal E/e': 19.2 MV A Lizz: 0.8 m/s MV Dec Ida: 5.5 m/s2 MV E Lizz: 1.1 m/s MV E/A Ratio: 1.4 Prepared and signed by Vanessa Dowling MD Signed 04-May-2017 16:16:04 Delmar Ovalle MD ECHO ORDERABLES [facility] * CT CHEST PE (05/03/2017 10:15 PM CDT) Anatomical Region Laterality Modality Chest Computed Tomogra phy 05/03/2017 10:2 2 PM CDT Impressions 05/03/2017 10:28 PM CDT Groundglass trace likely remote related to congestion given the cardiomegaly and pericardial effusion. No pulmonary embolus identified. Right lower lobe low-density opacity. This may were present pneumonitis aspiration or focal edema. Associated volume loss within the right lower lobe. Narrative 05/03/2017 10:[address] PE Protocol Clinical Indication: Hypoxemia. Recent shoulder surgery. Now short of breath Technique: The pulmonary embolus protocol was utilized. Axial CT images from the lung apices to the lung bases were obtained following Omnipaque 350 80cc intravenous contrast administration. Multiplanar maximum intensity projection reconstructions were created on an independent workstation. Findings: There is no dominant central or proximal order branch vessel pulmonary arterial tree filling defect to suggest embolus. No aortic contour abnormality. There is a prominent azygos vein right paratracheal artifactually given the appearance of a lymph node. No other hilar adenopathy. Coronary atherosclerosis. There is a small pericardial effusion. Right upper lobe granuloma Groundglass infiltrates to the lungs suggesting congestion. There is right lower lobe opacity consistent with likely a drowned lobe with associated atelectasis. I do not define a dominant central endobronchial lesion within the bronchus intermedius. Left base opacity consistent with atelectasis. The upper abdomen shows fluid distention of the stomach. Soft tissue gas right shoulder consistent with the recent surgery. Reconstructed images again shows no embolus. There is enlargement of the left ventricle. Long segment ossification of the anterior longitudinal edema. No thoracic compression deformity.. Procedure Note Eldon Cortez MD - 05/03/2017 CT PE Protocol Clinical Indication: Hypoxemia. Recent shoulder surgery. Now short of breath Technique: The pulmonary embolus protocol was utilized. Axial CT images from the lung apices to the lung bases were obtained following Omnipaque 350 80cc intravenous contrast administration. Multiplanar maximum intensity projection reconstructions were created on an independent workstation. Findings: There is no dominant central or proximal order branch vessel pulmonary arterial tree filling defect to suggest embolus. No aortic contour abnormality. There is a prominent azygos vein right paratracheal artifactually given the appearance of a lymph node. No other hilar adenopathy. Coronary atherosclerosis. There is a small pericardial effusion. Right upper lobe granuloma Groundglass infiltrates to the lungs suggesting congestion. There is right lower lobe opacity consistent with likely a drowned lobe with associated atelectasis. I do not define a dominant central endobronchial lesion within the bronchus intermedius. Left base opacity consistent with atelectasis. The upper abdomen shows fluid distention of the stomach. Soft tissue gas right shoulder consistent with the recent surgery. Reconstructed images again shows no embolus. There is enlargement of the left ventricle. Long segment ossification of the anterior longitudinal edema. No thoracic compression deformity.. IMPRESSION Groundglass trace likely remote related to congestion given the cardiomegaly and pericardial effusion. No pulmonary embolus identified. Right lower lobe low-density opacity. This may were present pneumonitis aspiration or focal edema. Associated volume loss within the right lower lobe. Hollis Arriaga LADDER OPERATOR-MANAGER ER CT ORDERABLES * XR CHEST 1VW PORTABLE (05/03/2017 7:33 PM CDT) Only the most recent of3 resultswithin the time period is included. Anatomical Region Laterality Modality Chest Radiographic Monica ging 05/03/2017 7:38 PM CDT Narrative 05/03/2017 7:39 PM CDT Portable Chest AP History: Hypoxic, shortness of breath Comparison: August 16, 2016 Findings: Nonstandard portable exam. The heart is larger than the prior exam. There is left ventricle enlargement. Interval elevation the right hemidiaphragm. The central vessels are less congested. There is right base vascular compression consistent with atelectasis. No pneumothorax. Multilevel thoracic spondylitic changes. After sclerotic aorta. Procedure Note Eldon Cortez MD - 05/03/2017 Portable Chest AP History: Hypoxic, shortness of breath Comparison: August 16, 2016 Findings: Nonstandard portable exam. The heart is larger than the prior exam. There is left ventricle enlargement. Interval elevation the right hemidiaphragm. The central vessels are less congested. There is right base vascular compression consistent with atelectasis. No pneumothorax. Multilevel thoracic spondylitic changes. After sclerotic aorta. Hollis Arriaga APRN-MANAGER ER DIAGNOSTIC IMAGIN G ORDERABLES * (ABNORMAL) D-DIMER (05/03/2017 7:31 PM CDT) D-Dimer 1.57(H) 0.17 - 0.5 mg/L FEU 05/03/2017 8:01 PM CDT [facility] Blood BLOOD SPECIMEN / Unknown Venipuncture / Unknown 05/03/2017 7:31 PM CDT 05/03/2017 7:47 PM CDT Narrative [facility] - 05/03/2017 8:01 PM CDT The [employer] D-Dimer assay is intended for use as an aid in diagnosis of venous thromboembolism [(VTE): deep vein thrombosis (DVT), pulmonary embolism (PE), and disseminated intravascular coagulation (DIC)], and has received U.S. Food and Drug Administration (FDA) approval to exclude VTE in patients with low or moderate pretest probability of PE or DVT (per Wells' rules). At a clinical cut-off value 0.50 mg/L FEU, the Negative Predictive Value of this assay is 99.8% for excluding PE and 100% for excluding DVT. A very low percentage of patients with VTE may yield D-Dimer results below the cut-off value. An elevated D-Dimer result has low specificity (40.4% for PE, 35.5% for DVT) and is a poor predictor of VTE. An elevated D-Dimer result may indicate DIC in the appropriate clinical setting. Results of this test should always be interpreted in conjunction with the patient's medical history, clinical presentation, and other findings. Hollis Arriaga APRN-MANAGER ER LAB - COAGULATION ORDERABLES [facility] [address] [place] [address] * NM MYOCARD PERFUSION SPECT STRESS AND REST (04/20/2017 12:21 PM CDT) Only the most recent of3 resultswithin the time period is included. Anatomical Region Laterality Modality Chest Nuclear Medicine 04/20/2017 12:2 2 PM CDT Impressions 04/20/2017 12:24 PM CDT 1. No evidence of pharmacologically induced reversible defect to suggest ischemia. 2. Mild global hypokinesis, with a composite left ventricular ejection fraction of 38 %. Narrative 04/20/2017 12:24 PM CDT MYOCARDIAL SPECT MULTI MYOCARDIAL PERFUSION WITH EJECTION FRACTION MYOCARDIAL PERFUSION WITH WALL MOTION INDICATION: Chest Pain RADIOPHARMACEUTICAL: 10 mCi of Tc99m Tetrofosmin at rest and 30mCi Tc99m Tetrofosmin at stress. 0.4 mg of Lexiscan given intravenously. TECHNIQUE: After the resting SPECT images were made, the patient was given the Lexiscan dose and the stress dose of tracer was given, and the patient was reimaged, using SPECT technique. FINDINGS: Stress and rest images show homogeneous uptake of radiotracer throughout the left ventricle. No significant fixed or reversible perfusion defects are seen. WALL MOTION ANALYSIS: 3-D reconstruction of the gated data shows the left ventricular ejection fraction to measure 38 %. There is mild global hypokinesis. Procedure Note Matt Horn MD - 04/20/2017 MYOCARDIAL SPECT MULTI MYOCARDIAL PERFUSION WITH EJECTION FRACTION MYOCARDIAL PERFUSION WITH WALL MOTION INDICATION: Chest Pain RADIOPHARMACEUTICAL: 10 mCi of Tc99m Tetrofosmin at rest and 30mCi Tc99m Tetrofosmin at stress. 0.4 mg of Lexiscan given intravenously. TECHNIQUE: After the resting SPECT images were made, the patient was given the Lexiscan dose and the stress dose of tracer was given, and the patient was reimaged, using SPECT technique. FINDINGS: Stress and rest images show homogeneous uptake of radiotracer throughout the left ventricle. No significant fixed or reversible perfusion defects are seen. WALL MOTION ANALYSIS: 3-D reconstruction of the gated data shows the left ventricular ejection fraction to measure 38 %. There is mild global hypokinesis. IMPRESSION 1. No evidence of pharmacologically induced reversible defect to suggest ischemia. 2. Mild global hypokinesis, with a composite left ventricular ejection fraction of 38 %. Vanessa Dowling MD NM ORDERABLES * STRESS TEST LEXISCAN (NUCLEAR) (04/20/2017 10:50 AM CDT) Only the most recent of2 resultswithin the time period is included. Stress Test Summary For full formatted report, please see the report link in the order. Acquisition Time: 2017-04-20 10:50:02 Total Exercise Time: 00:01:29 Test Indications: CARDIOMYOPATHY Medications: Protocol: LEXISCAN Max HR: 115 BPM 70% of Pred: 162 BPM Max BP: 250/120 mmHG Max Work Load: 1.0 METS Reason for Termination: Protocol Complete Resting ECG: Nonspecific ST Changes Functional Capacity: HR Response to Exercise: BP Resoonse to Exercise: Resting Hypertension with Exaggerated Response Chest Pain: No Chest Pain Arrhythmias: No Arrhythmias ST Changes: no significant st change Overall Impression: No ECG evidence of ischemia Findings to be correlated w/imaging report Diagnosis: Confirmed by VANESSA DOWLING MD ([id number]) on 04/20/2017 12:10:30 PM Attending Physician: Referred By: VANESSA DOWLING Overread By: VANESSA DOWLING MD [facility] STRESS 04/20/2017 10:5 0 AM CDT 04/20/2017 12:10 PM CDT Vanessa Dowling MD CARDIAC SERVICES ORD ERABLES HC STRESS * MRI SHOULDER WO CONT RIGHT (04/06/2017 9:35 AM CDT) Anatomical Region Laterality Modality Magnetic Resonan ce Angiography 04/06/2017 10:2 9 AM CDT Narrative 04/06/2017 10:32 AM CDT Examination: MRI right shoulder. Indication for examination: Right shoulder pain and limitation of range of motion. Noncontrast T1 and T2-weighted sagittal and coronal with T2-weighted axial images of the right shoulder are obtained. Comparison is made with prior plain films. There is very prominent hypertrophic and degenerative change acromioclavicular joint. This results in extrinsic encroachment supraspinatus muscle and tendon with probable impingement. There is thickening and inhomogeneous signal intensity supraspinatus tendon representing tendinosis. No focal tear identified. Rotator cuff is otherwise intact. Rotator cuff volume appears maintained.. There is thickening and inhomogeneous signal intensity proximal aspect tendon long head of biceps representing tendinosis, chronic partial tear or a combination thereof. There is degenerative change with degenerative tear superior glenoid labrum. No other glenoid labral abnormality identified. There is a small glenohumeral joint effusion. No focal articular cartilage defect identified. No fracture or acute bone marrow edema. No soft tissue mass. CONCLUSION: Prominent hypertrophic and degenerative change acromioclavicular joint, with supraspinatus muscle and tendon encroachment and impingement. Supraspinatus tendinosis. No discrete rotator cuff tear identified. Degenerative change with degenerative tear superior glenoid labrum. This is associated with degenerative change and chronic partial tear proximal aspect tendon long head biceps. Small glenohumeral joint effusion. No fracture or acute bone marrow edema. No gross articular cartilage defect identified. Procedure Note Deshawn Hoover MD - 04/06/2017 Examination: MRI right shoulder. Indication for examination: Right shoulder pain and limitation of range of motion. Noncontrast T1 and T2-weighted sagittal and coronal with T2-weighted axial images of the right shoulder are obtained. Comparison is made with prior plain films. There is very prominent hypertrophic and degenerative change acromioclavicular joint. This results in extrinsic encroachment supraspinatus muscle and tendon with probable impingement. There is thickening and inhomogeneous signal intensity supraspinatus tendon representing tendinosis. No focal tear identified. Rotator cuff is otherwise intact. Rotator cuff volume appears maintained.. There is thickening and inhomogeneous signal intensity proximal aspect tendon long head of biceps representing tendinosis, chronic partial tear or a combination thereof. There is degenerative change with degenerative tear superior glenoid labrum. No other glenoid labral abnormality identified. There is a small glenohumeral joint effusion. No focal articular cartilage defect identified. No fracture or acute bone marrow edema. No soft tissue mass. CONCLUSION: Prominent hypertrophic and degenerative change acromioclavicular joint, with supraspinatus muscle and tendon encroachment and impingement. Supraspinatus tendinosis. No discrete rotator cuff tear identified. Degenerative change with degenerative tear superior glenoid labrum. This is associated with degenerative change and chronic partial tear proximal aspect tendon long head biceps. Small glenohumeral joint effusion. No fracture or acute bone marrow edema. No gross articular cartilage defect identified. Codey Ireland MD MR ORDERABLES * IP CONSULT TO CARDIOLOGY (08/17/2016 3:20 PM FINISHING ROOM OPERATOR) Narrative Vanessa Dwoling MD - 08/17/2016 3:20 PM FINISHING ROOM OPERATOR Vanessa Dowling MD 08/17/2016 3:20 PM Cardiology Consultation Note Reason for Consultation: Hx CAD with stents S/p lap choley with pulmonary edema History of Present Illness: The patient is a very pleasant 56 y.o. male with a history including mild ischemic cardiomyopathy, CAD (BMS to prox LAD in 2001 and occluded RCA), hypertension, diabetes, former smoker who was scheduled and underwent an elective lap cholecystectomy with Dr Sotelo yesterday and scheduled to discharge same day. Pt had elevated BPs as high as 247/92 while in PACU, associated with nonproductive cough and dyspnea. HAd been given IVF perioperatively, but amount not clear from chart. CXR showed interstitial edema. After admitted to floor required PRN IV hydralazine. BP acceptable today. Received usual antihypertensives today. Pt denies chest pain, palpitations, dizziness, SOB currently, n/v. Pt states he has redness/warmth to face and bilaterally from hands to elbows. Pt denies smoking cigarettes/marijuana, drinking alcohol, or using illicit drugs. Pt states he is compliant with his current home medications and has not added any new medications or supplements to his regimen. Labs today: Mg 1.3 Trop .045 Cardiac Hx: Echo 07/08/16 EF 55-65%; grade 1 diastolic dysfunction; small pericardial effusion anterior and posterior Stress 01/15 Negative Stress 04/15 Negative Tele: SR rate 80-90s BP's: 160s / 70s Family History: Father--CABG age 80 Mother--AR and CABG age 70 Old records reviewed. Readmission Risk Score: If there is no score indicated, this patient has yet to be assessed for Readmission Risk. . If the patient has been assessed, the score is: Past Medical History Diagnosis Date Anxiety Arthritis Atherosclerosis of coronary artery 2001 STENT X1 Coronary artery disease Diabetes GERD (gastroesophageal reflux disease) Hypercholesteremia Hypertension AR (myocardial infarction) Past Surgical History Procedure Laterality Date Angioplasty Carpal tunnel surgery Arthroplasty PT DENIES THIS TOTAL JOINT SURGERY Other surgery hematoma left thigh removed Other surgery pt fell two and half stories and had wrists, hip, arm and neck surgeries; reconstructions Shoulder arthroscopy veronique rotator cuff repair Endoscopy, upper 07/11/2016 ESOPHAGOGASTRODUODENOSCOPY (EGD) Coronary stent placement 2001 Cholecystectomy, laparoscopic 08/16/2016 Prescriptions Prior to Admission Medication Sig Dispense Refill HYDROcodone-acetaminophen (NORCO) 10-325 MG tablet Take 1 Tab by mouth every 6 hours as needed for Pain Earliest Fill Date: 08/15/16 60 Tab 0 carvedilol (COREG) 6.25 MG tablet TAKE 1 TABLET TWICE A DAY WITH MORNING AND EVENING MEALS 180 Tab 1 metFORMIN (GLUCOPHAGE) 500 MG tablet TAKE 1 TABLET TWICE A DAY WITH MORNING AND EVENING MEAL 180 Tab 1 cloNIDine (CATAPRES) 0.2 MG tablet TAKE 1 TABLET TWICE A DAY 180 Tab 1 acetaminophen (TYLENOL) 325 MG tablet Take 2 Tabs by mouth every 4 hours as needed for Fever Maximum allowable Acetaminophen amount = 4 Grams (4000 mg) / 24 hours. aspirin (ASPIRIN) 81 MG chew tablet Take 1 Tab by mouth once daily omeprazole (PRILOSEC) 40 MG capsule Take 1 Cap by mouth daily before breakfast 30 Cap 0 lisinopril (PRINIVIL; ZESTRIL) 40 MG tablet TAKE 1 TABLET DAILY 90 Tab 1 simvastatin (ZOCOR) 80 MG tablet TAKE 1 TABLET DAILY 90 Tab 1 fenofibrate micronized (LOFIBRA) 200 MG capsule TAKE 1 CAPSULE DAILY WITH LARGEST MEAL OF THE DAY 90 Cap 2 allopurinol (ZYLOPRIM) 300 MG tablet Take 1 Tab by mouth once daily 90 Tab 1 hydrALAZINE (APRESOLINE) 50 MG tablet 1 Tab 4 times daily 360 Tab 1 carisoprodol (SOMA) 350 MG tablet TAKE 1 TABLET BY MOUTH ONCE NIGHTLY NEEDED 30 Tab 0 No Known Allergies Social History: History Substance Use Topics Smoking status: Former Smoker Packs/day: 1.00 Years: 25.00 Quit date: 04/17/2002 Smokeless tobacco: Never Used Alcohol use: Yes Comment: occasional Family History: Family History Problem Relation Age of Onset Coronary Artery Disease Mother Diabetes Mother Hypertension Mother Arthritis-rheumatoid Father Coronary Artery Disease Father Heart Failure Father Hypertension Father Diabetes Sister Hypertension Sister Review of Symptoms: Constitutional: Negative for fever, chills, malaise/fatigue and diaphoresis. Psychiatric: Negative for depression and anxiety. Skin: Negative for rash and itching. HENT: Negative for headaches, lightheadedness, and congestion. Negative for vertigo. Eyes: Negative for blurred vision and itching. Cardiovascular: Negative for chest pain, Negative for palpitations and syncope. Respiratory: Negative for sputum production. Negative for shortness of breath. Gastrointestinal: Negative for nausea, vomiting, abdominal pain and diarrhea. Musculoskeletal: Negative for muscle weakness, extremity redness or swelling. Neurological: Negative for dizziness, focal weakness, tremors and loss of consciousness. Physical Exam: BP 165/76 Pulse 81 Temp 98.2 F Resp 18 Wt 241 lb 6.5 oz (109.5 kg) BMI 32.74 kg/m2 General: Well developed, well nourished, in no acute distress, oriented to person, place, and time Skin: Warm and dry, no jaundice Head: Normocephalic, oral mucosa and conjunctivae normal Eyes: Pupils equal, no xanthelasma Neck: No thyromegaly or bruits. Carotid pulses 2+ Lungs: Clear to auscultation and percussion. Respirations unlabored Cardiac: PMI normal. JVP normal. S1 normal, S2 normal, no murmur, no gallop or rub Abd: Soft, nontender, BS active, no hepatosplenomegaly or masses, no abdominal bruit or enlarged aortic pulsation Extremities: No clubbing, cyanosis. No edema. Femoral pulses 2+. Pedal pulses 2+ Musculoskeletal: Muscle strength normal. No scoliosis. Neurologic: Moves extremities equally. Extraocular muscles intact. Mood not depressed Cardiographics: EC07/07/16 Normal sinus rhythm Possible Left atrial enlargement ST & T wave abnormality, consider lateral ischemia Prolonged QT Abnormal ECG When compared with ECG of 17-APR-2012 09:32, Nonspecific T wave abnormality, improved in Inferior leads T wave inversion now evident in Lateral leads Echocardiogram 07/08/16 Left ventricle: - Systolic function was normal. Ejection fraction was estimated in the range of 55 % to 65 %. - There were no regional wall motion abnormalities. - Wall thickness was moderately increased. - Doppler parameters were consistent with abnormal left ventricular relaxation (grade 1 diastolic dysfunction). - Left atrium: - The atrium was mildly dilated. - Pericardium: - A small pericardial effusion was identified anterior and posterior to the heart. Stress test: 01/08/14 Opinion: 1. Myocardial Perfusion: Normal rest and stress images. 2. Left ventricle: Normal size, wall thickness and lower limit of normal systolic function (post-stress ejection fraction is 47%). Stress test 04/17/12 IMPRESSION 1. No evidence of pharmacologically induced reversible defect to suggest ischemia. 2. Normal left ventricle wall motion, with a composite left ventricular ejection fraction of 47 %. My review of labs, imaging, notes and other tests is significant for Recent Labs Component Name 08/16/16 1852 07/09/16 0525 07/08/16 1644 WBC 13.3* 5.9 8.0 HGB 14.8 12.7 12.8 HCT 43.6 35.5 37.2 PLTCOUNT 169 124* 141* Recent Labs Component Name 08/16/16 1852 07/07/16 1122 SODIUM 138 134* POTASSIUM 3.7 4.4 CHLORIDE 101 99 CO2 25 27 BUN 14 11 CREATININE 0.96 0.81 GLUCOSE 297* 203* CALCIUM 8.7 8.8 Recent Labs Component Name 08/16/16 18507/07/16 1659 07/07/16 1427 TROPONIN 0.045 0.093* 0.096* Recent Labs Component Name 08/16/16 185 TSH 1.000 Recent Labs Component Name 08/16/16 1852 MAGMGDL 1.3* Recent Labs Component Name 07/07/16 1122 ALBUMIN 3.9 ALKPHOS 87 ALT 22 AST 19 TBIL 0.5 TPROT 8.4* CXR (reviewed by me): Mild interstitial pulmonary edema Assessment: 1. Acute diastolic heart failure. Secondary to moderate LVH, IVF administration, transient severe HTN. Now resolved. 2. S/P lap cholecystectomy 3. HTN, now better controlled 4. LV diastolic dysfunction 5. Obesity 6. Stable CAD, s/p BMS to proximal LAD in 2001 7. DM Plan: 1. Agree with resumption of home medicines. 2. Low sodium diet. 3. OK to discharge from my standpoint. I appreciate the opportunity to participate in the care of this very pleasant patient. We will continue to follow with you. ,Vanessa Dowling MD Procedure Note Vanessa Dowling MD - 08/17/2016 8:22 AM CST Cardiology Consultation Note Reason for Consultation: Hx CAD with stents S/p lap choley with pulmonary edema History of Present Illness: The patient is a very pleasant 56 y.o. male with a history including mildischemic cardiomyopathy, CAD (BMS to prox LAD in 2001 and occluded RCA),hypertension, diabetes, former smoker who was scheduled and underwent anelective lap cholecystectomy with Dr Sotelo yesterday and scheduled todischarge same day. Pt had elevated BPs as high as 247/92 while in PACU,associated with nonproductive cough and dyspnea. HAd been given IVFperioperatively, but amount not clear from chart. CXR showed interstitialedema. After admitted to floor required PRN IV hydralazine. BP acceptabletoday. Received usual antihypertensives today. Pt denies chest pain, palpitations, dizziness, SOB currently, n/v. Ptstates he has redness/warmth to face and bilaterally from hands to elbows.Pt denies smoking cigarettes/marijuana, drinking alcohol, or using illicitdrugs. Pt states he is compliant with his current home medications and hasnot added any new medications or supplements to his regimen. Labs today: Mg 1.3 Trop .045 Cardiac Hx: Echo 07/08/16 EF 55-65%; grade 1 diastolic dysfunction; small pericardialeffusion anterior and posterior Stress 01/15 Negative Stress 04/15 Negative Tele: SR rate 80-90s BP's: 160s / 70s Family History: Father--CABG age 80 Mother--AR and CABG age 70 Old records reviewed. Readmission Risk Score: If there is no score indicated, this patient hasyet to be assessed for Readmission Risk. . If the patient has beenassessed, the score is: Past Medical History Diagnosis Date Anxiety Arthritis Atherosclerosis of coronary artery 2001 STENT X1 Coronary artery disease Diabetes GERD (gastroesophageal reflux disease) Hypercholesteremia Hypertension AR (myocardial infarction) Past Surgical History Procedure Laterality Date Angioplasty Carpal tunnel surgery Arthroplasty PT DENIES THIS TOTAL JOINT SURGERY Other surgery hematoma left thigh removed Other surgery pt fell two and half stories and had wrists, hip, arm and necksurgeries; reconstructions Shoulder arthroscopy veronique rotator cuff repair Endoscopy, upper 07/11/2016 ESOPHAGOGASTRODUODENOSCOPY (EGD) Coronary stent placement 2001 Cholecystectomy, laparoscopic 08/16/2016 Prescriptions Prior to Admission Medication Sig Dispense Refill HYDROcodone-acetaminophen (NORCO) 10-325 MG tablet Take 1 Tab by mouthevery 6 hours as needed for Pain Earliest Fill Date: 08/15/16 60 Tab 0 carvedilol (COREG) 6.25 MG tablet TAKE 1 TABLET TWICE A DAY WITH MORNINGAND EVENING MEALS 180 Tab 1 metFORMIN (GLUCOPHAGE) 500 MG tablet TAKE 1 TABLET TWICE A DAY WITHMORNING AND EVENING MEAL 180 Tab 1 cloNIDine (CATAPRES) 0.2 MG tablet TAKE 1 TABLET TWICE A DAY 180 Tab 1 acetaminophen (TYLENOL) 325 MG tablet Take 2 Tabs by mouth every 4 hoursas needed for Fever Maximum allowable Acetaminophen amount = 4 Grams (4000mg) / 24 hours. aspirin (ASPIRIN) 81 MG chew tablet Take 1 Tab by mouth once daily omeprazole (PRILOSEC) 40 MG capsule Take 1 Cap by mouth daily beforebreakfast 30 Cap 0 lisinopril (PRINIVIL; ZESTRIL) 40 MG tablet TAKE 1 TABLET DAILY 90 Tab 1 simvastatin (ZOCOR) 80 MG tablet TAKE 1 TABLET DAILY 90 Tab 1 fenofibrate micronized (LOFIBRA) 200 MG capsule TAKE 1 CAPSULE DAILYWITH LARGEST MEAL OF THE DAY 90 Cap 2 allopurinol (ZYLOPRIM) 300 MG tablet Take 1 Tab by mouth once daily 90Tab 1 hydrALAZINE (APRESOLINE) 50 MG tablet 1 Tab 4 times daily 360 Tab 1 carisoprodol (SOMA) 350 MG tablet TAKE 1 TABLET BY MOUTH ONCE NIGHTLY ASNEEDED 30 Tab 0 No Known Allergies Social History: History Substance Use Topics Smoking status: Former Smoker Packs/day: 1.00 Years: 25.00 Quit date: 04/17/2002 Smokeless tobacco: Never Used Alcohol use: Yes Comment: occasional Family History: Family History Problem Relation Age of Onset Coronary Artery Disease Mother Diabetes Mother Hypertension Mother Arthritis-rheumatoid Father Coronary Artery Disease Father Heart Failure Father Hypertension Father Diabetes Sister Hypertension Sister Review of Symptoms: Constitutional: Negative for fever, chills, malaise/fatigue anddiaphoresis. Psychiatric: Negative for depression and anxiety. Skin: Negative for rash and itching. HENT: Negative for headaches, lightheadedness, and congestion. Negativefor vertigo. Eyes: Negative for blurred vision and itching. Cardiovascular: Negative for chest pain, Negative for palpitations andsyncope. Respiratory: Negative for sputum production. Negative for shortness ofbreath. Gastrointestinal: Negative for nausea, vomiting, abdominal pain anddiarrhea. Musculoskeletal: Negative for muscle weakness, extremity redness orswelling. Neurological: Negative for dizziness, focal weakness, tremors and loss ofconsciousness. Physical Exam: BP 165/76 Pulse 81 Temp 98.2 F Resp 18 Wt 241 lb 6.5 oz (109.5 kg)BMI 32.74 kg/m2 General: Well developed, well nourished, in no acute distress, orientedto person, place, and time Skin: Warm and dry, no jaundice Head: Normocephalic, oral mucosa and conjunctivae normal Eyes: Pupils equal, no xanthelasma Neck: No thyromegaly or bruits. Carotid pulses 2+ Lungs: Clear to auscultation and percussion. Respirations unlabored Cardiac: PMI normal. JVP normal. S1 normal, S2 normal, no murmur, nogallop or rub Abd: Soft, nontender, BS active, no hepatosplenomegaly or masses, noabdominal bruit or enlarged aortic pulsation Extremities: No clubbing, cyanosis. No edema. Femoral pulses 2+. Pedalpulses 2+ Musculoskeletal: Muscle strength normal. No scoliosis. Neurologic: Moves extremities equally. Extraocular muscles intact. Moodnot depressed Cardiographics: EC07/07/16 Normal sinus rhythm Possible Left atrial enlargement ST & T wave abnormality, consider lateral ischemia Prolonged QT Abnormal ECG When compared with ECG of 17-APR-2012 09:32, Nonspecific T wave abnormality, improved in Inferior leads T wave inversion now evident in Lateral leads Echocardiogram 07/08/16 Left ventricle: - Systolic function was normal. Ejection fraction was estimated in the range of 55 % to 65 %. - There were no regional wall motion abnormalities. - Wall thickness was moderately increased. - Doppler parameters were consistent with abnormal left ventricular relaxation (grade 1 diastolic dysfunction). - Left atrium: - The atrium was mildly dilated. - Pericardium: - A small pericardial effusion was identified anterior and posterior to the heart. Stress test: 01/08/14 Opinion: 1. Myocardial Perfusion: Normal rest and stress images. 2. Left ventricle: Normal size, wall thickness and lower limit of normal systolic function (post-stress ejection fraction is 47%). Stress test 04/17/12 IMPRESSION 1. No evidence of pharmacologically induced reversible defect to suggest ischemia. 2. Normal left ventricle wall motion, with a composite left ventricular ejection fraction of 47 %. My review of labs, imaging, notes and other tests is significant for Recent Labs Component Name 08/16/16 3782 07/09/16 0525 07/08/16 1644 WBC 13.3* 5.9 8.0 HGB 14.8 12.7 12.8 HCT 43.6 35.5 37.2 PLTCOUNT 169 124* 141* Recent Labs Component Name 08/16/16 1852 07/07/16 1122 SODIUM 138 134* POTASSIUM 3.7 4.4 CHLORIDE 101 99 CO2 25 27 BUN 14 11 CREATININE 0.96 0.81 GLUCOSE 297* 203* CALCIUM 8.7 8.8 Recent Labs Component Name 08/16/16 1852 07/07/16 1659 07/07/16 1427 TROPONIN 0.045 0.093* 0.096* Recent Labs Component Name 08/16/16 1852 TSH 1.000 Recent Labs Component Name 08/16/16 1852 MAGMGDL 1.3* Recent Labs Component Name 07/07/16 1122 ALBUMIN 3.9 ALKPHOS 87 ALT 22 AST 19 TBIL 0.5 TPROT 8.4* CXR (reviewed by me): Mild interstitial pulmonary edema Assessment: 1. Acute diastolic heart failure. Secondary to moderate LVH, IVFadministration, transient severe HTN. Now resolved. 2. S/P lap cholecystectomy 3. HTN, now better controlled 4. LV diastolic dysfunction 5. Obesity 6. Stable CAD, s/p BMS to proximal LAD in 2001 7. DM Plan: 1. Agree with resumption of home medicines. 2. Low sodium diet. 3. OK to discharge from my standpoint. I appreciate the opportunity to participate in the care of this verypleasant patient. We will continue to follow with you. ,Vanessa Dowling MD Jeronimo Sotelo MD INPATIENT CONSUL T ORDERABLES * TROPONIN I (08/16/2016 6:52 PM FINISHING ROOM OPERATOR) Only the most recent of4 resultswithin the time period is included. Troponin I 0.045 0.000 - 0.049 ng/mL 08/16/2016 7:39 PM FINISHING ROOM OPERATOR [facility] Blood SERUM OR PLASMA SPECIMEN / Unknown 08/16/2016 6:52 PM FINISHING ROOM OPERATOR 08/16/2016 7:20 PM FINISHING ROOM OPERATOR Narrative [facility] - 08/16/2016 7:39 PM FINISHING ROOM OPERATOR Note: Diagnosis of myocardial infarction requires symptoms of ischemia or EKG changes of ischemia and Troponin I >99th of normal (0.05 ng/mL). Troponin should be drawn on initial assessment and 3-6 hours later as clinically indicated. Any condition resulting in myocardial cell damage can increase cardiac troponin levels. In addition to myocardial infarction, these include but are not limited to congestive heart failure (CHF), arrhythmia, myocarditis, and non-cardiac related causes such as pulmonary embolism, renal failure and sepsis. Diandra Smith MD LAB - CHEMISTRY O RDERABLES Performing Organization Address [facility] Co de Phone Number [facility] [phone] [place] [phone] * PHOSPHORUS BLOOD (08/16/2016 6:52 PM FINISHING ROOM OPERATOR) Phosphorus 2.9 2.5 - 4.9 mg/dL 08/16/2016 7:17 PM FINISHING ROOM OPERATOR [facility] Blood BLOOD SPECIMEN / Unknown 08/16/2016 6:52 PM FINISHING ROOM OPERATOR 08/16/2016 6:52 PM FINISHING ROOM OPERATOR Diandra Smiht MD LAB - CHEMISTRY O RDERABLES Performing Organization Address [facility] de Phone Number [facility] [phone] [place] [phone] * (ABNORMAL) MAGNESIUM BLOOD (08/16/2016 6:52 PM FINISHING ROOM OPERATOR) Magnesium 1.3(L) 1.6 - 2.6 mg/dL 08/16/2016 7:13 PM FINISHING ROOM OPERATOR [facility] Blood BLOOD SPECIMEN / Unknown 08/16/2016 6:52 PM FINISHING ROOM OPERATOR 08/16/2016 6:52 PM FINISHING ROOM OPERATOR Diandra Smith MD LAB - CHEMISTRY O RDERABLES Performing Organization Address [facility] de Phone Number [facility] [phone] [place] [phone] * NM HEPATOBILIARY WITH EF (07/19/2016 11:53 AM FINISHING ROOM OPERATOR) Anatomical Region Laterality Modality Abdomen Nuclear Medicine 07/19/2016 12:0 4 PM FINISHING ROOM OPERATOR Impressions 07/19/2016 12:05 PM FINISHING ROOM OPERATOR 1. NO EVIDENCE OF CYSTIC OR COMMON BILE DUCT OBSTRUCTION. 2. NO SCINTIGRAPHIC EVIDENCE OF ACUTE CHOLECYSTITIS. 3. 19 % GALLBLADDER EJECTION FRACTION. Narrative 07/19/2016 12:05 PM FINISHING ROOM OPERATOR HEPATOBILIARY IMAGING WITH EJECTION FRACTION DETERMINATION INDICATION: Abdominal pain. RADIOPHARMACEUTICAL: 5.3 mCi of Tc 99m Choletec, intravenously. PROVOCATIVE AGENT: 2.2 mcg of cholecystokinin. FINDINGS: Images made after the administration of radiopharmaceutical show prompt clearance of blood pool activity. There is rapid conjugation and excretion of the tracer, with activity being seen in the common bile duct on the 10 minute image. Subsequent images show progressive accumulation of tracer within the gallbladder. There is passage into the small bowel, confirming common bile duct patency, as well. Time activity curve determinations made after administration of the cholecystokinin show a maximum ejection fraction of 19% at 13 minutes following the CCK infusion. Some authors report a normal value as being greater than 35%. Procedure Note Karol Santamaria MD - 07/19/2016 HEPATOBILIARY IMAGING WITH EJECTION FRACTION DETERMINATION INDICATION: Abdominal pain. RADIOPHARMACEUTICAL: 5.3 mCi of Tc 99m Choletec, intravenously. PROVOCATIVE AGENT: 2.2 mcg of cholecystokinin. FINDINGS: Images made after the administration of radiopharmaceutical show prompt clearance of blood pool activity. There is rapid conjugation and excretion of the tracer, with activity being seen in the common bile duct on the 10 minute image. Subsequent images show progressive accumulation of tracer within the gallbladder. There is passage into the small bowel, confirming common bile duct patency, as well. Time activity curve determinations made after administration of the cholecystokinin show a maximum ejection fraction of 19% at 13 minutes following the CCK infusion. Some authors report a normal value as being greater than 35%. IMPRESSION 1. NO EVIDENCE OF CYSTIC OR COMMON BILE DUCT OBSTRUCTION. 2. NO SCINTIGRAPHIC EVIDENCE OF ACUTE CHOLECYSTITIS. 3. 19 % GALLBLADDER EJECTION FRACTION. Negrito Reyes MD NM ORDERABLES * EGD (07/11/2016 2:14 PM FINISHING ROOM OPERATOR) Report Endoscopy POC _ Patient Name: Dina Ritter Procedure Date: 07/11/2016 2:14 PM Date of : 1960 Admit Type: Outpatient Age: 56 Gender: Male Attending MD: Negrito Reyes MD _ Procedure: Upper GI endoscopy Indications: Epigastric abdominal pain, Abdominal pain in the right upper quadrant, Dysphagia, Odynophagia Providers: Negrito Reyes MD (Doctor) Referring MD: Hazel Boyer MD [...] by the physician, the nurse and the health therapist in the procedure room. Mental Status Examination: alert and oriented. Airway Examination: normal oropharyngeal airway and neck mobility. Respiratory Examination: clear to auscultation. CV Examination: normal. Prophylactic Antibiotics: The patient does not require prophylactic antibiotics. Prior Anticoagulants: The patient has taken aspirin, last dose was day of procedure. ASA Grade Assessment: III - A [...] patient was re-assessed after the procedure. After obtaining informed consent, the endoscope was passed under direct vision. Throughout the procedure, the patient's blood pressure, pulse, and oxygen saturations were monitored continuously. The Endoscope was introduced through the mouth, and advanced to the second part of duodenum. The upper GI endoscopy was accomplished without difficulty. The patient tolerated the procedure well. Findings: The upper third of the esophagus and middle third of the esophagus were normal. Biopsies were taken with a cold forceps for histology. There were esophageal mucosal changes suspicious for short-segment Barboza's esophagus present in the lower third of the esophagus. These changes were visualized in white light and narrow band imaging. There was also a single white plaque in the distal esophagus that could represent kristin vs reflux esophagitis. The maximum longitudinal extent of these mucosal changes was 1 cm in length and started at the GE junction and extended proximally. Numerous biopsies were taken. The scope was withdrawn. Dilation was performed with a Thao dilator with no resistance at 50 Fr and mild resistance at 54 Fr. The entire examined stomach was normal. Biopsies were taken with a cold forceps for Helicobacter pylori testing using CLOtest. A single 6 mm mucosal nodule was found in the duodenal bulb. Biopsies were taken with a cold forceps for histology. The 2nd part of the duodenum was normal. _ Impression: - Normal upper third of esophagus and middle third of esophagus. Biopsied. - Esophageal mucosal changes suspicious for short-segment Barboza's esophagus. Biopsied. Entire esophagus dilated. - Normal stomach. Biopsied. - Mucosal nodule found in the duodenum. Biopsied. - Normal 2nd part of the duodenum. Recommendation: - Await pathology results. - Perform a hepatobiliary scan at appointment to be scheduled. - Continue Omeprazole 40mg PO each day - Soft diet Procedure Code(s): --- Professional --- 69779, Esophagogastroduod enoscopy, flexible, transoral; with biopsy, single or multiple 01592, Dilation of esophagus, by unguided sound or bougie, single or multiple passes --- Technical --- 98368, Esophagogastroduod enoscopy, flexible, transoral; with biopsy, single or multiple 01568, Dilation of esophagus, by unguided sound or bougie, single or multiple passes Diagnosis Code(s): --- Professional --- K22.8, Other specified diseases of esophagus K31.9, Disease of stomach and duodenum, unspecified R10.13, Epigastric pain R10.11, Right upper quadrant pain R13.10, Dysphagia, unspecified --- Technical --- K22.8, Other specified diseases of esophagus K31.9, Disease of stomach and duodenum, unspecified R10.13, Epigastric pain R10.11, Right upper quadrant pain R13.10, Dysphagia, unspecified CPT copyright 2015 [employer]. All rights reserved. The codes documented in this report are preliminary and upon puller out review may be revised to meet current compliance requirements. Dr. Negrito Reyes MD Negrito Reyes MD 07/11/2016 2:49:14 PM This report has been signed electronically. Number of Addenda: 0 Note Initiated On: 07/11/2016 2:14 PM [facility] 07/11/2016 2:14 PM FINISHING ROOM OPERATOR Negrito Reyes MD GI PROCEDURE ORDERA IVIS [facility] [place] [address] * ENDOSCOPY, COLON, SCREENING (07/11/2016) Negrito Reyes MD GI PROCEDURE ORDERA BLES * CARDIAC EKG ORDER (07/08/2016 10:33 PM CDT) Only the most recent of2 resultswithin the time period is included. Narrative 07/08/2016 10:33 PM CDT Ordered by an unspecified provider. Scanned Document CARDIAC SERVICES ORD ERABLES * US ABD LIMITED (RUQ) (07/08/2016 2:05 PM CDT) Anatomical Region Laterality Modality Abdomen Ultrasound 07/08/2016 2:09 PM CDT Impressions 07/08/2016 3:21 PM CDT Increased echogenicity of the liver. Common bile duct is mildly enlarged at 8 mm. Edited by Herminia Richards on 07/08/2016 2:16 PM Narrative 07/08/2016 3:21 PM CDT RIGHT UPPER QUADRANT ULTRASOUND INDICATION: Abdominal pain. TECHNIQUE: Grayscale images of the right upper quadrant were performed. There is no evidence of cholelithiasis. The liver is increased in echogenicity as can be seen with steatosis. Common bile duct is mildly enlarged and measures 8 mm. The visualized portions of the pancreas are unremarkable. The right kidney is of normal size, echogenicity and renal cortical thickness and measures 15.5 cm x 4.9 cm x 5.6 cm. Procedure Note Angie Heath MD - 07/08/2016 RIGHT UPPER QUADRANT ULTRASOUND INDICATION: Abdominal pain. TECHNIQUE: Grayscale images of the right upper quadrant were performed. There is no evidence of cholelithiasis. The liver is increased in echogenicity as can be seen with steatosis. Common bile duct is mildly enlarged and measures 8 mm. The visualized portions of the pancreas are unremarkable. The right kidney is of normal size, echogenicity and renal cortical thickness and measures 15.5 cm x 4.9 cm x 5.6 cm. IMPRESSION Increased echogenicity of the liver. Common bile duct is mildly enlarged at 8 mm. Edited by Herminia Richards on 07/08/2016 2:16 PM Omar Cooper MD US ORDERABLES * (ABNORMAL) URINALYSIS MICROSCOPIC ONLY W/REFLEX CULTURE (07/08/2016 12:23 PM CDT) Epithelial Cell UA 0-2 0-2, 2-5 # /hpf 07/08/2016 1:17 PM CDT [facility] Hyaline Casts 2-5(A) 0 - 2 # /lpf 07/08/2016 1:17 PM CDT [facility] Urine URINE SPECIMEN OBTAINED BY CLEAN CATCH PROCEDURE / Unknown 07/08/2016 12:23 PM CDT 07/08/2016 12:26 PM CDT Marilyn Blue DO LAB - URINALYSIS ORD ERABLES [facility] [address] [place] [address] * (ABNORMAL) URINALYSIS ROUTINE W/REFLEX TO CULTURE (07/08/2016 12:23 PM CDT) Color UA Yellow Straw, Yellow, Dark Yellow 07/08/2016 12:50 PM CDT [facility] Clarity UA Clear 07/08/2016 12:50 PM CDT [facility] Specific Willow UA >1.030(H) 1.005 - 1.030 07/08/2016 12:50 PM CDT [facility] pH UA 5.0 5.0 - 8.0 pH 07/08/2016 12:50 PM CDT [facility] Protein UA 2+(A) Negative 07/08/2016 12:50 PM CDT [facility] Blood UA Negative Negative 07/08/2016 12:50 PM CDT [facility] Leukocyte UA Negative Negative 07/08/2016 12:50 PM CDT [facility] Nitrite UA Negative Negative 07/08/2016 12:50 PM CDT [facility] Glucose UA Negative Negative 07/08/2016 12:50 PM CDT [facility] Ketone UA Negative Negative 07/08/2016 12:50 PM CDT [facility] Bilirubin UA Negative Negative 07/08/2016 12:50 PM CDT [facility] Urobilinogen UA 0.2 0.1 - 1.0 EU/dL 07/08/2016 12:50 PM CDT [facility] WBC UA Auto 2-5 0-2, 2-5 # /hpf 07/08/2016 12:50 PM CDT [facility] RBC UA Auto 0-2 0-2, 2-5 # /hpf 07/08/2016 12:50 PM CDT [facility] Bacteria UA Auto None seen None seen 07/08/2016 12:50 PM CDT [facility] Hyaline Casts UA Auto Reflex to manual(A) 0 - 2 #/lpf 07/08/2016 12:50 PM CDT [facility] Reflex Status Culture not indicated 07/08/2016 12:50 PM CDT [facility] Urine URINE SPECIMEN OBTAINED BY CLEAN CATCH PROCEDURE / Unknown 07/08/2016 12:23 PM CDT 07/08/2016 12:26 PM CDT Marilyn Blue DO LAB - URINALYSIS ORD ERABLES [facility] [address] [place] [address] * ED CRITICAL CARE (07/07/2016 8:02 PM CDT) Narrative Marilyn Blue DO - 07/07/2016 8:02 PM CDT Marilyn Blue DO 07/07/2016 8:02 PM Critical Care Performed by: MARILYN BLUE Authorized by: MARILYN BLUE Total critical care time: 40 minutes Critical care time was exclusive of separately billable procedures and treating other patients. Critical care was necessary to treat or prevent imminent or life-threatening deterioration of the following conditions: hypertensive urgency, NSTEMI. Critical care was time spent personally by me on the following activities: development of treatment plan with patient or surrogate, discussions with consultants, interpretation of cardiac output measurements, evaluation of patient's response to treatment, examination of patient, obtaining history from patient or surrogate, ordering and performing treatments and interventions, ordering and review of laboratory studies, ordering and review of radiographic studies, pulse oximetry, re-evaluation of patient's condition and review of old charts. Marilyn Blue DO PROCEDURE/MINOR SURG ICAL ORDERABLES * CT AORTA FOR DISSECTION (07/07/2016 2:00 PM CDT) Anatomical Region Laterality Modality Computed Tomogra phy 07/07/2016 2:05 PM CDT Impressions 07/07/2016 2:09 PM CDT No aortic aneurysm or dissection identified. Small pericardial effusion. Considerable coronary artery calcification. See above. Narrative 07/07/2016 2:[address] Angiography Thorax with and without contrast CT Angiography Abdomen with and without contrast CT 3D Reconstruction Clinical Indication: Severe Chest pain, Severe abdominal pain, abdominal and thoracic aortic dissection and aneurysm. Technique:Axial CT imaging from the lung apices to the aortic bifurcation was performed before and after administration of 80 mL Omnipaque 350 intravenous contrast. Maximum intensity projection and 3-D volume rendered reconstructions of the arterial vasculature were created on an independent workstation. Findings: CTA Thorax: There is no evidence of aortic aneurysm or aortic dissection. There is coronary artery calcification. Mediastinal structures are unremarkable. The lung julio are well aerated. There is a relatively small pericardial effusion. There is no pleural effusion. The bony thorax is intact. CTA Abdomen: The abdominal aorta is normal in caliber. No focal aneurysm or dissection is identified. The renal and mesenteric arteries are patent. There is plaque at the origin of the superior mesenteric. There is considerable calcific plaque formation distal abdominal aorta extending into the common iliac artery bilaterally. The liver, spleen, kidneys, adrenal glands, and pancreas are unremarkable. Bile ducts are not grossly dilated. Visualized bowel loops are unremarkable. Procedure Note Deshawn Hoover MD - 07/07/2016 CT Angiography Thorax with and without contrast CT Angiography Abdomen with and without contrast CT 3D Reconstruction Clinical Indication: Severe Chest pain, Severe abdominal pain, abdominal and thoracic aortic dissection and aneurysm. Technique:Axial CT imaging from the lung apices to the aortic bifurcation was performed before and after administration of 80 mL Omnipaque 350 intravenous contrast. Maximum intensity projection and 3-D volume rendered reconstructions of the arterial vasculature were created on an independent workstation. Findings: CTA Thorax: There is no evidence of aortic aneurysm or aortic dissection. There is coronary artery calcification. Mediastinal structures are unremarkable. The lung julio are well aerated. There is a relatively small pericardial effusion. There is no pleural effusion. The bony thorax is intact. CTA Abdomen: The abdominal aorta is normal in caliber. No focal aneurysm or dissection is identified. The renal and mesenteric arteries are patent. There is plaque at the origin of the superior mesenteric. There is considerable calcific plaque formation distal abdominal aorta extending into the common iliac artery bilaterally. The liver, spleen, kidneys, adrenal glands, and pancreas are unremarkable. Bile ducts are not grossly dilated. Visualized bowel loops are unremarkable. IMPRESSION No aortic aneurysm or dissection identified. Small pericardial effusion. Considerable coronary artery calcification. See above. Marilyn Blue DO CT ORDERABLES * CT ABD/PELVIS STONE PROTOCOL (07/07/2016 11:49 AM CDT) Anatomical Region Laterality Modality Abdomen Computed Tomogra phy 07/07/2016 12:0 4 PM CDT Addenda Addendum by Deshawn Elkins MD on 07/07/2016 1:35 PM CDT There is very faint haziness around the proximal pancreas and root of small bowel mesentery. Please correlate with laboratory values for acute pancreatitis. This was discussed with Dr. Blue by Dr. Elkins at 1300 on July 07, 2016. Impressions 07/07/2016 12:12 PM CDT No urinary tract calculi or hydronephrosis. No inflammatory process. Cardiomegaly and small pericardial effusion. Narrative 07/07/2016 12:[address] ABDOMEN AND PELVIS WITHOUT CONTRAST Clinical Indication: Unspecified abdominal pain. COMPARISON: None. Technique: Axial CT images from the lung bases through the pubic symphysis were obtained without intravenous contrast. Findings: Partially imaged cardiomegaly. Small pericardial effusion. The imaged lung bases are clear. The liver, spleen, gallbladder, and adrenal glands are within normal limits. The pancreas is unremarkable. No peripancreatic inflammation. Evaluation the kidneys reveals no intrarenal calculi or hydronephrosis. No ureteric or urinary bladder stones identified. No perinephric fluid collection. No evidence of bowel obstruction, wall thickening, or inflammation. No free fluid or free air. A few scattered colonic diverticula are noted without diverticulitis. The appendix is normal. Aorta and iliac vasculature are heavily calcified. Mild ectasia left common iliac artery 1.8 cm. No significant aneurysmal dilatation. No acute osseous abnormality or destructive process. Degenerative changes throughout the lumbar spine. Procedure Note Deshawn Elkins MD - 07/07/2016 CT ABDOMEN AND PELVIS WITHOUT CONTRAST Clinical Indication: Unspecified abdominal pain. COMPARISON: None. Technique: Axial CT images from the lung bases through the pubic symphysis were obtained without intravenous contrast. Findings: Partially imaged cardiomegaly. Small pericardial effusion. The imaged lung bases are clear. The liver, spleen, gallbladder, and adrenal glands are within normal limits. The pancreas is unremarkable. No peripancreatic inflammation. Evaluation the kidneys reveals no intrarenal calculi or hydronephrosis. No ureteric or urinary bladder stones identified. No perinephric fluid collection. No evidence of bowel obstruction, wall thickening, or inflammation. No free fluid or free air. A few scattered colonic diverticula are noted without diverticulitis. The appendix is normal. Aorta and iliac vasculature are heavily calcified. Mild ectasia left common iliac artery 1.8 cm. No significant aneurysmal dilatation. No acute osseous abnormality or destructive process. Degenerative changes throughout the lumbar spine. IMPRESSION No urinary tract calculi or hydronephrosis. No inflammatory process. Cardiomegaly and small pericardial effusion. Marilyn Blue DO CT ORDERABLES * LIPASE BLOOD (07/07/2016 11:22 AM CDT) Lipase 179 10 - 220 U/L 07/07/2016 12:17 PM CDT [facility] Blood BLOOD SPECIMEN / Unknown 07/07/2016 11:22 AM CDT 07/07/2016 11:56 AM CDT Marilyn Blue DO LAB - CHEMISTRY JIM JENKINS [facility] [address] [place] [id number] * (ABNORMAL) LIPID PROFILE W LDL/HDL (PO REF LAB) (06/17/2014 12:33 PM CDT) Cholesterol 211(H) 125 - 200 mg/dL [facility] Comment: Test Performed at: [facility] [address] [place] [address] ADRIANE MUNOZ DO,MPH HDL Cholesterol 30(L) > OR = 40 mg/dL [facility] Triglycerides 294(H) <150 mg/dL [facility] LDL Direct 152(H) <130 mg/dL [facility] Comment: Desirable range <100 mg/dL for patients with CHD or diabetes and <70 mg/dL for diabetic patients with known heart disease. CHOL/HDLC RATIO 7.0(H) < OR = 5.0 (calc) [facility] Non HDL Cholesterol 181(H) mg/dL (calc) [facility] Comment: Target for non-HDL cholesterol is 30 mg/dL higher than LDL cholesterol target. Blood specimen (specimen) BLOOD SPECIMEN / Unknown 06/17/2014 12:33 PM CDT 06/17/2014 12:34 PM CDT Kinza ShoemakerCandida [facility] LAB - CHEM ISTRY ORDERABLES Performing Organization Address [facility] Co de Phone Number [place] [phone] * (ABNORMAL) URINALYSIS ROUTINE AUTO (06/17/2014 12:33 PM CDT) Only the most recent of4 resultswithin the time period is included. Color UA YELLOW YELLOW [facility] Appearance CLEAR CLEAR [facility] Specific Willow UA 1.024 1.001 - 1.035 [facility] pH UA 5.5 5.0 - 8.0 [facility] Glucose UA NEGATIVE NEGATIVE [facility] Bilirubin UA NEGATIVE NEGATIVE [facility] Ketone UA NEGATIVE NEGATIVE [facility] Blood UA NEGATIVE NEGATIVE [facility] Protein UA 1+(A) NEGATIVE [facility] Nitrite UA NEGATIVE NEGATIVE [facility] Leukocyte UA NEGATIVE NEGATIVE [facility] WBC UA NONE SEEN < OR = 5 /HPF [facility] RBC UA NONE SEEN < OR = 3 /HPF [facility] Epithelial Cell UA NONE SEEN < OR = 5 /HPF [facility] Bacteria UA NONE SEEN NONE SEEN /HPF [facility] Hyaline Casts NONE SEEN NONE SEEN /LPF [facility] Comment: Test Performed at: [facility] [place] [address] [place] [address] ADRIANE MUNOZ DO,MPH Urine specimen (specimen) URINE SPECIMEN FROM URINARY BLADDER / Unknown 06/17/2014 12:33 PM CDT 06/17/2014 12:34 PM CDT Radfordtomi ShoemakerCandida [facility] LAB - URIN ALYSIS ORDERABLES Performing Organization Address [facility] Co de Phone Number [address] [address] * AMB REFERRAL TO NEUROSURGERY (06/07/2014) Hazel Boyer MD OUTPATIENT REFERRALS * XR LUMBAR SPINE 2 OR 3 VW (05/02/2014 10:20 AM CDT) Only the most recent of2 resultswithin the time period is included. Anatomical Region Laterality Modality Spine Radiographic Monica ging 05/02/2014 10:4 6 AM CDT Narrative 05/02/2014 10:50 AM CDT 3 views lumbosacral spine Indication: Back pain Findings: There is no compression or subluxation. There is no osseous destruction. There is diffuse hypertrophic spurring and facet arthropathy seen throughout the thoracolumbar spine. Procedure Note Matt Horn MD - 05/02/2014 3 views lumbosacral spine Indication: Back pain Findings: There is no compression or subluxation. There is no osseous destruction. There is diffuse hypertrophic spurring and facet arthropathy seen throughout the thoracolumbar spine. Hazel Boyer MD DIAGNOSTIC IMAGING O RDERABLES * CARDIAC STRESS TEST ORDER (01/17/2014 9:13 PM CDT) Only the most recent of2 resultswithin the time period is included. Narrative 01/17/2014 9:13 PM CDT Ordered by an unspecified provider. Transcriptions Document, Scanned - 01/17/2014 9:13 PM CDT Scanned Document CARDIAC SERVICES ORD ERABLES * (ABNORMAL) LIPID PROFILE (01/06/2014 12:02 PM CDT) Only the most recent of4 resultswithin the time period is included. [facility] Signature Cholesterol 159 125 - 200 mg/dL [facility] Comment: Test Performed at: [facility] [place] [address] [place] [address] ADRIANE MUNOZ DO,MPH HDL Cholesterol 24(L) > OR = 40 mg/dL [facility] Triglycerides 474(H) <150 mg/dL [facility] LDL Calculated <130 mg/dL (calc) [facility] Comment: LDL cholesterol not calculated. Triglyceride levels greater than 400 mg/dL invalidate calculated LDL results. Desirable range <100 mg/dL for patients with CHD or diabetes and <70 mg/dL for diabetic patients with known heart disease. CHOL/HDLC RATIO 6.6(H) < OR = 5.0 (calc) [facility] Non HDL Cholesterol 135 mg/dL (calc) [facility] Comment: Target for non-HDL cholesterol is 30 mg/dL higher than LDL cholesterol target. Blood specimen (specimen) BLOOD SPECIMEN / Unknown 01/06/2014 12:02 PM CDT 01/06/2014 12:03 PM CDT Kinza Coronado LADDER OPERATOR-MANAGER ER LAB - CHEM ISTRY ORDERABLES [facility] [address] [address] [place], [place] [address] * XR HIPS BILAT 2VWS W PELVIS (07/31/2012 1:56 PM FINISHING ROOM OPERATOR) Anatomical Region Laterality Modality Pelvis, Lower Extremity Radiogra phic Imaging 07/31/2012 2:09 PM FINISHING ROOM OPERATOR Impressions 07/31/2012 2:09 PM FINISHING ROOM OPERATOR 1. No evidence of acute injury. 2. Degenerative changes in the left hip joint. 3. There has been previous fixation of the left hip from with removal of the surgical hardware. Narrative 07/31/2012 2:09 PM FINISHING ROOM OPERATOR PELVIS AND BILATERAL HIPS from 07/31/2012 INDICATION: Left hip pain. AP radiograph of the pelvis and AP and frog-leg radiographs of both hips were obtained. There is no evidence of a fracture or dislocation. There are degenerative changes in the left hip with mild joint space narrowing and marginal osteophyte formation. There is sclerotic change in the left femoral head related to previous hardware placement. Procedure Note Porfirio Kan MD - 07/31/2012 PELVIS AND BILATERAL HIPS from 07/31/2012 INDICATION: Left hip pain. AP radiograph of the pelvis and AP and frog-leg radiographs of both hips were obtained. There is no evidence of a fracture or dislocation. There are degenerative changes in the left hip with mild joint space narrowing and marginal osteophyte formation. There is sclerotic change in the left femoral head related to previous hardware placement. IMPRESSION 1. No evidence of acute injury. 2. Degenerative changes in the left hip joint. 3. There has been previous fixation of the left hip from with removal of the surgical hardware. Hazel Boyer MD DIAGNOSTIC IMAGING O RDERABLES * MICROALBUMIN URINE RANDOM (07/31/2012 12:34 PM FINISHING ROOM OPERATOR) Microalbumin Urine 3.1 mg/dL [facility] Comment: Reference Range Not established [facility] Comment: The ADA defines abnormalities in albumin excretion as follows: Category Result (mcg/mg creatinine) Normal <30 Microalbuminuria 30-299 Clinical albuminuria > OR = 300 The ADA recommends that at least two of three specimens collected within a 3-6 month period be abnormal before considering a patient to be within a diagnostic category. Test Performed at: [facility] [id number] [place] [address] ADRIANE MUNOZ DO,MPH Urine specimen (specimen) URINE / Unknown 07/31/2012 12:34 PM FINISHING ROOM OPERATOR 07/31/2012 12:35 PM FINISHING ROOM OPERATOR Hazel Boyer MD LAB - URINE CHEMISTR Y ORDERABLES Performing Organization Address City/State/[facility] Co de Phone Number [facility] [phone] [place] [address] * XR HAND 3+ VW LEFT (01/13/2010 9:46 AM CDT) Anatomical Region Laterality Modality Wrist / Hand Radiographic Monica ging 01/13/2010 10:0 9 AM CDT Impressions 01/13/2010 10:16 AM CDT POLYARTICULAR CHANGES OF OSTEOARTHRITIS. Narrative 01/13/2010 10:16 AM CDT LEFT HAND INDICATION: Left hand pain Three views of the left hand are provided. There is polyarticular degenerative change especially noted at the radiocarpal joint, the carpal row and the basilar joint of the thumb. There is mild MCP joint narrowing as well as DIP and PIP narrowing. A small fragment is noted adjacent to the ulnar styloid which may be posttraumatic or degenerative. Procedure Note Angie Heath MD - 01/13/2010 LEFT HAND INDICATION: Left hand pain Three views of the left hand are provided. There is polyarticular degenerative change especially noted at the radiocarpal joint, the carpal row and the basilar joint of the thumb. There is mild MCP joint narrowing as well as DIP and PIP narrowing. A small fragment is noted adjacent to the ulnar styloid which may be posttraumatic or degenerative. IMPRESSION POLYARTICULAR CHANGES OF OSTEOARTHRITIS. Daryn Yu MD DIAGNOSTIC IMAGING O RDERABLES * LAB RESULTS ORDER (02/03/2009) Historical Provider LAB - THERAPEUTIC DRUG MONITORING ORDERABLES * GROSS + MICRO EXAM (05/24/2000 12:00 AM CDT) Result CASE NUMBER [id number] Comment: ORDERING PHYSICIAN JERONIMO SOTELO SPECIMEN TYPE Cyst-rt thigh Surgeon JERONIMO SOTELO M.D. Gross Exam DR. MARIA DEL ROSARIO BLOOM M.D. Gross Report INDICATION FOR PROCEDURE RIGHT THIGH MASS OPERATION SPECIMEN RIGHT THIGH GROSS THE SPECIMEN IS RECEIVED IN A CONTAINER LABELED WITH THE PATIENT'S NAME DINA RITTER AND IDENTIFIED RIGHT THIGH . THE SPECIMEN CONSISTS OF TWO YELLOW-LLAMAS PIECES OF TISSUE WHICH MEASURE 1.0 X 0.4 X 0.4 CM. AND 1.0 X 0.6 X 0.4 CM. EACH SPECIMEN IS SERIALLY SECTIONED AND SUBMITTED IN CASSETTES A AND B RESPECTIVELY. [facility]/ MICROSCOPIC EXAM MICROSCOPIC MICROSCOPIC EXAMINATION OF SECTIONS LABELED A AND B REVEAL SKIN WITH MARKED FIBROSIS OF THE DERMIS, HEAVY CHRONIC INFLAMMATION AND SOME AREAS OF SQUAMOUS EPITHELIUM PRESENT WITHIN THE DEEP DERMIS. DIAGNOSIS DIAGNOSIS [1] SKIN, RIGHT THIGH, EXCISION OF A MASS -- CONSISTENT WITH RUPTURED KERATINOUS CYST, WITH FIBROSIS AND CHRONIC INFLAMMATION. PASTOR ROLON M.D. [id number] Released By Pastor Rolon V MISCELLANEOUS SAMPLE S / Unknown 05/24/2000 05/25/2000 9:30 AM CDT Historical Provider LAB - PATHOLOGY/C YTOLOGY ORDERABLES Care Teams Child Protection Specialist Relationship Specialty [place] [id number] [facility] [address] [place] [address] PCP - General 03/30/12 [place] [id number] [facility] [address] [place] [address] Anesthesiology-Pain Management 06/09/14
--- OUTSIDE RECORDS SUMMARY | 2024-10-15 13:34 | XMS_ITS | Referral Summary ---
Author Organization [facility] Address [address] [facility] [place] [address] Care Team Providers Care Engineer Third Assistant Name Role Phone Hazel Boyer MD Primary Care Provider Gordy Yancey MD Unavailable [phone] Source Comments [facility],non-owned Affiliates and Associated Physician Practices is amultiple site organization consisting of ambulatory clinics and hospital sitesin [place], [place], [place] and [place]. This disclosure is being madepursuant to the Care Everywhere program and may not contain all information available regarding this patient. Last updated 18.[facility] Encounters Date Type Department Care Team Description 10/03/2024 9:35 AM SENIOR MECHANICAL PROJECT ENGINEER Ancillary Procedure [facility] Orthopedics - Radiology [address] [place] [address] Anamaria Frausto PA S/P total left hip arthroplasty, dos 09/13/24; S/P total left hip arthroplasty 10/03/2024 9:30 AM SENIOR MECHANICAL PROJECT ENGINEER Office Visit [facility] Orthopedics [id number] [place] [address], [address] [place] [address] Anamaria Frausto PA S/P total left hip arthroplasty, dos 09/13/24 (Primary Dx) 09/30/2024 Refill [facility] [id number] [place] [address], [facility] [address] [place] [address] Abdiaziz Flores IV, MD MEDICATION REFILL 09/16/2024 Transitional Care [facility] Group - Care Coordination [facility] [place] [address] Perlita Mims SNUFF PACKING MACHINE OPERATOR Transitional Care 09/13/2024 6:41 AM SENIOR MECHANICAL PROJECT ENGINEER - 09/15/2024 12:49 PM SENIOR MECHANICAL PROJECT ENGINEER Hospital Encounter [facility] [address] [place] [address] Abdiaziz Flores IV, MD Surgery Orthopedics Discharge Disposition: Home Health Care Sv 09/14/2024 Refill [facility] Standard [address] [place] [address] Abdiaziz Flores IV, MD MEDICATION REFILL 09/13/[address], [address] [place] [address] Abdiaziz Flores IV, MD Refill Request 09/13/2024 10:47 AM SENIOR MECHANICAL PROJECT ENGINEER Anesthesia Event [facility] - Perioperative Surgery [address] [place] [address] Marycruz Valentin, DO Matt Morrell, DO 09/13/2024 Travel 09/13/2024 8:45 AM SENIOR MECHANICAL PROJECT ENGINEER - 09/13/2024 11:19 AM SENIOR MECHANICAL PROJECT ENGINEER Surgery [facility] - Perioperative Surgery [address] [place] [address] Abdiaziz Flores IV, MD ARTHROPLASTY LEFT TOTAL HIP (ANTERIOR) 09/10/[address], [address] [place] [address] Abdiaziz Flores IV, MD Surgery Scheduling 08/27/2024 Refill [facility] [id number] [place] [address] [address] [place] [address] Hazel Boyer MD Refill Request 08/25/[address] [place] [address] Hazel Boyer MD Refill Request 08/25/2024 Refill [facility] [id number] [place] [address] [address] [place] [address] Amalia Mckee Jr., MD Refill Request 08/20/2024 Travel 08/20/2024 9:30 AM SENIOR MECHANICAL PROJECT ENGINEER Office Visit [facility] [address] [facility], [address] [place] [address] Lazaro Gaona MD CAD in twenty-nine palms artery (Primary Dx); Preoperative cardiovascular examination; Stented coronary artery 07/25/2024 Refill [facility] [address] [facility] [address] [place] [address] Hazel Boyer MD MEDICATION REFILL 07/23/2024 Travel 07/23/2024 11:08 AM SENIOR MECHANICAL PROJECT ENGINEER - 07/23/2024 11:59 PM SENIOR MECHANICAL PROJECT ENGINEER Hospital Encounter [facility] [address] [facility] [address] [place] [address] Abdiaziz Flores IV, MD Discharge Disposition: Home or Self Care 07/23/2024 10:00 AM SENIOR MECHANICAL PROJECT ENGINEER Office Visit [facility] [id number] [place] [address] [address] [place] [address] Hazel Boyer MD Type 2 diabetes mellitus without complication, without long-term current use of insulin (HCC) (Primary Dx); Essential hypertension; Coronary artery disease involving twenty-nine palms heart without angina pectoris, unspecified vessel or lesion type; Mixed hyperlipidemia; Anemia, unspecified type; Idiopathic gout, unspecified chronicity, unspecified site; Spinal stenosis, unspecified spinal region; Basal cell carcinoma (BCC) of skin of face, unspecified part of face 07/16/2024 Refill [facility] [id number] [place] [address] [address] [place] [address] Hazel Boyer MD MEDICATION REFILL from Last 3 Months Allergies No known active allergies Medications * [...] TYPE 2 DIABETES MELLITUS WITHOUT COMPLICATION, WITHOUT KEYBOARD ACTION ASSEMBLER CURRENT USE OF INSULIN 270 tablet 3 [...] face 03/30 Overview (03/30/2021): Sees dermatology- Dr Carreno. 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 He has had multiple surgeries on hands, shoulders. And had surgery on left hip. He has chronic hand, hip, back and shoulder pain. No hx of opioid abuse and uses pain meds rarely and sporadically with pain flare up. Update 03/28/2022. 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 Hospitalized 2 weeks. Had rehab. In traction. Reconstruction both hands. Bilateral elbow fractures. Broke all his teeth and had broken ribs. Had hand surgery by Dr Yu in 1983/1984- 1985. Had left shoulder damage. 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 Hospitalized 2 weeks. Had rehab. In [...] Mixed hyperlipidemia 03/15/2012 015 Coronary atherosclerosis of twenty-nine palms coronary artery 03/13/2012 04/22/2013 HTN 03/13/2012 05/15/2015 Pure hypercholesterolemia 03/13/2012 Pure hyperglyceridemia 03/13/201204/22 Nephrolithiasis 03/13/2012 05/31/2018 Gout 03/13/2012 07/14/2015 Immunizations Name Administration Dates Next Due INFLUENZA [...] Zoster Hzv Vacc Recombinant Inj Im 03/13/2019, Social History Tobacco Use Types Packs/Day Years [...] Recorded Patient Health Questionnaire-2 Score 0 09/26/2024 [facility] - Occupational Stress [...] time in the past [address] [facility], were you homeless or living in a retirement (including now)? No 09/13/2024 Sex and Gender Information Value Date Recorded Sex Assigned at Male 10/06/2023 9:29 AM SENIOR MECHANICAL PROJECT ENGINEER Gender Identity Not on file Sexual Orientation Not on file Last Filed Vital Signs Vital Sign Reading Time Taken Comments Blood Pressure 177/62 09/15/2024 9:42 AM SENIOR MECHANICAL PROJECT ENGINEER sit ting EOB Pulse 81 09/15/2024 9:42 AM SENIOR MECHANICAL PROJECT ENGINEER Temperature 36.7 C (98 F) 09/15/2024 7:39 AM SENIOR MECHANICAL PROJECT ENGINEER Respiratory Rate 18 09/15/2024 7:39 AM SENIOR MECHANICAL PROJECT ENGINEER Oxygen Saturation 94% 09/15/2024 9:42 AM SENIOR MECHANICAL PROJECT ENGINEER Inhaled Oxygen Concentration - - Weight 98 kg (216 lb) 09/13/2024 7:14 AM SENIOR MECHANICAL PROJECT ENGINEER Height 177.8 cm (5' 10 ) 09/13/2024 7:14 AM SENIOR MECHANICAL PROJECT ENGINEER Body Mass Index 30.99 09/13/2024 7:14 AM SENIOR MECHANICAL PROJECT ENGINEER Functional Status Functional Status Response Date of Assess ment Is person deaf or have serious hearing difficult y? No 05/05/2017 Is person blind or have serious difficulty seein g? No 05/05/2017 Does person have serious dif ficulty walking/climbing stairs? No 05/05/2017 Does person have difficulty dressing/bathing? Ye s 05/05/2017 Does person have difficulty doing errands alone? Yes 05/05/2017 Cognitive Status Response Date of Assessm ent Does person have difficulty concentrating/remembering/making decisions? No 05/05/2017 Plan of Treatment Upcoming Encounters Date Type Department Care Team (Late st Contact Info) Description 10/21/2024 11:50 AM SENIOR MECHANICAL PROJECT ENGINEER Office Visit [facility] Orthopedics [address] [address] [place] [address] [address] [place] [address] 12/02/2024 11:40 AM CDT Office Visit [facility] [address] [facility], [address] [place] [address] [place] [address] [address] [place] [address] 01/22/2025 10:00 AM CDT Office Visit [facility] [address] [facility] [address] [place] [address] [place] [address] [facility] [address] [place], [place] [id number] 02/20/2025 10:20 AM CDT Office Visit [facility] [address] [facility], [address] [place], [place] [phone] [place] [address] [facility] [address] [place] [address] Medical Devices Implanted Type Area Manager Shop Device Identifier Shelf Expiration Date Model / Serial / Lot [place] Park Sut Swivelock Tenodesis 7mm Bcmps Implanted:Qty: 1 on 05/03/2017 by Codey Ireland MD at [facility] Right: Shoulder [employer] 09/03/2018 [id number] / / [id number] Shell Actb 54mm Hip 4 Hl Clr Cd Osseoti Implanted:Qty: 1 on 09/13/2024 by Abdiaziz Flores IV, MD at [facility] Left: Hip [employer] 06/03/2034 [id number] / / [id number] Acetabular System Longevity Highly Crosslinked Polyethylene Liner +5mm Offset Implanted:Qty: 1 on 09/13/2024 by Abdiaziz Flores IV, MD at [facility] Left: Hip [employer] 10/18/2028 [id number] / / [id number] Head Fem +4mm 08/17 Tpr 36mm Hip Oxnm Implanted:Qty: 1 on 09/13/2024 by Abdiaziz Flores IV, MD at [facility] Left: Hip [employer] 05/25/2034 [id number] / / [id number] Stem Fem 143mm Hip 126d 4 08/17 Lat Ofst Implanted:Qty: 1 on 09/13/2024 by Abdiaziz Flores IV, MD at [facility] Left: Hip [employer] 02/18/2031 [id number] / / [id number] Explanted Type Area Manager Shop Device Identifier Shelf Expiration Date Model / Serial / Lot Pin Hlf 255mm 5mm Jtx Lng Orth Ss 45mm Explanted:Qty: 1 on 09/13/2024 at [facility] Left: Hip [employer] [id number] / / Procedures Procedure Name Priority Date/Time Associated Diagnosis Comments XR HIP LEFT 2VW OR MORE Routine 10/03/2024 9:35 AM SENIOR MECHANICAL PROJECT ENGINEER S/P total left hip arthroplasty GLUCOSE - POINT OF CARE Routine 09/15/2024 11:20 AM SENIOR MECHANICAL PROJECT ENGINEER GLUCOSE - POINT OF CARE Routine 09/15/2024 7:36 AM SENIOR MECHANICAL PROJECT ENGINEER BASIC METABOLIC PANEL (CALCIUM TOTAL) AM Draw 09/15/2024 5:36 AM SENIOR MECHANICAL PROJECT ENGINEER GLUCOSE - POINT OF CARE Routine 09/14/2024 8:35 PM SENIOR MECHANICAL PROJECT ENGINEER GLUCOSE - POINT OF CARE Routine 09/14/2024 6:00 PM SENIOR MECHANICAL PROJECT ENGINEER GLUCOSE - POINT OF CARE Routine 09/14/2024 11:28 AM SENIOR MECHANICAL PROJECT ENGINEER GLUCOSE - POINT OF CARE Routine 09/14/2024 8:10 AM SENIOR MECHANICAL PROJECT ENGINEER BASIC METABOLIC PANEL (CALCIUM TOTAL) AM Draw 09/14/2024 6:08 AM SENIOR MECHANICAL PROJECT ENGINEER Stage 3 chronic kidney disease, unspecified whether stage 3a or 3b CKD (HCC) GLUCOSE - POINT OF CARE Routine 09/13/2024 3:22 PM SENIOR MECHANICAL PROJECT ENGINEER GLUCOSE - POINT OF CARE Routine 09/13/2024 1:23 PM SENIOR MECHANICAL PROJECT ENGINEER FL GINA SURGERY Routine 09/13/2024 12:30 PM SENIOR MECHANICAL PROJECT ENGINEER Hip arthritis NEURAXIAL BLOCK Routine 09/13/2024 11:16 AM SENIOR MECHANICAL PROJECT ENGINEER NM TOTAL HIP REPLACEMENT 09/13/2024 10:32 AM SENIOR MECHANICAL PROJECT ENGINEER Special Needs S&N (ALEJANDRA) NOTIFIED-NB BASIC METABOLIC PANEL (CALCIUM TOTAL) STAT 09/13/2024 7:39 AM SENIOR MECHANICAL PROJECT ENGINEER Preop testing FRUCTOSAMINE STAT 07/23/2024 12:10 PM SENIOR MECHANICAL PROJECT ENGINEER Preop testing COMPREHENSIVE METABOLIC PANEL STAT 07/23/2024 12:10 PM SENIOR MECHANICAL PROJECT ENGINEER Preop testing EKG 12-LEAD STAT 07/23/2024 12:06 PM SENIOR MECHANICAL PROJECT ENGINEER Preop testing HEMOGLOBIN A1C W EAG Routine [...] ENDOSCOPY, COLON, SCREENING Routine 08/14/2018 2:12 PM SENIOR MECHANICAL PROJECT ENGINEER Screening for colorectal cancer HEPATITIS C ANTIBODY Routine 05/31/2018 9:34 AM CDT Encounter for hepatitis C screening test for low risk patient from Last 3 Months or Most Recently Relevant to Health Maintenance Results * XR Hip Left 2Vw or More (10/03/2024 9:35 AM SENIOR MECHANICAL PROJECT ENGINEER) Narrative [facility] [place] [address] - 10/03/2024 9:35 AM SENIOR MECHANICAL PROJECT ENGINEER Please see progress note in Epic for results. Anamaria MARQUEZ DIAGNOSTIC IMAGING O RDERABLES [facility] [place] [address] * (ABNORMAL) GLUCOSE - POINT OF CARE (09/15/2024 11:20 AM SENIOR MECHANICAL PROJECT ENGINEER) Only the most recent of8 resultswithin the time period is included. Glucose WB/POC 160(H) 70 - 99 mg/dL 09/15/2024 11:22 AM SENIOR MECHANICAL PROJECT ENGINEER [facility] Specimen Type Cap Fingerstick 2024 11:22 AM SENIOR MECHANICAL PROJECT ENGINEER [facility] Blood BLOOD SPECIMEN / Unknown 09/15/2024 11:20 AM SENIOR MECHANICAL PROJECT ENGINEER 09/15/2024 11:22 AM SENIOR MECHANICAL PROJECT ENGINEER Abdiaziz Flores IV, MD LAB - POINT OF CARE ORDERABLES Performing Organization Address City/[facility]/ZIP Co de Phone Number [facility] [address] [place] [phone] * (ABNORMAL) BASIC METABOLIC PANEL (CALCIUM TOTAL) (09/15/2024 5:36 AM SENIOR MECHANICAL PROJECT ENGINEER) Only the most recent of3 resultswithin the time period is included. Glucose 129(H) 70 - 99 mg/dL 09/15/2024 6:18 AM SENIOR MECHANICAL PROJECT ENGINEER [facility] Sodium 133(L) 136 - 145 mmol/L 09/15/2024 6:18 AM SENIOR MECHANICAL PROJECT ENGINEER [facility] Potassium 4.1 3.5 - 5.1 mmol/L 09/15/2024 6:18 AM [facility] Chloride 100 98 - 107 mmol/L 09/15/2024 6:18 AM [facility] CO2 24 22 - 29 mmol/L 09/15/2024 6:18 AM SENIOR MECHANICAL PROJECT ENGINEER [facility] Calcium 8.6 8.4 - 10.4 mg/dL 09/15/2024 6:18 AM SENIOR MECHANICAL PROJECT ENGINEER [facility] Anion Gap 9 6 - 16 mmol/L 09/15/2024 6:18 AM SENIOR MECHANICAL PROJECT ENGINEER [facility] BUN 23 7 - 26 mg/dL 09/15/2024 6:18 AM [facility] Creatinine 1.40(H) 0.72 - 1.25 mg/dL 09/15/2024 6:18 AM [facility] eGFR by CKD-EPI 56(L) >=90 mL/min/1.7 3 m2 09/15/2024 6:18 AM SENIOR MECHANICAL PROJECT ENGINEER [facility] Blood BLOOD SPECIMEN / Unknown Venipuncture / Unknown 09/15/2024 5:36 AM SENIOR MECHANICAL PROJECT ENGINEER 09/15/2024 5:46 AM SENIOR MECHANICAL PROJECT ENGINEER Eve Courtney MD LAB - CHEMISTRY JIM JENKINS Performing Organization Address [facility] de Phone Number [facility] [address] [place] [address] * [place] Gina Surgery (09/13/2024 12:30 PM SENIOR MECHANICAL PROJECT ENGINEER) Narrative [facility] - 09/13/2024 5:22 PM SENIOR MECHANICAL PROJECT ENGINEER For details of this study, please see the providers note. Abdiaziz Flores IV, MD FLUOROSCOPY ORDERABL ES Performing Organization Address [facility] de Phone Number [facility] [address] [place] [address] * Neuraxial Block (09/13/2024 11:16 AM SENIOR MECHANICAL PROJECT ENGINEER) Narrative Porfirio Deutsch APRN-SCOOTER MECHANIC - 09/13/2024 11:16 AM SENIOR MECHANICAL PROJECT ENGINEER Porfirio Deutsch APRN-CRNA 09/13/2024 11:17 AM Neuraxial Block Note Pre-Procedure: [...] O RDERABLES * FRUCTOSAMINE (07/23/2024 12:10 PM SENIOR MECHANICAL PROJECT ENGINEER) Fructosamine 280 205 - 285 umol/L 07/24/2024 9:00 PM SENIOR MECHANICAL PROJECT ENGINEER [facility] [employer] ([facility]) Comment: INTERPRETIVE INFORMATION: Fructosamine Variations in levels of serum proteins (albumin and immunoglobulins) may affect fructosamine results. Performed By: [facility] [address] [place] [address] Casket Upholsterer: Mandeep Rose MD, PhD CLIA Number: [id number] Blood BLOOD SPECIMEN / Unknown Venipuncture / Unknown 07/23/2024 12:10 PM SENIOR MECHANICAL PROJECT ENGINEER 07/23/2024 12:18 PM SENIOR MECHANICAL PROJECT ENGINEER Karla Magana APRN-MEDICAID ANALYST LAB - CHEMISTRY O RDERABLES [employer] ([facility]) [address] [place] [address], [facility] * (ABNORMAL) COMPREHENSIVE METABOLIC PANEL (07/23/2024 12:10 PM SENIOR MECHANICAL PROJECT ENGINEER) Glucose 107(H) 70 - 99 mg/dL 07/23/2024 12:35 PM SENIOR MECHANICAL PROJECT ENGINEER [facility] Sodium 140 136 - 145 mmol/L 07/23/2024 12:35 PM SENIOR MECHANICAL PROJECT ENGINEER [facility] Potassium 4.2 3.5 - 5.1 mmol/L 07/23/2024 12:35 PM [facility] Chloride 103 98 - 107 mmol/L 07/23/2024 12:35 PM [facility] CO2 29 22 - 29 mmol/L 07/23/2024 12:35 PM [facility] Calcium 9.5 8.4 - 10.4 mg/dL 07/23/2024 12:35 PM [facility] Anion Gap 8 6 - 16 mmol/L 07/23/2024 12:35 PM [facility] BUN 25 7 - 26 mg/dL 07/23/2024 12:35 PM [facility] Creatinine 1.35(H) 0.72 - 1.25 mg/dL 07/23/2024 12:35 PM [facility] Alkaline Phosphatase 41 40 - 150 U/L 07/23/2024 12:35 PM [facility] ALT 14 0 - 55 U/L 07/23/2024 12:35 PM [facility] AST 18 5 - 34 U/L 07/23/2024 12:35 PM [facility] Protein Total 7.0 6.4 - 8.3 gm/dL 07/23/2024 12:35 PM [facility] Albumin 3.8 3.4 - 5.0 gm/dL 07/23/2024 12:35 PM [facility] Bilirubin Total 0.5 0.2 - 1.2 mg/dL 07/23/2024 12:35 PM [facility] eGFR by CKD-EPI 58(L) >=90 mL/min/1.7 3 m2 07/23/2024 12:35 PM [facility] Blood BLOOD SPECIMEN / Unknown Venipuncture / Unknown 07/23/2024 12:10 PM SENIOR MECHANICAL PROJECT ENGINEER 07/23/2024 12:[address] [facility] Karla Magana APRN-MEDICAID ANALYST LAB - CHEMISTRY O RDERABLES [facility] [address] [place] [address] * EKG 12-LEAD (07/23/2024 12:[address] [facility]) Ventricular Rate 59 BPM [facility] Atrial Rate 59 BPM [facility] P-R Interval 154 ms [facility] QRS Duration ms 88 ms [facility] Q-T Interval ms 432 ms [facility] QTC Calculation (Bezet) 427 ms [facility] Calculated P Bassett 38 degrees [facility] Calculated R Bassett 27 degrees [facility] Calculated T Bassett -179 degrees [facility] Interpretation EKG Sinus bradycardia ST & T wave abnormality, consider inferolateral ischemia Abnormal ECG When compared with ECG of 12-OCT-2023 09:26, No significant change was found Confirmed by BETO GIL, BELLA ([id number]) on 07/23/2024 7:18:04 PM [facility] 07/23/2024 12:0 6 PM SENIOR MECHANICAL PROJECT ENGINEER 07/23/2024 7:18 PM SENIOR MECHANICAL PROJECT ENGINEER Marycruz Valentin DO ECG ORDERABLES Performing Organization Address City/[facility]/ZIP Co de Phone Number [facility] * (ABNORMAL) HEMOGLOBIN A1C W EAG (05/13/2024 2:38 PM CDT) [facility] Hemoglobin A1c 6.7(H) 4.8 - 5.6 % [facility] ACCOUNT BILL Comment: . Prediabetes: 5.7 - 6.4 Diabetes: >6.4 Glycemic control for adults with diabetes: <7.0 Estimated Average Glucose 146 mg/dL [facility] ACCOUNT BILL Blood BLOOD SPECIMEN / Unknown 05/13/2024 2:38 PM CDT 05/13/2024 Narrative Resulting Agency Comment Lab Testing performed at: [facility] [address] [facility] [id number] Natalie Valiente SENIOR GAMES TECHNICIAN-MEDICAID ANALYST LAB - CHEMISTRY O RDERABLES [facility] ACCOUNT BILL [address] [place] [address] * PROC OPH DIAB BILAT RET SCRN WCOMP INTERP (01/02/2024 10:50 AM CDT) [facility] IDX DR SCREEN No Diabetic Retinopathy Detected: [...] CDT Natalie ROSALES PROCEDURE/MINOR S URGICAL ORDERABLES DIGITAL DIAGNOSTICS DR [facility] * MICROALBUMIN URINE - POINT OF CARE (AMB) (01/02/2024 10:29 AM CDT) QC Verified Yes Yes [facility] Microalbumin 150 [facility] Creatinine POCT 100 [facility] Microalbumin/Crea tinine Ratio >300 [facility] Urine URINE / Unknown 01/02/2024 1 0:29 AM CDT Natalie Valiente APRN-MEDICAID ANALYST LAB - POINT OF CA RE ORDERABLES Performing Organization Address City/[facility]/ZIP Co de Phone Number [facility] [address] [phone] * PROSTATE SPECIFIC ANTIGEN SCREEN (05/02/2023 9:56 AM CDT) PSA 1.7 0.0 - 4.0 ng/mL [facility] ACCOUNT BILL Comment: Sarah ECLIA methodology. . According to the [employer] U[employer], Serum PSA should decrease and [...] Agency Comment Lab Testing performed at: [facility] [address] [facility] [id number] Hazel Boyer MD LAB - CHEMISTRY JIM JENKINS [facility] ACCOUNT BILL [address] [place] [address] * ENDOSCOPY, COLON, SCREENING (08/14/2018 2:12 PM SENIOR MECHANICAL PROJECT ENGINEER) Report Endoscopy POC _ Patient Name: Tyrell [...] by the physician, the nurse and the appraiser real estate in the procedure room. Mental Status Examination: [...] 4 weeks. Procedure Code(s): --- Professional --- 16391, Colonoscopy, flexible; with biopsy, single or multiple --- Technical --- 92573, Colonoscopy, flexible; with biopsy, single or multiple Diagnosis Code(s): --- Professional --- Z12.11, Encounter for screening for malignant neoplasm of colon K62.1, Rectal polyp D12.5, Benign neoplasm of sigmoid colon --- Technical --- Z12.11, Encounter for screening for malignant neoplasm of colon K62.1, Rectal polyp D12.5, Benign neoplasm of sigmoid colon CPT copyright 2017 [employer]. All rights reserved. The codes documented in this report are preliminary and upon buffing line set up worker review may be revised to meet current compliance requirements. Dr. Negrito Holguin MD Negrito Holguin MD 08/14/2018 3:33:28 PM This report has been signed electronically. Number of Addenda: 0 Note Initiated On: 08/14/2018 2:12 PM [facility] 08/14/2018 2:12 PM SENIOR MECHANICAL PROJECT ENGINEER Negrito Holguin MD GI PROCEDURE [facility] [place] [address] * HEPATITIS C ANTIBODY (05/31/2018 9:34 AM CDT) Hepatitis C Antibody Non Reactive Non Reactive [facility] ACCOUNT BILL Comment: Non Reactive - Antibodies to Hepatitis C virus (HCV) were no t detected, result does not exclude early acute HCV infection. FASTING Blood BLOOD SPECIMEN / Unknown 05/31/2018 9:34 AM CDT 05/31/2018 Narrative Resulting Agency Comment [facility] Health [facility] [address] [facility] [phone] Hazel Boyer MD LAB - CHEMISTRY JIM JENKINS [facility] ACCOUNT BILL [address] [place] [address] from Last 3 Months or Most Recently Relevant to Health Maintenance Administered Medications Advance Directives * Full Code (Latest Code [...] 4:30 PM 07/09/2016 1:40 PM Care Teams Engineer Third Assistant Relationship Specialty [place] [address] [address] PCP - General 03/30/12 [place] [address] [address] Anesthesiology-Pain Management 06/09/14
--- OUTSIDE RECORDS SUMMARY | 2024-10-15 13:34 | XMS_ITS | Referral Summary ---
Author Organization [facility] Address [address] [facility] [place] [address] Care Team Providers Care Assembly Line Robot Operator Name Role Phone Unknown, Notinfile Primary Care [...] Active Active Problems No known active problems Social History Tobacco Use Types Packs/Day Years Used Date Smoking Tobacco: Former Cigarettes Q uit: 2001 Smokeless Tobacco: Never Tobacco Cessation:Counseling Given: Not Answered Personal Safety Answer Date Recorded Getting School Help Needed Not on file 09/10 Sex and Gender Information Value Date Recorded Sex Assigned at Not on file Legal Sex Male 7:27 AM X RAY TECHNICIAN Gender Identity Not on file Sexual Orientation Not on file Last Filed Vital Signs Vital Sign Reading Time Taken Comments Blood Pressure 194/84 10/14/2022 4:10 PM X RAY TECHNICIAN patient states he has not taken his BP meds regularly since became ill 2 days ago Pulse 76 10/14/2022 4:10 PM X RAY TECHNICIAN Temperature 36.7 C (98 F) 10/14/2022 4:10 PM X RAY TECHNICIAN Respiratory Rate 16 10/14/2022 4:10 PM X RAY TECHNICIAN Oxygen Saturation 97% 10/14/2022 4:1 0 PM X RAY TECHNICIAN Inhaled Oxygen Concentration - - Weight 98.9 kg (218 lb) 10/14/2022 4:10 PM X RAY TECHNICIAN Height 182.9 cm (6') 10/14/2022 4:10 PM X RAY TECHNICIAN Body Mass Index 29.57 10/14/2022 4:10 PM X RAY TECHNICIAN Plan of Treatment Not on file Insurance [facility] W MARTINEZ VALLADARES [address] CHOICE PLUS [facility] HMO/PPO Address: [facility] [address] [place] [address] [facility] CHOICE PLUS [facility] HMO/PPO Address: [facility] [address] [place] [address] Care Teams Assembly Line Robot Operator Relationship Specialty Start Date End Date Unknown, Notinfile PCP - General 10/14/22
--- OUTSIDE RECORDS SUMMARY | 2024-10-15 13:34 | XMS_ITS | Continuity of Care Document ---
Author Name Auto Generated, Auto Generated Organization [facility] Support Name Relationship Address Phone Joan Ritter Spouse Unknown Unavailable Summary Purpose Consult/Referral Allergies, Adverse Reactions, Alerts Type Description/Agent Code Date Allergy Active Date Allergy Inactivated Date of Last Reaction Adverse Reactions Severity Status Comments Source of Information [facility] [facility] No Known Allergies Active Patient History Medications Medications Prescription Date Begun Date Discontinued Status Associated Diagnoses Ordering Provider acetaminophen 500 mg tablet 2 Tablets 3 Times Daily for 10 Days 09/17/19 25 Active Abdiaziz Flores omeprazole 20 mg tablet,delayed release 1 Tablet Every 1 Day for 42 Days 09/17/19 25 Active Abdiaziz Flores oxyCODONE 10 mg tablet 1/2-1 Tab PRN Every 4 Hours 09/17/19 25 Active Abdiaziz Flores aspirin 81 mg tablet,delayed release 1 Tablet 2 Times Daily for 42 Days 09/17/19 25 Active Abdiaziz Flores furosemide 40 mg tablet 1 Tablet Every 1 Day 09/17/19 25 Active Abdiaziz Flores carvediloL 12.5 mg tablet 1 Tablet 2 Times Daily 09/17/19 25 Active Abdiaziz Flores cloNIDine HCL 0.1 mg tablet 1 Tablet Hour Of Sleep 09/17/19 25 Active Abdiaziz Folres fenofibrate micronized 200 mg capsule 1 Capsule Every 1 Day 09/17/19 25 Active Abdiaziz Flores gabapentin 300 mg capsule 1 Capsule 3 Times Daily 09/17/19 25 Active Abdiaziz Flores hydrALAZINE 100 mg tablet 1 Tablet 3 Times Daily 09/17/19 25 Active Abdiaziz Flores lisinopriL 40 mg tablet 1 Tablet Every 1 Day 09/17/19 25 Active Abdiaziz Flores metFORMIN 500 mg tablet 1 Tablet 3 Times Daily 09/17/19 25 Active Mark Abdiaziz multivitamin tablet 1 Every 1 Day 09/17/19 25 Active Abdiaziz Flores simvastatin 80 mg tablet 1 Tablet Every 1 Day 09/17/19 25 Active Abdiaziz Flores spironolactone 25 mg tablet 1 Tablet Every 1 Day 09/17/19 25 Active Abdiaziz Flores Conditions/Problems No Known Problems Procedures No Known Procedures
--- OUTSIDE RECORDS SUMMARY | 2024-10-15 13:34 | XMS_ITS ---
Author Organization 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 He has had multiple surgeries on hands, shoulders. And had surgery on left hip. He has chronic hand, hip, back and shoulder pain. No hx of opioid abuse and uses pain meds rarely and sporadically with pain flare up. Update 03/28/2022. 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 Hospitalized 2 weeks. Had rehab. In [...] the fall as well. Back pain 06/09/2011 Current Oncology Plans No current plan information found. Past Plans No past plan information found. Radiation Treatments * No radiation treatments are documented for this patient in [facility]. Treatments may have been administered in another system. 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 Hospitalized 2 weeks. Had rehab. In [...] Mixed hyperlipidemia 03/15/2012 015 Coronary atherosclerosis of [place] coronary artery 03/13/2012 04/22/2013 HTN 03/13/2012 05/15/2015 Pure hypercholesterolemia 03/13/2012 Pure hyperglyceridemia 03/13/201204/22 Nephrolithiasis 03/13/2012 05/31/2018 Gout 03/13/2012 07/14/2015
--- OUTSIDE RECORDS SUMMARY | 2024-10-15 13:35 | XMS_ITS | Continuity of Care Document ---
Author Organization [employer] Address [address] [place] [address] Phone Care Team Providers Care Sap Business Intelligence Consultant Name Role Phone Launch Yokasta GIL Unavailable Unavailable Allergies, Adverse Reactions, Alerts Substance Reaction Status Criticality ezetimibe MSkel Active No Information Medications Medication Instructions Dosage Effective Dates (start - stop) Status Comments labetalol 200 mg Tab take 1 tablet (200MG) by oral route 2 times every day 200 MG - Active FENOFIBRATE 200 MG CAPSULE 1 QD-daily - Active SIMVASTATIN 80 MG TABLET 1 QHS - Active clonidine 0.2 mg Tab take 1 tablet (0.2MG) by oral route 4 times every day 0.2 MG - Active hydrocodone-acetaminoph en 5 mg-325 mg Tab take 1 tablet by oral route every 4 hours as needed for pain 1 tablet - Active SPIRONOLACTONE 25 MG TABLET 1 QD 0.2 MG - Active LISINOPRIL 40 MG TABLET 1 QAM 0.2 MG - Ac tive PLAVIX 75 MG TABLET 1 DAILY 0.2 MG - Active ALLOPURINOL 300 MG TABLET 1 QD-daily 0.2 MG - Active HYDRALAZINE 50 MG TABLET 1 QID 0.2 MG - Active GLUCOPHAGE 500 MG TABLET 2 DAILY 0.2 MG - Active ZESTRIL 10 MG TABLET 1 QD-daily 0.2 MG - Acti ve CYCLOBENZAPRINE HCL 10MG TABS 1 TID 0.2 MG - Active IBUPROFEN 800 MG TABLET 1 TID 0.2 MG - Ac tive TEKTURNA 150 MG TABLET 1 QD-daily 0.2 MG - Ac tive VIAGRA 50MG TABS 1 DIRECTE 0.2 MG - Active NITROGLYCERIN 0.4 MG TAB SL 1 DIRECTE 0.2 MG - Active ECOTRIN 325MG TABS 1 QAM 0.2 MG - Active Advance Directives Directive Yes / No Effective Date File Name No Information Encounters Encounter Description Practice Location Reason(s) For Visit Diagnoses Date Provider Providers Copied on Encounter [facility], [address], [place], [place], [address] , tel: [phone] [facility] No Information 3 Launch Yokasta. [address] Jacinto Patton, [address], [id number], . tel: [phone] [facility], [address], [place], [place], [address] , tel:[phone] [facility] No Information 2 Launch Yokasta. [address]266 Jacinto Patton, [address], [address], . tel: [phone] [facility], [address], [place], [place], [address] , tel: [phone] [facility] No Information Launch Yokasta. [address] Jacinto Patton, [address] [address], [place], [place], [address], . tel: [phone] [facility], [address], [place], [place], [address] , tel: [phone] [facility] No Information Walter Hess. [address] Jacinto Patton, [facility] [address], [place], [address], . tel:[phone] [facility], [address], [place], [place], [address] , tel: [phone] [facility] No Information Sep-0 9-201 1 Tiffanie Melton. [address] Jac[address], [address], [place], [place], [address]. tel:[phone] [facility], [address], [place], [place], [address] , [place] tel: Conversion Department No Information May-0 7-201 1 Conversion Doctor. [address] [facility], [place], [address], [place]. [facility], [address], [place], [place], [address] , [place] tel: [facility] BACKACHE NOS Sep-2 1-200 9 Conversion Doctor. [address] [facility], [place], [address], [place]. [facility], [address], [place], [place], [address] , [place] tel: [facility] [facility] DMII WO CMP NT ST UNCNTRBENIGN HYPERTENSIONIMPOT ENCE, ORGANIC ORIGNCHR ISCHEMIC HRT DIS NOSGOUT NOSLONG-TERM USE MEDS NEC Sep-0 8-200 8 Walter Hess. [address] Jacinto Pat[address], [address], [place], [place], [address], . tel:[phone] [facility], [address], [place], [place], [address] , [place] tel: [facility] DMII RENL NT ST UNCNTRLD Alexsander-1 5-200 8 Walter Hess. [address], [address], [place], [place], [address], . tel:[phone] [facility], [address], [place], [place], [address] , [place] tel: [facility] JOINT PAIN-UP/ARM Dec- 1-200 7 Walter Hess. [address], [address], [place], [place], [address], . tel:[phone] [facility], [address], [place], [place], [address] , [place] tel: [facility] NEPHRITIS NOS Nov- 3-200 7 Walter Hess. [address], [address], [place], [place], [address], . tel: [phone] [facility], [address], [place], [place], [address] , [place] tel: [facility] PURE HYPERGLYCERIDEMIA Oct-2 9200 7 Conversion Doctor. [address] [facility], [place], [address], [place]. [facility], [address], [place], [place], [address] , [place] tel: [facility] DATA SERVICES DEVELOPER KIDNEY DIS STAGE IIBEN HY KID W CR KID I-IV Oct-2 4200 7 Watsonmack Hess. [address], [address], [place], [place], [address], . tel: [phone] [facility], [address], [place], [place], [address] , [place] tel: [facility] MALAISE AND FATIGUE NEC Jun-2 7 Watsonmack Hess. [address], [address], [place], [place], [address], . tel:[phone] [facility], [address], [place], [place], [address] , [place] tel: [facility] VACCIN FOR INFLUENZA Jun-2 7 Walter Hess. [address], [address], [place], [place], [address], . tel:[phone] [address], [place], [place], [address] , [place] tel:[phone] [facility] COR ATH UNSP VSL NTV/GFTMIXED HYPERLIPIDEMIA Oct-1 9200 7 Walter Hess. [address], [address], [place], [place], [address], . tel: [phone] [facility], [address], [place], [place], [address] , [place] tel: [facility] HYPERLIPIDEMIA NEC/NOS Jun-1 8200 7 Walter Hess. [address], [address], [place], [place], [address], . tel: [phone] [facility], [address], [place], [place], [address] , [place] tel: [phone] [facility] ESOPHAGEAL REFLUX Aug-2 2-200 6 Watsonmack Hess. [address], [address] [address], [place], [place], [address], . tel: [phone] [facility], [address], [place], [place], [address] , [place] tel:[phone] [facility] NONSPECIF SKIN ERUPT NEC Vahe-2 1-200 4 Watsonmack Hess. [address], [address] [address], [place], [place], [address], . tel: [phone] [facility], [address], [place], [place], [address] , tel:[phone] [facility] GENERAL OSTEOARTHROSIS 7-200 4 Watsonmack Hess. [address], [facility] [address], [place], [place], [address], [place]. tel: [phone] [facility], [address], [place], [place], [address] , [place] tel: [phone] [facility] OBESITY NOS Aug 1-200 3 Walter Hess. [address], [address] [place] [address], [place], [place], [address], . tel: [phone] [facility], [address], [place], [place], [address] , [place] tel:[phone] [facility] BLOOD IN STOOL Apr-1 4-200 3 Walter Hess. [address], [address] [address], [place], [place], [address], . tel: [phone] [facility], [address], [place], [place], [address] , tel: [phone] [facility] HISTORY OF TOBACCO USE Apr-0 3-200 2 Walter Hess. [address], [facility] [address], [place], [place], [address], . tel:[phone] [facility], [address], [place], [place], [address] , tel: [phone] [facility] HYPERTENSION NOSCELLULITIS OF LEG 0 Watsonmack Hess. [address], [address], [place], [place], [address], . tel:[phone] [facility], [address], [place], [place], [address] , tel: [phone] [facility] DERMATITIS DUE TO PLANT 0 Watsonmack Hess. [address] Jac[address], [address], [place], [place], [address], . tel:[phone] Family History Family Member Type Diagnosis Age At Onset No Information Payers Payer name Insurance type Covered democrat ID Authoriza tion(s) No Information Social History Type Description Quantity Date Captured Comments Sex Male Smoking Status No Information Chief Complaint And Reason For Visit No Information Reason For Referral Reason For Referral No Information History Of Present Illness Encounter Date Complaint History Of Prese nt Illness No Information Functional Status Date Functional Assessmen t No Information Instructions Date Instruction Additional Infor mation No Information Assessments Type Assessment Date No Information Patient Care Teams Name Effective Dates (start - stop) Status Members No Information
--- OUTSIDE RECORDS SUMMARY | 2024-10-15 13:38 | XMS_ITS | Continuity of Care Document ---
Author Organization [facility] Address [address] [place] [address] Phone Care Team Providers Care Comber Tender Name Role Phone Launch Yokasta GIL Unavailable [...] Diagnoses Date Provider Providers Copied on Encounter [facility], [address], [place], [place], [address] , tel: [phone] [facility] No Information 3 Launch Yokasta. [address] Jacinto Patton, [address], [address], . tel: [phone] [employer] [facility], [address], [place], [place], [address] , tel:[phone] [facility] No Information 2 Launch Yokasta. [address] Jacinto Patton, [address], [address], . tel: [phone] [employer] [facility], [address], [place], [place], [address] , tel: [phone] [facility] No Information Launch Yokasta. [address] Jacinto Pat[address], [address] [address], [place], [place], [address], . tel: [phone] [employer] [facility], [address], [place], [place], [address] , tel: [phone] [facility] No Information Walter Hess. [address] Jacinto Patton, [facility] [address], [place], [address], . tel:[phone] [employer] [facility], [address], [place], [place], [address] , tel: [phone] [facility] No Information Sep-0 9-201 1 Tiffanie Melton. [address] [address], [address], [place], [place], [address]. tel:[phone] [facility], [address], [place], [place], [address] , [place] tel: Conversion Department No Information May-0 7-201 1 Conversion Doctor. [address] [facility], [place], [address], [place]. [facility], [address], [place], [place], [address] , [place] tel: [facility] BACKACHE NOS Sep-2 1-200 9 Conversion Doctor. [address] [facility], [place], [address], [place]. [facility], [address], [place], [place], [address] , [place] tel: [facility] DMII WO CMP NT ST UNCNTRBENIGN HYPERTENSIONIMPOT ENCE, ORGANIC ORIGNCHR ISCHEMIC HRT DIS NOSGOUT NOSLONG-TERM USE MEDS NEC Sep-0 8-200 8 Walter Hess. [address] Jacinto [address], [address], [place], [place], [address], . tel:[phone] [facility], [address], [place], [place], [address] , [place] tel: [facility] DMII RENL NT ST UNCNTRLD Alexsander-1 5-200 8 Walter Hess. [address], [address], [place], [place], [address], . tel:[phone] [facility], [address], [place], [place], [address] , [place] tel: [facility] JOINT PAIN-UP/ARM Dec- 1-200 7 Walter Hess. [address], [address], [place], [place], [address], . tel:[phone] [facility], [address], [place], [place], [address] , [place] tel: [facility] NEPHRITIS NOS Nov- 3-200 7 Walter Hess. [address], [address], [place], [place], [address], . tel: [phone] [facility], [address], [place], [place], [address] , [place] tel: [facility] PURE HYPERGLYCERIDEMIA Oct-2 9200 7 Conversion Doctor. [address] [facility], [place], [address], [place]. [facility], [address], [place], [place], [address] , [place] tel: [facility] HOME HEALTH CARE PHYSICIAN KIDNEY DIS STAGE IIBEN HY KID W CR KID I-IV Oct-2 4200 7 Watsonmack Hess. [address], [address], [place], [place], [address], . tel: [phone] [facility], [address], [place], [place], [address] , [place] tel: [facility] MALAISE AND FATIGUE NEC Jun-2 7 Watsonmack Hess. [address], [address], [place], [place], [address], . tel:[phone] [facility], [address], [place], [place], [address] , [place] tel: [facility] VACCIN FOR INFLUENZA Jun-2 7 Walter Hess. [address], [address], [place], [place], [address], . tel:[phone] [facility] [address], [place], [place], [address] , [place] tel:[phone] [facility] COR ATH UNSP VSL NTV/GFTMIXED HYPERLIPIDEMIA Oct-1 9200 7 Walter Hess. [address], [address], [place], [place], [address], . tel: [phone] [facility], [address], [place], [place], [address] , [place] tel: [facility] HYPERLIPIDEMIA NEC/NOS Jun-1 8200 7 Walter Hess. [address], [address], [place], [place], [address], . tel: [phone] [facility], [address], [place], [place], [address] , [place] tel: [phone] [facility] ESOPHAGEAL REFLUX Aug-2 2-200 6 Watsonmack Hess. [address], [address] [address], [place], [place], [address], . tel: [phone] [facility], [address], [place], [place], [address] , [place] tel:[phone] [facility] NONSPECIF SKIN ERUPT NEC Vahe-2 1-200 4 Watsonmack Hess. [address], [address] [address], [place], [place], [address], . tel: [phone] [facility], [address], [place], [place], [address] , tel:[phone] [facility] GENERAL OSTEOARTHROSIS 7-200 4 Watsonmack Hess. [address], [facility] [address], [place], [place], [address], [place]. tel: [phone] [facility], [address], [place], [place], [address] , [place] tel: [phone] [facility] OBESITY NOS Aug 1-200 3 Walter Hess. [address], [address] [address], [place], [place], [address], . tel: [phone] [facility], [address], [place], [place], [address] , [place] tel:[phone] [facility] BLOOD IN STOOL Apr-1 4-200 3 Walter Hess. [address], [address] [address], [place], [place], [address], . tel: [phone] [employer], [address], [place], [place], [address] , tel: [phone] [facility] HISTORY OF TOBACCO USE Apr-0 3-200 2 Walter Hess. [address], [facility] [address], [place], [place], [address], . tel:[phone] [employer], [address], [place], [place], [address] , tel: [phone] [facility] HYPERTENSION NOSCELLULITIS OF LEG 0 Watsonmack Hess. [address] Jac[address], [address], [place], [place], [address], . tel:[phone] [employer], [address], [place], [place], [address] , tel: [phone] [facility] DERMATITIS DUE TO PLANT 0 Watsonmack Hess. [address] Jacinto [address], [address], [place], [place], [address], . tel:[phone] Family History Family Member Type Diagnosis Age At Onset No Information Payers Payer name Insurance type Covered constitution party ID Authoriza tion(s) No Information Social History [...]
== END 2024-10-15 13:29 | disposition home or self-care (01) ==
PROVIDERS: Emergency Provider Nurse Practitioner
DX: J06.9 Acute upper respiratory infection, unspecified (principal); Z20.822 Contact with and (suspected) exposure to COVID-19; I25.10 Atherosclerotic heart disease of native coronary artery without angina pectoris; I10 Essential (primary) hypertension; E78.00 Pure hypercholesterolemia, unspecified; I25.2 Old myocardial infarction; Z95.5 Presence of coronary angioplasty implant and graft
CPT/HCPCS: 87081; 87426; 87804; 87880; 99203; G0463